=== PATIENT | male | born 1945 | race African-American/Black ===

== ENCOUNTER 2020-04-18 00:51 | Inpatient (IN) ==
--- NOTE | 2020-04-18 01:06 | Emergency Department Note ---
History of Present Illness General Chief complaint: Stroke/CVA Symptoms Stated complaint: STROKE SX Time Seen by Provider: 04/18/20 00:53 Source: patient and EMS Mode of arrival: EMS Limitations: no limitations History of Present Illness Provider complaint: Weakness Onset (ago): unknown Current Pain Intensity: 0 Associated symptoms: + malaise This is a 75-year-old male presents via EMS from home after an episode of we akness and shakiness per his daughter who called 911. Daughter is the patient's caregiver, and helps to manage his ongoing medical problems. Per EMS on their arrival patient's systolic blood pressure was in the 70s, an IV was started and he was given a 500 mL bolus of fluid which brought him up to the 90s. Patient's initial oxygen saturations in room air were in the 80s, however with 6 L via na héctor cannula he came up into the 90s also. 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 Daughter relayed to EMS that patient had blood with a bowel movement earlier today although on my interview of the patient he denies this. Patient does have a feeding tube which she states is working well. Patient denies any other medication changes, sick contact or exposure to coronavirus. Patient denies any pain. Patient states he did use his breathing treatments today as scheduled. Medications that EMS brought with for the patient show that he does take aspirin 81 mg daily, no other anticoagulation. Patient also takes medication for blood pressure, diabetes, and BPH. Pt seen during a time of high acuity and national emergency pandemic while wearing PPE. Home Medications Medication Instructions Recorded Confirmed Type amlodipine 10 mg PO QAM 05/18/18 04/18/20 History aspirin 81 mg PO QAM 05/18/18 04/18/20 History cholecalciferol (vitamin D3) 2,000 unit PO QAM 05/18/18 04/18/20 History [Vitamin D3] enalapril maleate 10 mg PO BID 05/18/18 04/18/20 History glipizide 5 mg PO DAILY 05/18/18 04/18/20 History metoprolol tartrate 50 mg PO BID 05/18/18 04/18/20 History tamsulosin 0.4 mg PO HS 05/18/18 04/18/20 History albuterol sulfate 2 puff INHALATION QID PRN 05/27/19 04/18/20 History albuterol sulfate 2.5 mg INH Q6H PRN #180 ml 05/27/19 04/18/20 Rx finasteride 5 mg PO DAILY 04/18/20 04/18/20 History Allergies Allergy/AdvReac Type Severity Reaction Status Date / Time No Known Allergies Allergy Verified 04/18/20 01:52 Past Med/Surg History Medical History (Updated 04/19/20 @ 22:05 by Chhaya Spencer DO) Acute respiratory failure with hypoxia COPD (chronic obstructive pulmonary disease) Diabetes Family history non-contributory History of head and neck cancer History of tobacco abuse Hypertension Lung nodules Tongue cancer Surgical History No pertinent past surgical history Family History Other Family history non-contributory Social History Smoking Status: Never smoker Tobacco Type: Cigarettes Hx Alcohol Use: No Hx Substance Use: No Preferred Language: [place]an Communication Ability: Effective [employer] Required: No Beliefs That Will Affect Care: None Current Living Situation: Family Feels Safe at Home: Yes Safety Concerns: Feels Safe At This Time Assistive Devices: Glasses and Walker Review of Systems See HPI for pertinent positives & negatives. and A total of 10 systems reviewed and were otherwise negative Physical Exam Vital Signs Vital Signs - 24 hr 04/18/20 00:58 04/18/20 01:20 04/18/20 01:30 Temperature 36.6 C Temperature Source Oral Pulse Rate 110 H 101 H 98 H Respiratory Rate 18 20 13 Respiratory Effort / Characteristics Non-Labored Spontaneous Respiratory Depth Normal Respiratory Pattern Regular Blood Pressure 91/60 L 99/54 L 94/53 L Blood Pressure Mean 70 69 66 Blood Pressure Position Lying Pulse Oximetry 92 94 92 Oxygen Delivery Method Room Air Room Air Room Air Sepsis Recent Fever Within 48 Hours No Sepsis New/Unexplained Change in Mental Status No Sepsis Action Taken by Nursing Physician Notified 04/18/20 02:00 04/18/20 02:46 04/18/20 03:00 Temperature Temperature Source Pulse Rate 97 H 96 H 94 H Respiratory Rate 22 20 24 Respiratory Effort / Characteristics Respiratory Depth Respiratory Pattern Blood Pressure 102/53 L 113/58 L 104/54 L Blood Pressure Mean 69 76 70 Blood Pressure Position Pulse Oximetry 93 92 93 Oxygen Delivery Method Room Air Room Air Sepsis Recent Fever Within 48 Hours Sepsis New/Unexplained Change in Mental Status Sepsis Action Taken by Nursing 04/18/20 03:30 04/18/20 04:00 Temperature Temperature Source Pulse Rate 96 H 90 Respiratory Rate 22 21 Respiratory Effort / Characteristics Respiratory Depth Respiratory Pattern Blood Pressure 103/58 L 106/56 L Blood Pressure Mean 73 72 Blood Pressure Position Pulse Oximetry 91 93 Oxygen Delivery Method Room Air Room Air Sepsis Recent Fever Within 48 Hours Sepsis New/Unexplained Change in Mental Status Sepsis Action Taken by Nursing GENERAL: alert, well appearing, well nourished, no distress, non-toxic EYE EXAM: normal conjunctiva, PERRL and EOM's grossly intact OROPHARYNX: no exudate, no erythema, lips, buccal mucosa, and mucous membranes are moist NECK: supple, no nuchal rigidity, no adenopathy, non-tender LUNGS: Clear to auscultation. Normal chest wall mechanics, no w/r/r HEART: no murmurs, S1 normal and S2 normal ABDOMEN: abdomen soft, non-tender, normo-active bowel sounds, no masses, no rebound or guarding. PEG tube noted in usual position, no surrounding erythema or drainage. BACK: Back is symmetrical on inspection and there is no deformity, no midline tenderness, no CVA tenderness. SKIN: no rashes and no bruising UPPER EXTREMITIES: upper extremities are grossly normal. FROM, nml pulses b/l. LOWER EXTREMITIES: No pitting edema. FROM, nml pulses b/l. NEURO EXAM: Normal sensorium, cranial nerves II-XII grossly intact, normal speech, no gross weakness of arms, no gross weakness of legs. Gross sensation intact. Course Course 0120: With assistance of case management we did try to review prior [facility] records. There is minimal information available. 0200: I attempted to contact the daughter. The number listed in system was called and went to voicemail which then hangs up on you because it states the mailbox is full. 0335: DIscussed CT's with STAT Rad. 0345: Updated patient on results. Patient now off oxygen at 90% which I suspect is likely his normal. Blood pressure markedly improved. We did again discuss patient's bowel movement and concern for daughter noting blood. Patient states he does struggle with constipation and has had harder stools recently. Patient states he has previously had colonoscopy that were reported to him as normal. 0435: Discussed with Dr. Brock. Patient did result Covid positive which may also be contributing to his underlying symptoms. Patient's UA also just returne d and appears positive for urinary tract infection. Administered Medications Aspirin (Aspirin 81 Mg Chew) 81 mg PEG QAM [facility] Stop: 05/18/20 09:59 Last Admin: 04/19/20 08:13 Dose: 81 mg Documented by: [id number] Admin: 04/18/20 10:24 Dose: 81 mg Documented by: [id number] Enoxaparin Sodium (Enoxaparin Inj 40 Mg/0.4 Ml Syr) 40 mg SQ DAILY [facility] Stop: 05/18/20 08:59 Last Admin: 04/19/20 08:14 Dose: 40 mg Documented by: [id number] Admin: 04/18/20 10:24 Dose: 40 mg Documented by: [id number] Enteral Nutritional Formula (Fibersource Hn 1.2 Fredo 1000 Ml Bag) 1,000 ml GT TODAY@1300 [facility]; Protocol Stop: 05/18/20 12:59 Last Admin: 04/19/20 12:24 Dose: 1,000 ml Documented by: [id number] Admin: 04/18/20 15:08 Dose: 1,000 ml Documented by: [id number] Finasteride (Finasteride 5 Mg Tab) 5 mg PO DAILY [facility] Stop: 05/18/20 08:59 Last Admin: 04/18/20 10:02 Dose: Not Given Documented by: [id number] Piperacillin Sod/Tazobactam (Sod 3.375 gm/ Dextrose) 115 mls @ 28.75 mls/hr IV Q8H [facility]; Protocol Stop: 04/25/20 13:59 Last Infusion: 04/19/20 18:00 Dose: 0 mls/hr Documented by: [id number] Admin: 04/19/20 13:59 Dose: 28.8 mls/hr Documented by: [id number] Infusion: 04/19/20 11:10 Dose: 0 mls/hr Documented by: [id number] Admin: 04/19/20 06:18 Dose: 28.8 mls/hr Documented by: [id number] Infusion: 04/19/20 00:53 Dose: 0 mls/hr Documented by: [id number] Admin: 04/18/20 20:36 Dose: 28.8 mls/hr Documented by: [id number] Infusion: 04/18/20 19:15 Dose: 0 mls/hr Documented by: [id number] Admin: 04/18/20 15:08 Dose: 28.8 mls/hr Documented by: [id number] Dexamethasone Sodium Phosphate (6 mg/ Syringe) 1.5 mls @ 1 mls/min IV DAILY [facility] Stop: 05/18/20 08:59 Last Admin: 04/19/20 08:19 Dose: 1 mls/min Documented by: [id number] Admin: 04/18/20 10:24 Dose: 1 mls/min Documented by: [id number] Insulin Aspart (Insulin Aspart 100 Units/Ml 3 Ml Pen) 0 units SC Q6 [facility] Stop: 05/19/20 11:59 Last Admin: 04/19/20 18:19 Dose: 9 units Documented by: [id number] Cosigned by: [id number] Admin: 04/19/20 12:46 Dose: 8 units Documented by: [id number] Cosigned by: [id number] Insulin Glargine (Insulin Glargine Solostar 100 Units/Ml 3 Ml Pen) 7 units SC DAILY [facility] Stop: 05/19/20 06:19 Last Admin: 04/19/20 10:59 Dose: Not Given Documented by: [id number] Admin: 04/19/20 09:00 Dose: 7 units Documented by: [id number] Cosigned by: [id number] Sterile Water (Tube Feeding Water Flush) 200 ml GT Q6H [facility] Stop: 05/19/20 14:59 Last Admin: 04/19/20 14:06 Dose: 200 ml Documented by: [id number] Umeclidinium/Vilanterol (Umeclidinium/Vilanterol 62.5/25mcg 7 Puffs/Inhaler) 1 puffs INH DAILY [facility] Stop: 05/19/20 08:59 Last Admin: 04/19/20 08:11 Dose: 1 puffs Documented by: [id number] Vitamin D (Cholecalciferol 1,000 Units 25 Mcg Tab) 2,000 units PEG QAM [facility] Stop: 05/18/20 09:59 Last Admin: 04/19/20 08:13 Dose: 2,000 units Documented by: [id number] Admin: 04/18/20 10:25 Dose: 2,000 units Documented by: [id number] Discontinued Medications Aspirin (Aspirin 81 Mg Ectab) 81 mg PO QAM [facility] Stop: 05/18/20 08:59 Last Admin: 04/18/20 10:56 Dose: Not Given Documented by: [id number] Lactated Ringer's (Lr) 1,000 mls @ 250 mls/hr IV .Q4H [facility] Stop: 05/18/20 00:59 Last Admin: 04/18/20 06:13 Dose: Not Given Documented by: [id number] Infusion: 04/18/20 05:27 Dose: 0 mls/hr Documented by: [id number] Admin: 04/18/20 01:21 Dose: 250 mls/hr Documented by: [id number] Ceftriaxone Sodium (Rocephin) 2,000 mg in 70 mls @ 140 mls/hr IV NOW STA Stop: 04/18/20 05:07 Last Infusion: 04/18/20 05:58 Dose: 0 mls/hr Documented by: [id number] Admin: 04/18/20 05:28 Dose: 140 mls/hr Documented by: [id number] Sodium Chloride (Nss 1000ml) 1,000 mls @ 999 mls/hr IV .Q1H1M ONE Stop: 04/18/20 05:49 Last Infusion: 04/18/20 06:29 Dose: 0 mls/hr Documented by: [id number] Admin: 04/18/20 05:28 Dose: 999 mls/hr Documented by: [id number] Sodium Chloride (Nss 1000ml) 1,000 mls @ 100 mls/hr IV .Q10H [facility] Stop: 05/18/20 07:59 Last Infusion: 04/19/20 19:03 Dose: 0 mls/hr Documented by: [id number] Infusion: 04/19/20 11:12 Dose: 0 mls/hr Documented by: [id number] Admin: 04/19/20 08:20 Dose: 100 mls/hr Documented by: [id number] Infusion: 04/19/20 08:19 Dose: 0 mls/hr Documented by: [id number] Admin: 04/18/20 20:37 Dose: 100 mls/hr Documented by: [id number] Infusion: 04/18/20 20:37 Dose: 100 mls/hr Documented by: [id number] Admin: 04/18/20 15:08 Dose: 100 mls/hr Documented by: [id number] Infusion: 04/18/20 15:08 Dose: 200 mls/hr Documented by: [id number] Admin: 04/18/20 10:19 Dose: 200 mls/hr Documented by: [id number] Piperacillin Sod/Tazobactam (Sod 3.375 gm/ Dextrose) 115 mls @ 230 mls/hr IV NOW STA; Protocol Stop: 04/18/20 09:01 Last Infusion: 04/18/20 10:57 Dose: 0 mls/hr Documented by: [id number] Admin: 04/18/20 10:19 Dose: 230 mls/hr Documented by: [id number] Insulin Aspart (Insulin Aspart 100 Units/Ml 3 Ml Pen) 0 units SC ACHS [facility] Stop: 05/18/20 07:31 Last Admin: 04/18/20 18:45 Dose: Not Given Documented by: [id number] Admin: 04/18/20 12:22 Dose: Not Given Documented by: [id number] Cosigned by: [id number] Admin: 04/18/20 09:45 Dose: 1 units Documented by: [id number] Cosigned by: [id number] Insulin Aspart (Insulin Aspart 100 Units/Ml 3 Ml Pen) 5 units SC NOW STA Stop: 04/19/20 06:20 Last Admin: 04/19/20 06:39 Dose: 5 units Documented by: [id number] Cosigned by: [id number] Ioversol (Optiray 320 125ml) 119 ml IV ONCE ONE Stop: 04/18/20 02:52 Last Admin: 04/18/20 02:51 Dose: 119 ml Documented by: [id number] Sterile Water (Tube Feeding Water Flush) 150 ml GT Q6H [facility] Stop: 05/18/20 14:59 Last Admin: 04/19/20 08:14 Dose: 150 ml Documented by: [id number] Admin: 04/19/20 04:26 Dose: 150 ml Documented by: [id number] Admin: 04/18/20 20:38 Dose: 150 ml Documented by: [id number] Admin: 04/18/20 15:07 Dose: 150 ml Documented by: [id number] Vitamin D (Cholecalciferol 1,000 Units 25 Mcg Tab) 2,000 units PO QAM [facility] Stop: 05/18/20 08:59 Last Admin: 04/18/20 10:56 Dose: Not Given Documented by: [id number] Medical Decision Making Differential Diagnosis Differential Diagnosis includes but is not limited to dehydration, stroke, anemia, hypoglycemia, hyponatremia, hypernatremia, urinary tract infection, pneumonia, bronchitis, sepsis, gastroenteritis, additional abdominal pathology, metabolic abnormalities and infections. Medical Records Attestation: I reviewed the patient's medical records. Home Medications Current Medication List: was personally reviewed by me Laboratory Data Attestation: I reviewed the patient's lab results. Result diagrams: 04/19/20 05:30 04/19/20 05:30 Lab Results 04/18/20 04/18/20 04/18/20 Range/Units 01:11 01:11 01:11 WBC 8.61 (4.8-10.8) K/uL RBC 4.54 L (4.7-6.1) M/uL Hgb 14.1 (14.0-18.0) g/dL Hct 41.9 L (42-52) % MCV 92.3 (80-100) fL MCH 31.1 (25-34) pg MCHC 33.7 (32-36) g/dL RDW Std Deviation 51.0 H (36.4-46.3) fL RDW Coeff of Jose R 15.0 H (11.5-14.5) % Plt Count 93 L (130-400) K/uL MPV 11.9 H (7.4-10.4) fL Neutrophils % (Manual) 74.0 % Lymphocytes % (Manual) 5.4 % Monocytes % (Manual) 3.6 % Neutrophils # (Manual) 6.37 (1.4-6.5) K/uL Total Absolute Neuts 6.37 (1.4-6.5) K/uL Lymphocytes # (Manual) 0.46 L (1.2-3.4) K/uL Total Abs Lymphocytes 1.93 (1.2-3.4) K/uL Monocytes # (Manual) 0.31 (0.11-0.59) K/uL Large Granular Lymphs 17.0 % # Lrg Granular Lymphs 1.46 K/uL RBC Morphology Unremarkable PT (9.0-12.0) Seconds INR (0.9-1.1) Sodium (136-145) mmol/L Potassium (3.5-5.1) mmol/L Chloride (98-107) mmol/L Carbon Dioxide (21-32) mmol/L Anion Gap (3-11) BUN (7-18) mg/dl Creatinine (0.6-1.4) mg/dl Est Cr Clr Drug Dosing ml/min Est GFR ( Amer) Est GFR (Non-Af Amer) BUN/Creatinine Ratio (10-20) Glucose (70-99) mg/dl Lactate 2.3 H* (0.4-2.0) mmol/L Calcium (8.5-10.1) mg/dl Magnesium (1.8-2.4) mg/dl Total Bilirubin (0.2-1) mg/dl AST (15-37) U/L ALT (12-78) U/L Alkaline Phosphatase (45-117) U/L Troponin I (0-0.045) ng/ml NT-Pro-B Natriuret Pep (0-1800) pg/ml Total Protein (6.4-8.2) gm/dl Albumin (3.4-5.0) gm/dl Globulin (2.5-4.0) gm/dl Albumin/Globulin Ratio (0.9-2) Lipase (73-393) U/L Procalcitonin (0-0.5) ng/ml TSH (0.300-4.500) uIu/ml Urine Color Urine Appearance (Clear) Urine pH (4.5-7.5) Ur Specific [place] (1.000-1.030) Urine Protein (Negative) Urine Glucose (UA) (Negative) Urine Ketones (Negative) Urine Blood (Negative) Urine Nitrite (Negative) Urine Bilirubin (Negative) Urine Urobilinogen (Negative) Ur Leukocyte Esterase (Negative) Urine WBC (Auto) (0-5) /hpf Urine RBC (Auto) (0-4) /hpf U Hyaline Cast (Auto) (0-5) /lpf U Epithel Cells (Auto) (0-5) /lpf Urine Bacteria (Auto) (Negative) COVID-19 Eval Order SARS-CoV-2, RNA, NAAT (NEGATIVE) Blood Type A Positive Antibody Screen NEGATIVE 04/18/20 04/18/20 04/18/20 Range/Units 01:11 01:11 01:12 WBC (4.8-10.8) K/uL RBC (4.7-6.1) M/uL Hgb (14.0-18.0) g/dL Hct (42-52) % MCV (80-100) fL MCH (25-34) pg MCHC (32-36) g/dL RDW Std Deviation (36.4-46.3) fL RDW Coeff of Jose R (11.5-14.5) % Plt Count (130-400) K/uL MPV (7.4-10.4) fL Neutrophils % (Manual) % Lymphocytes % (Manual) % Monocytes % (Manual) % Neutrophils # (Manual) (1.4-6.5) K/uL Total Absolute Neuts (1.4-6.5) K/uL Lymphocytes # (Manual) (1.2-3.4) K/uL Total Abs Lymphocytes (1.2-3.4) K/uL Monocytes # (Manual) (0.11-0.59) K/uL Large Granular Lymphs % # Lrg Granular Lymphs K/uL RBC Morphology PT 10.7 (9.0-12.0) Seconds INR 1.1 (0.9-1.1) Sodium 145 (136-145) mmol/L Potassium 3.5 (3.5-5.1) mmol/L Chloride 111 H (98-107) mmol/L Carbon Dioxide 27 (21-32) mmol/L Anion Gap 7.0 (3-11) BUN 47 H (7-18) mg/dl Creatinine 1.62 H (0.6-1.4) mg/dl Est Cr Clr Drug Dosing 34.7 ml/min Est GFR ( Amer) 47.1 Est GFR (Non-Af Amer) 40.6 BUN/Creatinine Ratio 29.1 H (10-20) Glucose 264 H (70-99) mg/dl Lactate (0.4-2.0) mmol/L Calcium 8.0 L (8.5-10.1) mg/dl Magnesium 2.2 (1.8-2.4) mg/dl Total Bilirubin 0.7 (0.2-1) mg/dl AST 41 H (15-37) U/L ALT 29 (12-78) U/L Alkaline Phosphatase 86 (45-117) U/L Troponin I 0.067 H* (0-0.045) ng/ml NT-Pro-B Natriuret Pep 631 (0-1800) pg/ml Total Protein 6.7 (6.4-8.2) gm/dl Albumin 2.4 L (3.4-5.0) gm/dl Globulin 4.3 H (2.5-4.0) gm/dl Albumin/Globulin Ratio 0.6 L (0.9-2) Lipase 448 H (73-393) U/L Procalcitonin 1.39 H (0-0.5) ng/ml TSH 0.692 (0.300-4.500) uIu/ml Urine Color Urine Appearance (Clear) Urine pH (4.5-7.5) Ur Specific [place] (1.000-1.030) Urine Protein (Negative) Urine Glucose (UA) (Negative) Urine Ketones (Negative) Urine Blood (Negative) Urine Nitrite (Negative) Urine Bilirubin (Negative) Urine Urobilinogen (Negative) Ur Leukocyte Esterase (Negative) Urine WBC (Auto) (0-5) /hpf Urine RBC (Auto) (0-4) /hpf U Hyaline Cast (Auto) (0-5) /lpf U Epithel Cells (Auto) (0-5) /lpf Urine Bacteria (Auto) (Negative) COVID-19 Eval Order SARS-CoV-2, RNA, NAAT (NEGATIVE) Blood Type Antibody Screen 04/18/20 04/18/20 04/18/20 Range/Units 03:30 04:10 04:12 WBC (4.8-10.8) K/uL RBC (4.7-6.1) M/uL Hgb (14.0-18.0) g/dL Hct (42-52) % MCV (80-100) fL MCH (25-34) pg MCHC (32-36) g/dL RDW Std Deviation (36.4-46.3) fL RDW Coeff of Jose R (11.5-14.5) % Plt Count (130-400) K/uL MPV (7.4-10.4) fL Neutrophils % (Manual) % Lymphocytes % (Manual) % Monocytes % (Manual) % Neutrophils # (Manual) (1.4-6.5) K/uL Total Absolute Neuts (1.4-6.5) K/uL Lymphocytes # (Manual) (1.2-3.4) K/uL Total Abs Lymphocytes (1.2-3.4) K/uL Monocytes # (Manual) (0.11-0.59) K/uL Large Granular Lymphs % # Lrg Granular Lymphs K/uL RBC Morphology PT (9.0-12.0) Seconds INR (0.9-1.1) Sodium (136-145) mmol/L Potassium (3.5-5.1) mmol/L Chloride (98-107) mmol/L Carbon Dioxide (21-32) mmol/L Anion Gap (3-11) BUN (7-18) mg/dl Creatinine (0.6-1.4) mg/dl Est Cr Clr Drug Dosing ml/min Est GFR ( Amer) Est GFR (Non-Af Amer) BUN/Creatinine Ratio (10-20) Glucose (70-99) mg/dl Lactate 1.4 (0.4-2.0) mmol/L Calcium (8.5-10.1) mg/dl Magnesium (1.8-2.4) mg/dl Total Bilirubin (0.2-1) mg/dl AST (15-37) U/L ALT (12-78) U/L Alkaline Phosphatase (45-117) U/L Troponin I (0-0.045) ng/ml NT-Pro-B Natriuret Pep (0-1800) pg/ml Total Protein (6.4-8.2) gm/dl Albumin (3.4-5.0) gm/dl Globulin (2.5-4.0) gm/dl Albumin/Globulin Ratio (0.9-2) Lipase (73-393) U/L Procalcitonin (0-0.5) ng/ml TSH (0.300-4.500) uIu/ml Urine Color Yellow Urine Appearance Clear (Clear) Urine pH 5.0 (4.5-7.5) Ur Specific [place] > 1.045 H (1.000-1.030) Urine Protein 1+ H (Negative) Urine Glucose (UA) Negative (Negative) Urine Ketones Negative (Negative) Urine Blood 2+ H (Negative) Urine Nitrite Positive A (Negative) Urine Bilirubin Negative (Negative) Urine Urobilinogen Negative (Negative) Ur Leukocyte Esterase 1+ H (Negative) Urine WBC (Auto) >30 H (0-5) /hpf Urine RBC (Auto) 0-4 (0-4) /hpf U Hyaline Cast (Auto) 5-10 H (0-5) /lpf U Epithel Cells (Auto) 0-5 (0-5) /lpf Urine Bacteria (Auto) 4+ H (Negative) COVID-19 Eval Order Covid19 IDNow atMWIC SARS-CoV-2, RNA, NAAT (NEGATIVE) Blood Type Antibody Screen 04/18/20 Range/Units 04:12 WBC (4.8-10.8) K/uL RBC (4.7-6.1) M/uL Hgb (14.0-18.0) g/dL Hct (42-52) % MCV (80-100) fL MCH (25-34) pg MCHC (32-36) g/dL RDW Std Deviation (36.4-46.3) fL RDW Coeff of Jose R (11.5-14.5) % Plt Count (130-400) K/uL MPV (7.4-10.4) fL Neutrophils % (Manual) % Lymphocytes % (Manual) % Monocytes % (Manual) % Neutrophils # (Manual) (1.4-6.5) K/uL Total Absolute Neuts (1.4-6.5) K/uL Lymphocytes # (Manual) (1.2-3.4) K/uL Total Abs Lymphocytes (1.2-3.4) K/uL Monocytes # (Manual) (0.11-0.59) K/uL Large Granular Lymphs % # Lrg Granular Lymphs K/uL RBC Morphology PT (9.0-12.0) Seconds INR (0.9-1.1) Sodium (136-145) mmol/L Potassium (3.5-5.1) mmol/L Chloride (98-107) mmol/L Carbon Dioxide (21-32) mmol/L Anion Gap (3-11) BUN (7-18) mg/dl Creatinine (0.6-1.4) mg/dl Est Cr Clr Drug Dosing ml/min Est GFR ( Amer) Est GFR (Non-Af Amer) BUN/Creatinine Ratio (10-20) Glucose (70-99) mg/dl Lactate (0.4-2.0) mmol/L Calcium (8.5-10.1) mg/dl Magnesium (1.8-2.4) mg/dl Total Bilirubin (0.2-1) mg/dl AST (15-37) U/L ALT (12-78) U/L Alkaline Phosphatase (45-117) U/L Troponin I (0-0.045) ng/ml NT-Pro-B Natriuret Pep (0-1800) pg/ml Total Protein (6.4-8.2) gm/dl Albumin (3.4-5.0) gm/dl Globulin (2.5-4.0) gm/dl Albumin/Globulin Ratio (0.9-2) Lipase (73-393) U/L Procalcitonin (0-0.5) ng/ml TSH (0.300-4.500) uIu/ml Urine Color Urine Appearance (Clear) Urine pH (4.5-7.5) Ur Specific [place] (1.000-1.030) Urine Protein (Negative) Urine Glucose (UA) (Negative) Urine Ketones (Negative) Urine Blood (Negative) Urine Nitrite (Negative) Urine Bilirubin (Negative) Urine Urobilinogen (Negative) Ur Leukocyte Esterase (Negative) Urine WBC (Auto) (0-5) /hpf Urine RBC (Auto) (0-4) /hpf U Hyaline Cast (Auto) (0-5) /lpf U Epithel Cells (Auto) (0-5) /lpf Urine Bacteria (Auto) (Negative) COVID-19 Eval Order SARS-CoV-2, RNA, NAAT POSITIVE A* (NEGATIVE) Blood Type Antibody Screen Imaging Data My Impression: X-ray: I interpreted the following studies. Chest: A single view study of the chest was reviewed and was negative for cardiomegaly, focal infiltrate, effusion, pulmonary edema, or wide mediastinum. Patient hyperinflated consistent with history of COPD. Radiologist's Impression: CT abdomen and pelvis with contrast: Thoracic findings as on CTA chest also today. 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 Large amount of mural thrombus. 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 The left common iliac, external and internal iliac arteries as well as the left internal iliac arteries are thrombosed. Focal thrombosis or stenosis of the right distal external iliac artery. Reconstitution opacification of the common femoral arteries. The right superficial artery is partially visualized and appears thrombosed. Limited evaluation. Percutaneous gastrostomy tube. Small hiatal hernia. No free air, free fluid. No bowel obstruction. No CT findings of acute pancreatitis. Gallstones or gallbladder wall calcification. Left renal cyst. Colonic diverticulosis of the ascending colon. Radiologist: Chandan Solorzano MD CTA chest: Breathing motion artifact limits evaluation of peripheral arteries. No central PE. No aortic dissection or aneurysm. Mediastinal and right hilar adenopathy. Precarinal node 2.6 cm. Query right infrahilar 2.7 cm mass versus part of adenopathy. Right upper lobe 11 mm nodule. Overall findings worrisome for malignancy. Recommend further work-up. Emphysema. Small focus of airspace disease or small nodularity also in the right upper lobe. Left lower lobe atelectasis or consolidation. Mild right lower lobe atelectasis. Radiologist: Chandan Solorzano MD ECG Data Attestation: I personally reviewed and interpreted this ECG as follows: Indication: + weakness Rate (beats per minute): 101 Rhythm: + sinus tachycardia ECG Intervals/blocks: + Normal QRS and + Normal QT ECG [place]: + Normal ECG ST segments: + Normal ST segments Additional Comments: Low voltage MDM Narrative This is an elderly male who presents via EMS after an episode of weakness at home. On initial evaluation from EMS patient found to be hypotensive and hypoxic. Patient's blood pressure was improved although still slightly low here on arrival after 500 mL bolus by EMS in route. Patient's oxygen saturations were in the mid 90s on 6 L via nasal cannula. Due to concern for condition as well as complicated past medical history, labs drawn and sent, patient started on additional IV fluids, and placed on a bus assistant. No ectopy or dysrhythmia noted. Patient's initial blood pressures in the 90s systolic. Ash cisneros denied any sense of weakness or shortness of breath during my initial evaluation. Patient cannot give medical history, does not always recall exact details. Patient able to be weaned off oxygen here and was holding oxygen saturations around 90 which I suspect is normal for him given his history of tobacco abuse and underlying COPD. Patient found to have a mildly elevated troponin, although EKG did not reveal any acutely concerning changes, patient denied any chest pain or trouble breathing while in the emergency room. Due to concern for unclear etiology as well as initial abnormal vitals but noticed by EMS, patient sent for additional CT imaging. Patient also found to have an elev ated lipase, and in light of questionable blood with a bowel movement, CT of the abdomen and pelvis was also added. I did discuss all results with the reading nighttime radiologist. The vascular findings noted appear to be chronic, and I do not feel the contribute to the findings this evening. Upon performing Covid testing for admission, patient was found to be Covid positive despite denying an y recent sick contacts or exposures. All this likely could explain his weakness, hypoxia, and even elevated troponin, patient still at risk for poor outcome. No evidence of colitis, bowel obstruction, mesenteric ischemia, or acute GI bleeding noted. Patient does admit to constipation and recent harder bowel movements with the need to push or strain. Patient wished to avoid a rectal exam, I feel it is reasonable at this time given stable H&H and unremarkable CT. Patient stools could be tested while he is an inpatient. Patient does use an aspirin daily no other anticoagulation. During my discussion with the hospitalist, patient's UA finally resulted also and did appear to reveal urinary tract infection. In light of this as well as patient's risk for sepsis, a procalcitonin and blood cultures were added. Patient's initial lactic acid was mildly elevated however the repeat was improved. Additional IV fluids were added as a precaution as well as IV antibiotics. An order was placed for continuous cardiac monitoring. The monitor shows a rate of _86_ with _normal sinus_ rhythm. Impression & Plan Hypoxia, Uses feeding tube, COPD (chronic obstructive pulmonary disease), Weakness, Hypotension, Acute UTI (urinary tract infection), Elevated troponin, COVID-19, Thrombocytopenia, Hyperglycemia due to diabetes mellitus Discharge Plan Visit Data Chief Complaint: Stroke/CVA Symptoms Stated Complaint: STROKE SX ED Provider: Chhaya Spencer Discharge Problem: Hypoxia, Uses feeding tube, COPD (chronic obstructive pulmonary disease), Weakn ess, Hypotension, Acute UTI (urinary tract infection), Elevated troponin, COVID- 19, Thrombocytopenia, Hyperglycemia due to diabetes mellitus Patient Disposition: Admitted As Inpatient Discharge Instructions Interventions: ED Discharge Assessment Last Done: 04/18/20 06:27 Discharge Problem: COPD (chronic obstructive pulmonary disease) Qualifiers: COPD type: unspecified COPD Qualified Code(s): J44.9 - Chronic obstructive pulmonary disease, unspecified Hypotension Qualifiers: Hypotension type: unspecified hypotension type Qualified Code(s): I95.9 - Hypotension, unspecified
[2020-04-18] MEDS: LACTATED RINGER'S 1,000 ML IV SCH ×2 (01:21→06:13)
[2020-04-18 01:34] LABS: INR 1.1 (0.9-1.1); Prothrombin Time 10.7 Seconds (9.0-12.0)
[2020-04-18 01:42] LABS: Hematocrit (blood only) 41.9 % (42-52); Hemoglobin 14.1 g/dL (14.0-18.0); Mean Corpuscular Hemoglobin 31.1 pg (25-34); Mean Corpuscular Hgb Conc 33.7 g/dL (32-36); Mean Corpuscular Volume 92.3 fL (80-100); Mean Platelet Volume 11.9 fL (7.4-10.4); Platelet Count 93 K/uL (130-400); Red Blood Count 4.54 M/uL (4.7-6.1); White Blood Count 8.61 K/uL (4.8-10.8)
[2020-04-18 01:56] LABS: Albumin Level 2.4 gm/dl (3.4-5.0); BUN Creatinine Ratio 29.1 (10-20); Creatinine Clr Calc Pharmacy 34.7 ml/min; Est GFR (African American) 47.1; Est GFR (Non-African American) 40.6; Magnesium 2.2 mg/dl (1.8-2.4); Potassium 3.5 mmol/L (3.5-5.1)
[2020-04-18 02:06] LABS: ALC (manual) 1.93 K/uL (1.2-3.4); ANC (manual) 6.37 K/uL (1.4-6.5); Large Granular Lymph # (manua 1.46 K/uL; Lymphocytes # (manual) 0.46 K/uL (1.2-3.4); Lymphocytes % (manual) 5.4 %; Monocytes # (manual) 0.31 K/uL (0.11-0.59); Monocytes % (manual) 3.6 %; Neutrophils # (manual) 6.37 K/uL (1.4-6.5); RBC Morphology Unremarkable
[2020-04-18 02:12] LABS: Albumin Globulin Ratio 0.6 (0.9-2); Bilirubin,Total 0.7 mg/dl (0.2-1); Globulin 4.3 gm/dl (2.5-4.0); Thyroid Stimulating Hormone 0.692 uIu/ml (0.300-4.500); Total Protein 6.7 gm/dl (6.4-8.2); Troponin I 0.067 ng/ml (0-0.045)
[2020-04-18] MEDS ORDERED: OPTIRAY 320 125ml IV ONE (02:51)
[2020-04-18 04:24] LABS: Appearance Urine Clear (Clear); Bacteria Urine Automated 4+ (Negative); Bilirubin Urine Negative (Negative); Blood Urine 2+ (Negative); Color Urine Yellow; Epithelial Cell Urine Auto 0-5 /lpf (0-5); Glucose Urine UA Negative (Negative); Ketones Urine Negative (Negative); Leukocyte Esterase Urine 1+ (Negative); Nitrite Urine Positive (Negative); Protein Urine 1+ (Negative); RBC Urine Automated 0-4 /hpf (0-4); Specific Gravity Urine > 1.045 (1.000-1.030); Urobilinogen Urine Negative (Negative); WBC Urine Automated >30 /hpf (0-5)
[2020-04-18] MEDS ORDERED: cefTRIAXone SODIUM 2,000 MG/70 ML BAG IV STA (04:38)
[2020-04-18] MEDS ORDERED: SODIUM CHLORIDE 0.9% 1000ML 1,000 ML IV ONE (04:49)
--- NOTE | 2020-04-18 07:18 | CT Scan Report ---
CT abd pelvis IV con only CLINICAL HISTORY: GI bleed. Elevated lipase. COMPARISON STUDY: None. TECHNIQUE: Patient was scanned in a dynamic helical fashion during intravenous administration of 119 cc Optiray 320 A dose lowering technique was utilized adhering to the principles of ALARA. CT DOSE: 603.39 mGy.cm FINDINGS: Lower chest: There is bibasilar atelectasis/consolidation. There is lower lobe bronchial wall thicken ing. Liver: The contrast-enhanced liver is normal in size, contour, and attenuation. There is no intrahepa tic biliary ductal dilatation. The hepatic veins and portal veins are patent. Gallbladder: Cholelithiasis Spleen: Normal in size and attenuation. Pancreas: Masses are visualized. There is no ductal dilatation. There is a pancreatic head calcification Adrenal glands: Unremarkable. Kidneys: There is a 5.5 cm left renal cyst. There is no hydronephrosis. Bowel: There is an indwelling gastrostomy tube. There are no transition zones to indicate bowel obstr uction. There is no evidence of acute diverticulitis. There are no findings to indicate acute appendi citis. Peritoneum: There is no intraperitoneal free air or abdominal ascites. Vasculature: There are diffuse atheromatous changes. There is a 32 mm infrarenal abdominal aortic ane urysm. There is a 29 mm left common iliac artery aneurysm. There is a 24 mm left common iliac artery aneurysm. The left common iliac artery appears occluded. There is reconstitution at the level the lef t common femoral artery. Both internal iliac arteries appear occluded. There is a high-grade stenosis of the distal right external iliac artery. Adenopathy: None. Pelvic viscera: There is mild prostatomegaly Skeletal structures: There is a nonspecific 8 mm sclerotic lesion within the right iliac bone IMPRESSION: 1. Bilateral lower lobe atelectasis/consolidation 2. Cholelithiasis 3. No evidence of bowel obstruction. No evidence of free air 4. 32 mm infrarenal abdominal aortic aneurysm 5. 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 Occlusion of b oth internal iliac arteries. ACT 112: Negative or not required by law. Electronically signed by: Danny Reddy M.D. 04/18/2020 7:17 AM
[2020-04-18] MEDS ORDERED: ALBUTEROL HFA 8 GM INHALER INH PRN (07:32)
[2020-04-18] MEDS ORDERED: ONDANSETRON INJ 2 MG/ML 2 ML VIAL IV PRN (07:32)
[2020-04-18] MEDS ORDERED: ALBUTEROL 0.083% NEBU SOLN 3 ML VIAL INH PRN (07:32)
[2020-04-18] MEDS ORDERED: NITROGLYCERIN SL 0.4 MG/TAB TAB SL PRN (07:32)
[2020-04-18] MEDS ORDERED: METOPROLOL TARTRATE 1 MG/ML VIAL IV PRN (07:32)
[2020-04-18] MEDS ORDERED: ACETAMINOPHEN 325 MG TAB PO PRN (07:32)
--- NOTE | 2020-04-18 07:44 | XRay Report ---
XR chest 1V portable HISTORY: Shortness of breath. COMPARISON: None. FINDINGS: No pneumothorax. No pleural effusions. The heart is normal in size. Linear density at the l eft lung base. Right hilar prominence. A 12 mm right upper lobe nodule. The lungs are hyperexpanded w ith apical predominant emphysematous changes. The heart is normal in size. No evidence for pulmonary edema. IMPRESSION: 1. Emphysema. 2. 12 mm right upper lobe nodule. 3. Right hilar prominence. This could be due to lymphadenopathy or a normal pulmonary vessels. 4. Left basilar patchy densities. This may represent atelectasis or pneumonia. ACT 112: Negative or not required by law. Electronically signed by: Paul Lim M.D. 04/18/2020 7:42 AM
--- NOTE | 2020-04-18 07:56 | CT Scan Report ---
CHEST CTA for PULMONARY ARTERIES CT DOSE: HISTORY: Shortness of breath. TECHNIQUE: Multiaxial CT images of the chest were performed following the intravenous administration of contrast to evaluate the pulmonary arteries. Maximal intensity projection images were also obtaine d. A dose lowering technique was utilized adhering to the principles of ALARA. COMPARISON STUDY: None. FINDINGS: Normal caliber thoracic aorta with no evidence for dissection. The proximal right vertebral artery appears occluded. The heart is top normal in size. Suboptimal evaluation the right lower lobe and left lower lobe segmental/subsegmental pulmonary arteries due to the motion artifact. Otherwise, no definite filling defects within the remaining pulmonary arteries to suggest pulmonary embolus. No suspicious lytic or blastic osseous lesions. Biapical linear consolidation favors fibrotic change an d could be due to prior radiation therapy. There is moderate emphysema. Patchy bibasilar densities wi thin the lower lobes, left greater than right. This is concerning for an aspiration pneumonia. Small amount of mucoid material within the trachea and mainstem bronchi. There is a 2 cm left apical bleb. There is a 12 mm lobulated nodule within the right upper lobe on image 186. Small patchy density with in the right upper lobe also on image 186. There is an irregular central right middle lobe mass/lymph adenopathy is best seen on image 120. This measures 2.9 cm. There is also right hilar and right parat rayna lymphadenopathy. No left hilar lymphadenopathy. Dominant right paratracheal lymph node measur es 3.1 cm. IMPRESSION: 1. No evidence for pulmonary embolus with limitations as described above. 2. There is right paratracheal and right hilar lymphadenopathy. There is also a 2.9 cm irregular cent ral right middle lobe mass/lymphadenopathy. Bronchoscopy recommended for further evaluation and to ex clude a primary bronchogenic malignancy. 3. There is a 12 mm lobulated nodule within the right upper lobe which may represent a metastatic foc us. 4. Small amount of mucoid material within the bilateral mainstem bronchi and small patchy bilateral l ower lobe densities, left greater than right. This could represent an aspiration pneumonia. 5. 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 6. Emphysema. ACT 112: Negative or not required by law. Electronically signed by: Paul Lim M.D. 04/18/2020 7:55 AM
[2020-04-18] MEDS ORDERED: PIPERACILL/TAZOBAC CONSULT ACTIVE PRN (08:11)
--- NOTE | 2020-04-18 08:14 | Gastrointestinal Consultation ---
Date of Consultation April 18, 2020 Assessment & Plan (1) Elevated lipase: Likely secondary to COVID. No abd pain (according to the ED and H&P notes as well as the nurse providing care). LFTs are normal so do not suspect gallstone pancreatitis. No CT suggestion of pancreatitis. GI will sign off. Please let us know if any new/worsening GI issues. Recommend OP EUS in approx 6-8. Present on Admission?: Yes Supervising Physician Co-Signing Physician Notes Patient was recently diagnosed with Covid, we were consulted with regard to an elevated lipase. The patient's chart and imaging studies were reviewed. It is not clear that the patient actually has pancreatitis and I would suggest outpatient endoscopic ultrasound in 6 to 8 weeks. Perhaps the patient's sympt oms are related to his Covid infection. Please call with any questions or concerns. History of Present Illness Reason for Consultation: pancreatitis? Requesting Physician: Dr. Brock Attending Physician: Lorin Estevez MD History of Present Illness Mr. Mickey Davenport is a 75 yr old male with a hx of COPD, Emphysema, HTN, DM who was brought to the ED very early this morning for weakness, shaking. On arrival, he is COVID (+), w/o fever or leukocytosis. Lipase is elevated at 448. LFTs are normal. CT w/o evidence of pancreatitis or masses. Records reviewed, spoke with the nurse caring for him. Diagnostic imaging and labs reviewed. PE of the pt deferred due to COVID + and elevated lipase likely not clinically significant. Allergies Allergy/AdvReac Type Severity Reaction Status Date / Time No Known Allergies Allergy Verified 04/18/20 01:52 Home Medications Medication Instructions Recorded Confirmed Type amlodipine 10 mg PO QAM 05/18/18 04/18/20 History aspirin 81 mg PO QAM 05/18/18 04/18/20 History cholecalciferol (vitamin D3) 2,000 unit PO QAM 05/18/18 04/18/20 History [Vitamin D3] enalapril maleate 10 mg PO BID 05/18/18 04/18/20 History glipizide 5 mg PO DAILY 05/18/18 04/18/20 History metoprolol tartrate 50 mg PO BID 05/18/18 04/18/20 History tamsulosin 0.4 mg PO HS 05/18/18 04/18/20 History albuterol sulfate 2 puff INHALATION QID PRN 05/27/19 04/18/20 History albuterol sulfate 2.5 mg INH Q6H PRN #180 ml 05/27/19 04/18/20 Rx finasteride 5 mg PO DAILY 04/18/20 04/18/20 History Patient History Medical History (Updated 04/18/20 @ 15:13 by Lorin Estevez MD) Acute respiratory failure with hypoxia COPD (chronic obstructive pulmonary disease) Diabetes Family history non-contributory History of head and neck cancer History of tobacco abuse Hypertension Lung nodules Tongue cancer Surgical History No pertinent past surgical history Family History Other Family history non-contributory Social History Smoking Status: Never smoker Tobacco Type: Cigarettes Hx Alcohol Use: No Hx Substance Use: No Preferred Language: Wolof Communication Ability: Effective Ethnographer Required: No Beliefs That Will Affect Care: None Current Living Situation: Family Feels Safe at Home: Yes Safety Concerns: Feels Safe At This Time Assistive Devices: Glasses Review of Systems Review of Systems: ROS not obtained. Physical Exam Physical Exam: Deferred Results & Data ([facility]) Vital Signs (Past 12 Hours) Vital Signs Temp Pulse Resp BP BP Pulse Ox 04/18/20 07:18 36.4 C L 20 109/65 91 04/18/20 06:00 88 19 113/52 L 93 04/18/20 05:30 88 21 97/55 L 92 04/18/20 05:00 87 22 86/54 L 100 04/18/20 04:30 89 18 95/54 L 100 04/18/20 04:00 90 21 106/56 L 93 04/18/20 03:30 96 H 22 103/58 L 91 04/18/20 03:00 94 H 24 104/54 L 93 04/18/20 02:46 96 H 20 113/58 L 92 04/18/20 02:00 97 H 22 102/53 L 93 04/18/20 01:30 98 H 13 94/53 L 92 04/18/20 01:20 101 H 20 99/54 L 94 04/18/20 00:58 36.6 C 110 H 18 91/60 L 92 Laboratory Results WBC 8, Hb 14, Hct 41, glucose 93, Na 145, K 3.5, Cl 111, CO2 27 BUN 47, Cr 1.62. Lipase 488, T bili 0.7, Alk Ph 41, ALT 29, Alk Phos 86. Diagnostic Findings CT abd/pelvis IV contrast 04/18/20: 1. Bilateral lower lobe atelectasis/consolidation 2. Cholelithiasis 3. No evidence of bowel obstruction. No evidence of free air 4. 32 mm infrarenal abdominal aortic aneurysm 5. 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 Occlusion of both internal iliac arteries. CXR 04/18: 1. Emphysema. 2. 12 mm right upper lobe nodule. 3. Right hilar prominence. This could be due to lymphadenopathy or a normal pulmonary vessels. 4. Left basilar patchy densities. This may represent atelectasis or pneumonia. CT chest 04/18/20: 1. No evidence for pulmonary embolus with limitations as described above. 2. There is right paratracheal and right hilar lymphadenopathy. There is also a 2.9 cm irregular central right middle lobe mass/lymphadenopathy. Bronchoscopy recommended for further evaluation and to exclude a primary bronchogenic malignancy. 3. There is a 12 mm lobulated nodule within the right upper lobe which may represent a metastatic focus. 4. Small amount of mucoid material within the bilateral mainstem bronchi and small patchy bilateral lower lobe densities, left greater than right. This could represent an aspiration pneumonia. 5. 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 6. Emphysema
[2020-04-18] MEDS ORDERED: PIPERACILLIN/TAZOBACTAM 3.375 GM in DEXTROSE 5% 100 ML IV STA (08:32)
[2020-04-18] MEDS ORDERED: CHOLECALCIFEROL 1,000 UNITS 25 MCG TAB PO SCH (09:00)
[2020-04-18] MEDS ORDERED: DEXAMETHASONE SOD INJ 10 MG/ML VIAL IV SCH (09:00)
[2020-04-18] MEDS ORDERED: ASPIRIN 81 MG ECTAB PO SCH (09:00)
--- NOTE | 2020-04-18 09:00 | History and Physical Report ---
DATE OF ADMISSION: 04/18/2020 CHIEF COMPLAINT: Chills, hypotension, COVID. HISTORY OF PRESENT ILLNESS: This is a 75-year-old male with past medical history significant for type 2 diabetes, asthma, hypertension, history of tongue cancer, status post surgery and radiation, status post gastrostomy, mild depression, who lives with his daughter, ambulates with a walker. EMS was called because the patient had chills and shakiness and when the EMS arrived, he was hypotensive. With the fluid bolus, blood pressure improved and he was saturating 82% and with oxygen saturation improved. In the ER when he came in, blood pressure was in the 90s. With the fluids, blood pressure improved. Currently, he was tapered off of oxygen and saturating 93% on room air. He has chronic cough with phlegm, which is nothing new. Denies any fevers. Just is feeling cold. Denies any shortness of breath, no chest pain. No headache, no blurred vision, no runny nose, no sore throat. He takes all his pills from the gastrostomy tube and also is on tube feedings. He says he is somewhat constipated. No abdominal pain, no nausea. Normal bladder movements. No rash. Currently resting comfortably and hemodynamically stable. Denies any COVID exposure. No one is sick in the family.Because of surgery for his mouth cancer difficult to understand him. ALLERGIES: No known drug allergies. PAST MEDICAL HISTORY: As mentioned above. PAST SURGICAL HISTORY: Feeding tube. Surgery for mouth cancer. MEDICATIONS: Currently, the patient is on amlodipine 10 mg p.o. daily, Vasotec 10 mg p.o. b.i.d., glipizide 10 mg p.o. daily, Toprol-XL 50 mg p.o. daily, aspirin 81 mg p.o. daily, Flomax 0.4 mg p.o. daily, Proscar 5 mg p.o. daily, vitamin D 1 mL p.o. daily, albuterol 2 puffs every 4 hours p.r.n. FAMILY HISTORY: Significant for brother had cancer. Mother had cancer. SOCIAL HISTORY: Currently living with his daughter. Former smoker, quit in 1999. No alcohol, no drug use. REVIEW OF SYMPTOMS: As per HPI. Rest of review of systems negative. PHYSICAL EXAMINATION: GENERAL: The patient is of moderate build, not in acute distress. VITAL SIGNS: Temperature 36.4, pulse when he came was in the 90s, currently 88, blood pressure when he came in was 95/54 currently 113/52, oxygen 93% on room air. 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 Right eye pupil is reactive to light. Oral mucosa somewhat dry. NECK: No JVD, no neck masses. CARDIOVASCULAR: S1, S2 heard, regular rate and rhythm, no murmur, no gallop. RESPIRATORY SYSTEM: Normal AP diameter. No accessory muscle use. No wheezing, no crackles. ABDOMEN: Soft, bowel sounds present. Gastrostomy tube seen. Gastrostomy tube site slightly excoriation of the skin, but no drainage seen. EXTREMITIES: No edema, no erythema. CENTRAL NERVOUS SYSTEM: Nonfocal. LABORATORY DATA: WBC is 8.6, hemoglobin 14.1, hematocrit 41.9, platelets 93. PT 10.7, INR 1.1. Sodium 145, potassium 3.5, chloride 111, bicarbonate 27, BUN 47, creatinine 1.6, serum glucose 264. Lactate 1.4, calcium 8, magnesium 2.2, total bilirubin 0.7, AST 41, ALT 20, alkaline phosphatase 86, troponin I 0.06, lipase 448. Procalcitonin 1.39. TSH 0.69. Urinalysis positive for nitrite and leukocyte esterase and +4 bacteria. SARS-CoV-2 RNA NAAT positive. IMAGING: Chest x-ray, no acute findings. CT of the abdomen and pelvis preliminary report infrarenal abdominal aorta aneurysm 3.2cm, bilateral common iliac arteries aneurysm occlusion of left common iliac artery. Occlusion of both internal iliac artery CTA of the chest, no central PE, no aortic dissection or aneurysm, questionable right infrahilar 2.7 cm mass versus adenopathy. Right upper lobe 11 mm nodule. EKG: Sinus tachycardia rate of 10 with PAC. ASSESSMENT AND PLAN: This 75-year-old male with history of tobacco abuse, smoking, asthma, chronic obstructive pulmonary disease, mouth cancer status post surgery, radiation and G-tube presents with urinary tract infection and COVID. 1. COVID-19 positive patient. Daughter called because patient was having chills and shakiness and he was hypotensive, hypoxic in the house. Currently, blood pressure improved with the fluid bolus and is currently saturating fine on room air at 93%. CTA of the chest, no obvious infiltrates or ground-glass opacities and currently does not meet criteria for remdesivir. We will continue with IV Decadron and closely monitor in tele floor. 2. Questionable lung mass. We will follow the final report of the CAT scan and if this shows a mass we will consult pulmonary. History of smoking. 3. Urinary tract infection, could be cause of his hypotension and chills starting on Rocephin. We will follow the cultures. 4. Acute kidney injury. Baseline creatinine around 1.1 in 11/2018, currently creatinine of 1.6. Getting fluids. We will follow the labs. 5. Possible acute pancreatitis. Lipase is elevated at 448. Per the patient, he does not have any abdominal pain, nausea, vomiting. CAT scan preliminary report showing possible pancreatitis, getting aggressive fluids and we will consult GI and follow the final report of the CAT scan. 6. Peripheral vascular disease, as above possibly chronic.. We will consult vascular surgery while patient in the hospital for further recommendations. 7. History of asthma, chronic obstructive pulmonary disease. Continue his home medication. 8. History of hypertension. We will hold his enalapril and Lopressor as blood pressure is on lower side and was placed on IV Lopressor p.r.n. for now and restart when blood pressure comes up. 9. History of diabetes. We will hold his glipizide. Placed on insulin sliding scale. 10. History of mouth cancer status post radiation, currently on G-tube. We will consult nutrition for his tube feedings. 11. Benign prostatic hypertrophy: Continue his home medications. 12. Thrombocytopenia, platelets 93, were normal at 142 on 11/2018 could be from sickness. We will follow the repeat labs. 13. Mild elevation of troponin. We will follow serial enzymes. 14. Deep venous thrombosis prophylaxis, placed on Lovenox. If the platelets further drop, we will stop Lovenox. Level 1 full code. PT and OT prior to discharge. Social service to help with discharge planning. Addendum CTA chest showed lung mass, possible aspiration. Abx changed to Zosyn. Pulmonary consulted. BRANDIE
[2020-04-18] MEDS: INSULIN ASPART 100 UNITS/ML 3 ML PEN SC SCH ×3 (09:45→18:45)
[2020-04-18] MEDS ORDERED: ACETAMINOPHEN SUSP 160 MG/5 ML BTL PO PRN (09:52)
[2020-04-18] MEDS ORDERED: ACETAMINOPHEN SUSP 325 MG/10.15 ML UDC PEG PRN (09:54)
[2020-04-18] MEDS: FINASTERIDE 5 MG TAB PO SCH (10:02)
[2020-04-18] MEDS: SODIUM CHLORIDE 0.9% 1000ML 1,000 ML IV SCH ×3 (10:19→20:37)
[2020-04-18] MEDS: ASPIRIN 81 MG CHEW PEG SCH (10:24)
[2020-04-18] MEDS: dexAMETHasone 6 MG in SYRINGE 0 ML IV SCH (10:24)
[2020-04-18] MEDS: ENOXAPARIN INJ 40 MG/0.4 ML SYR SQ SCH (10:24)
[2020-04-18] MEDS: CHOLECALCIFEROL 1,000 UNITS 25 MCG TAB PEG SCH (10:25)
--- NOTE | 2020-04-18 12:12 | Hospitalist Progress Note ---
Date of Service April 18, 2020 Assessment & Plan (1) COVID-19: (2) COPD (chronic obstructive pulmonary disease): (3) History of tobacco abuse: (4) History of head and neck cancer: (5) Acute respiratory failure with hypoxia: Sepsis Patient did meet sepsis criteria on admission with tachycardia and respiratory rate above 20 Lactate was 2.3 now resolved to 1.4 Procalcitonin was 1.9 Possible sources include respiratory [COVID 19 infection] and urinary tract Continue oxygen supplementation. Continue incentive spirometry Continue Zosyn empirically for now Continue dexamethasone 6 mg daily Reservations And Ticketing Agent recommendations appreciated Continue nebs We will wean oxygen as tolerated and assess requirement when ready for discharge CT of the lung showed right middle lobe lung mass and right upper lobe lung nodules with paratracheal and hilar lymphadenopathy which is suspicious for meta static disease considering history versus primary pulmonary malignancy. This can be worked up outpatient after recovery of acute illness. We will need outpatient PET/CT with MRI of the brain as well as PFTs. (6) INNA (acute kidney injury): Cr 1.62 (was 1.1 in 2019) Likely INNA, prerenal Will reduce IVF from 200cc/h to 100cc/h Continue tube flushes + tube feeding Will monitor Cr Avoid nephrotoxins (7) Hypotension: Hypotension resolved. Monitor Hold all antihypertensive for now (8) Uses feeding tube: Resume tube feeding Patient does look cachectic with bony prominence and muscle wasting with features of moderate to severe malnutrition. He does denies any weight loss Nutrition consult Attempts to reach children to determine patient's home tube feeding regimen were unanswered (9) Diabetes: Monitor blood glucose Manage with insulin regimen per protocol (10) Acute UTI (urinary tract infection): Urinalysis showing positive nitrite/esterase/pyuria Continue antibiotics (11) Elevated troponin: Troponin is elevated but flat Patient denies chest pain Continue aspirin Continue telemetry monitoring DVT prophylaxis-Lovenox Admission and Anticipated Discharge Date Admission Date: April 18, 2020 Subjective Patient seen and examined. Reported that he has worsening cough in the past 2 weeks. Denied any chest pain, nausea, vomiting Denies any abdominal pain, nausea, diarrhea Physical Exam Constitutional: + cachectic Eyes: Opacification of left cornea/sclera [chronic] ENMT: external ear and nose normal, oropharynx normal Respiratory: normal respiratory effort; no respiratory distress Diminished breath sounds globally Cardiovascular: Rate/Rhythm: regular rate and regular rhythm S1-S2 no pedal edema Gastrointestinal (Abdomen): normal bowel sounds, soft, nontender, no hepatosplenomegaly PEG tube in situ Musculoskeletal: No pedal edema Neurologic: PERRL, EOMI, accommodation nl, no face palsy, no dysarthria Psychiatric: A+Ox3, euthymic affect Results & Data Results & Data ([facility]) Vital Signs (Past 12 Hours) Vital Signs Temp Pulse Resp BP BP Pulse Ox 04/18/20 07:18 36.4 C L 20 109/65 91 04/18/20 06:00 88 19 113/52 L 93 04/18/20 05:30 88 21 97/55 L 92 04/18/20 05:00 87 22 86/54 L 100 04/18/20 04:30 89 18 95/54 L 100 04/18/20 04:00 90 21 106/56 L 93 04/18/20 03:30 96 H 22 103/58 L 91 04/18/20 03:00 94 H 24 104/54 L 93 04/18/20 02:46 96 H 20 113/58 L 92 04/18/20 02:00 97 H 22 102/53 L 93 04/18/20 01:30 98 H 13 94/53 L 92 04/18/20 01:20 101 H 20 99/54 L 94 04/18/20 00:58 36.6 C 110 H 18 91/60 L 92 Laboratory Results Laboratory Results - last 24 hr 04/18/20 04/18/20 04/18/20 01:11 01:11 01:11 WBC 8.61 RBC 4.54 L Hgb 14.1 Hct 41.9 L MCV 92.3 MCH 31.1 MCHC 33.7 RDW Std Deviation 51.0 H RDW Coeff of Jose R 15.0 H Plt Count 93 L MPV 11.9 H Neutrophils % (Manual) 74.0 Lymphocytes % (Manual) 5.4 Monocytes % (Manual) 3.6 Neutrophils # (Manual) 6.37 Total Absolute Neuts 6.37 Lymphocytes # (Manual) 0.46 L Total Abs Lymphocytes 1.93 Monocytes # (Manual) 0.31 Large Granular Lymphs 17.0 # Lrg Granular Lymphs 1.46 RBC Morphology Unremarkable PT INR Sodium Potassium Chloride Carbon Dioxide Anion Gap BUN Creatinine Est Cr Clr Drug Dosing Est GFR ( Amer) Est GFR (Non-Af Amer) BUN/Creatinine Ratio Glucose POC Glucose Lactate 2.3 H* Calcium Magnesium Total Bilirubin AST ALT Alkaline Phosphatase Troponin I NT-Pro-B Natriuret Pep Total Protein Albumin Globulin Albumin/Globulin Ratio Lipase Procalcitonin TSH Urine Color Urine Appearance Urine pH Ur Specific [place] Urine Protein Urine Glucose (UA) Urine Ketones Urine Blood Urine Nitrite Urine Bilirubin Urine Urobilinogen Ur Leukocyte Esterase Urine WBC (Auto) Urine RBC (Auto) U Hyaline Cast (Auto) U Epithel Cells (Auto) Urine Bacteria (Auto) COVID-19 Eval Order SARS-CoV-2, RNA, NAAT Blood Type A Positive Antibody Screen NEGATIVE 04/18/20 04/18/20 04/18/20 01:11 01:11 01:12 WBC RBC Hgb Hct MCV MCH MCHC RDW Std Deviation RDW Coeff of Jose R Plt Count MPV Neutrophils % (Manual) Lymphocytes % (Manual) Monocytes % (Manual) Neutrophils # (Manual) Total Absolute Neuts Lymphocytes # (Manual) Total Abs Lymphocytes Monocytes # (Manual) Large Granular Lymphs # Lrg Granular Lymphs RBC Morphology PT 10.7 INR 1.1 Sodium 145 Potassium 3.5 Chloride 111 H Carbon Dioxide 27 Anion Gap 7.0 BUN 47 H Creatinine 1.62 H Est Cr Clr Drug Dosing 34.7 Est GFR ( Amer) 47.1 Est GFR (Non-Af Amer) 40.6 BUN/Creatinine Ratio 29.1 H Glucose 264 H POC Glucose Lactate Calcium 8.0 L Magnesium 2.2 Total Bilirubin 0.7 AST 41 H ALT 29 Alkaline Phosphatase 86 Troponin I 0.067 H* NT-Pro-B Natriuret Pep 631 Total Protein 6.7 Albumin 2.4 L Globulin 4.3 H Albumin/Globulin Ratio 0.6 L Lipase 448 H Procalcitonin 1.39 H TSH 0.692 Urine Color Urine Appearance Urine pH Ur Specific [place] Urine Protein Urine Glucose (UA) Urine Ketones Urine Blood Urine Nitrite Urine Bilirubin Urine Urobilinogen Ur Leukocyte Esterase Urine WBC (Auto) Urine RBC (Auto) U Hyaline Cast (Auto) U Epithel Cells (Auto) Urine Bacteria (Auto) COVID-19 Eval Order SARS-CoV-2, RNA, NAAT Blood Type Antibody Screen 04/18/20 04/18/20 04/18/20 03:30 04:10 04:12 WBC RBC Hgb Hct MCV MCH MCHC RDW Std Deviation RDW Coeff of Jose R Plt Count MPV Neutrophils % (Manual) Lymphocytes % (Manual) Monocytes % (Manual) Neutrophils # (Manual) Total Absolute Neuts Lymphocytes # (Manual) Total Abs Lymphocytes Monocytes # (Manual) Large Granular Lymphs # Lrg Granular Lymphs RBC Morphology PT INR Sodium Potassium Chloride Carbon Dioxide Anion Gap BUN Creatinine Est Cr Clr Drug Dosing Est GFR ( Amer) Est GFR (Non-Af Amer) BUN/Creatinine Ratio Glucose POC Glucose Lactate 1.4 Calcium Magnesium Total Bilirubin AST ALT Alkaline Phosphatase Troponin I NT-Pro-B Natriuret Pep Total Protein Albumin Globulin Albumin/Globulin Ratio Lipase Procalcitonin TSH Urine Color Yellow Urine Appearance Clear Urine pH 5.0 Ur Specific [place] > 1.045 H Urine Protein 1+ H Urine Glucose (UA) Negative Urine Ketones Negative Urine Blood 2+ H Urine Nitrite Positive A Urine Bilirubin Negative Urine Urobilinogen Negative Ur Leukocyte Esterase 1+ H Urine WBC (Auto) >30 H Urine RBC (Auto) 0-4 U Hyaline Cast (Auto) 5-10 H U Epithel Cells (Auto) 0-5 Urine Bacteria (Auto) 4+ H COVID-19 Eval [facility] SARS-CoV-2, RNA, NAAT Blood Type Antibody Screen 04/18/20 04/18/20 04/18/20 04:12 08:05 08:25 WBC RBC Hgb Hct MCV MCH MCHC RDW Std Deviation RDW Coeff of Jose R Plt Count MPV Neutrophils % (Manual) Lymphocytes % (Manual) Monocytes % (Manual) Neutrophils # (Manual) Total Absolute Neuts Lymphocytes # (Manual) Total Abs Lymphocytes Monocytes # (Manual) Large Granular Lymphs # Lrg Granular Lymphs RBC Morphology PT INR Sodium Potassium Chloride Carbon Dioxide Anion Gap BUN Creatinine Est Cr Clr Drug Dosing Est GFR ( Amer) Est GFR (Non-Af Amer) BUN/Creatinine Ratio Glucose POC Glucose 165 H Lactate Calcium Magnesium Total Bilirubin AST ALT Alkaline Phosphatase Troponin I 0.069 H* NT-Pro-B Natriuret Pep Total Protein Albumin Globulin Albumin/Globulin Ratio Lipase Procalcitonin TSH Urine Color Urine Appearance Urine pH Ur Specific [place] Urine Protein Urine Glucose (UA) Urine Ketones Urine Blood Urine Nitrite Urine Bilirubin Urine Urobilinogen Ur Leukocyte Esterase Urine WBC (Auto) Urine RBC (Auto) U Hyaline Cast (Auto) U Epithel Cells (Auto) Urine Bacteria (Auto) COVID-19 Eval Order SARS-CoV-2, RNA, NAAT POSITIVE A* Blood Type Antibody Screen 04/18/20 04/18/20 12:07 13:56 WBC RBC Hgb Hct MCV MCH MCHC RDW Std Deviation RDW Coeff of Jose R Plt Count MPV Neutrophils % (Manual) Lymphocytes % (Manual) Monocytes % (Manual) Neutrophils # (Manual) Total Absolute Neuts Lymphocytes # (Manual) Total Abs Lymphocytes Monocytes # (Manual) Large Granular Lymphs # Lrg Granular Lymphs RBC Morphology PT INR Sodium Potassium Chloride Carbon Dioxide Anion Gap BUN Creatinine Est Cr Clr Drug Dosing Est GFR ( Amer) Est GFR (Non-Af Amer) BUN/Creatinine Ratio Glucose POC Glucose 119 H Lactate Calcium Magnesium Total Bilirubin AST ALT Alkaline Phosphatase Troponin I 0.071 H* NT-Pro-B Natriuret Pep Total Protein Albumin Globulin Albumin/Globulin Ratio Lipase Procalcitonin TSH Urine Color Urine Appearance Urine pH Ur Specific [place] Urine Protein Urine Glucose (UA) Urine Ketones Urine Blood Urine Nitrite Urine Bilirubin Urine Urobilinogen Ur Leukocyte Esterase Urine WBC (Auto) Urine RBC (Auto) U Hyaline Cast (Auto) U Epithel Cells (Auto) Urine Bacteria (Auto) COVID-19 Eval Order SARS-CoV-2, RNA, NAAT Blood Type Antibody Screen (1) COPD (chronic obstructive pulmonary disease) COPD type: unspecified COPD Qualified Code(s): J44.9 - Chronic obstructive pulmonary disease, unspecified (2) Hypotension Hypotension type: unspecified hypotension type Qualified Code(s): I95.9 - Hypotension, unspecified
--- NOTE | 2020-04-18 13:53 | Pulmonary Consultation ---
Date of Consultation April 18, 2020 Assessment & Plan (1) Lung nodules: 75-year-old -[place] male with a past medical history of head and neck cancer status post chemoradiation in 2003, tobacco abuse and likely COPD presenting to the hospital due to confusion, hypotension, COVID-19 infection and the complicated urinary tract infection. The right middle lobe lung mass, right upper lobe lung nodule and paratracheal/right hilar lymphadenopathy are concerning for malignancy and it is unclear whether this represents metastatic disease versus primary pulmonary malignancy. Given his COVID-19 infection and acutely septic presentation, I would recommend bronchoscopy with sampling of the mediastinal lymphadenopathy as an outpatient rather than in the hospital. I recommend allowing him time to recover from his acute illness. He would benefit from an outpatient PET/CT along with an MRI of his brain to evaluate for further metastatic disease. PFTs as an outpatient would be beneficial as well. Would recommend evaluating him for home oxygen prior to discharge. I have placed an order for Anoro Ellipta which is an inhaler that he can be discharged on when he goes home. Recommend treating for 10 days with Decadron as you are doing for his COPD exacerbation/COVID-19 infection. Thank you for allowing us to participate in the care of this patient. Please call us with questions. (2) History of head and neck cancer: (3) History of tobacco abuse: (4) COPD (chronic obstructive pulmonary disease): COPD type: unspecified COPD Qualified Code(s): J44.9 - Chronic obstructive pulmonary disease, unspecified (5) Acute respiratory failure with hypoxia: (6) Acute UTI (urinary tract infection): History of Present Illness Reason for Consultation: Lung mass Requesting Physician: Dr. Brock Attending Physician: Lorin Estevez MD History of Present Illness 75-year-old -[place] male who lives with his daughter and has a history of COPD, tobacco abuse, head and neck cancer, G-tube placement and diabetes presenting to the hospital due to lethargy and shaking. Patient notes that he is not certain why he was in the hospital, but says that his daughter wanted him to come to the emergency department. He was found to be hypotensive on arrival with systolic blood pressures in the 70s. He received 500 mL fluid bolus. He was also found to have a urinary tract infection and COVID-19 on presentation. Lipase was elevated on presentation and a GI consultation was placed. GI felt the elevated lipase was secondary to Covid. Patient describes that he has had a cough for the last 2 weeks that has been worsening. He denies any hemoptysis. He says that his appetite has been the same as usual. He denies any loss of weight. No fevers or chills. He does note increasing shortness of breath. He walks at home with the aid of a walker. He quit smoking roughly 20 years ago. He smoked 1 pack/day for 30 to 40 years. He says that he worked for [employer] previously. He describes that he underwent chemo and radiation along with mouth surgery for head and neck cancer. He notes that he was diagnosed with this in 2003. A CTA of his chest was completed this morning which demonstrated right paratracheal and right hilar adenopathy. And 2.9 cm irregularly central right middle lobe nodule and 1.2 cm lobulated nodule was noted in the right upper lobe concerning for metastatic focus. Allergies Allergy/AdvReac Type Severity Reaction Status Date / Time No Known Allergies Allergy Verified 04/18/20 01:52 Home Medications Medication Instructions Recorded Confirmed Type amlodipine 10 mg PO QAM 05/18/18 04/18/20 History aspirin 81 mg PO QAM 05/18/18 04/18/20 History cholecalciferol (vitamin D3) 2,000 unit PO QAM 05/18/18 04/18/20 History [Vitamin D3] enalapril maleate 10 mg PO BID 05/18/18 04/18/20 History glipizide 5 mg PO DAILY 05/18/18 04/18/20 History metoprolol tartrate 50 mg PO BID 05/18/18 04/18/20 History tamsulosin 0.4 mg PO HS 05/18/18 04/18/20 History albuterol sulfate 2 puff INHALATION QID PRN 05/27/19 04/18/20 History albuterol sulfate 2.5 mg INH Q6H PRN #180 ml 05/27/19 04/18/20 Rx finasteride 5 mg PO DAILY 04/18/20 04/18/20 History Patient History Medical History COPD (chronic obstructive pulmonary disease) Diabetes Family history non-contributory Hypertension Tongue cancer Surgical History No pertinent past surgical history Family History Other Family history non-contributory Social History Smoking Status: Never smoker Tobacco Type: Cigarettes Hx Alcohol Use: No Hx Substance Use: No Preferred Language: Chinese Communication Ability: Effective Propulsion Engineer Required: No Beliefs That Will Affect Care: None Current Living Situation: Family Feels Safe at Home: Yes Safety Concerns: Feels Safe At This Time Assistive Devices: Cane, Glasses and Walker Review of Systems Review of Systems: All systems reviewed & are unremarkable except as noted in HPI & below Physical Exam Constitutional: + cachectic, + physical limitations and + frail appearing Eyes: Left eye blindness. ENMT: Ears: + hearing impairment Mallampati Class: II Neck: trachea midline, no thyromegaly Respiratory: + tachypneic Prolonged phase of exhalation bilaterally. Diminished lung sounds bilaterally. Cardiovascular: RRR, no murmur, no edema Gastrointestinal (Abdomen): normal bowel sounds, soft, nontender, no hepatosplenomegaly Musculoskeletal: no cyanosis or clubbing, extremities motor strength 5/5 Skin: no rashes, warm and dry Neurologic: No obvious focal deficits. Psychiatric: A+Ox3, euthymic affect Results & Data Results & Data ([facility]) Vital Signs (Past 12 Hours) Vital Signs Temp Pulse Pulse Resp BP BP Pulse Ox 04/18/20 12:39 98.1 F 91 H 18 107/61 92 04/18/20 07:18 97.5 F L 20 109/65 91 04/18/20 06:00 88 19 113/52 L 93 04/18/20 05:30 88 21 97/55 L 92 04/18/20 05:00 87 22 86/54 L 100 04/18/20 04:30 89 18 95/54 L 100 04/18/20 04:00 90 21 106/56 L 93 04/18/20 03:30 96 H 22 103/58 L 91 04/18/20 03:00 94 H 24 104/54 L 93 04/18/20 02:46 96 H 20 113/58 L 92 04/18/20 02:00 97 H 22 102/53 L 93 I reviewed his laboratory data, vital signs and imaging PG Care Time/CCT Total # of Minutes Spent Total Time Spent with Patient: Total time spent is greater than 50% in coordination of care (as documented) at patient's floor/unit and/or counseling patient: Coding Level of Care Code 09806 Inpt Consult Level 5 Diagnoses Lung nodules R91.8 History of head and neck cancer Z85.89 History of tobacco abuse Z87.891 COPD (chronic obstructive pulmonary disease) J44.9 COPD type: unspecified COPD Acute respiratory failure with hypoxia J96.01 Acute UTI (urinary tract infection) N39.0
[2020-04-18] MEDS ORDERED: TUBE FEEDING WATER FLUSH GT SCH (14:45)
[2020-04-18] MEDS: TUBE FEEDING WATER FLUSH GT SCH ×2 (15:07→20:38)
[2020-04-18] MEDS: FIBERSOURCE HN 1.2 CAL 1000 ML BAG GT SCH (15:08)
[2020-04-18] MEDS: PIPERACILLIN/TAZOBACTAM 3.375 GM in DEXTROSE 5% 100 ML IV SCH ×2 (15:08→20:36)
[2020-04-19] MEDS: TUBE FEEDING WATER FLUSH GT SCH ×3 (04:26→14:06)
--- NOTE | 2020-04-19 05:08 | Electrocardiogram Report ---
Test Reason : Blood Pressure : / mmHG Vent. Rate : 101 BPM Atrial Rate : 101 BPM P-R Int : 118 ms QRS Dur : 078 ms QT Int : 324 ms P-R-T Axes : 053 057 079 degrees QTc Int : 420 ms Sinus tachycardia with Premature atrial complexes Low voltage QRS Cannot rule out Anterior infarct , age undetermined Abnormal ECG No previous ECGs available Confirmed by Germán Echeverria ([id number]) on 04/19/2020 5:08:35 AM Referred By: REFERRED SELF Confirmed By:Germán Echeverria
[2020-04-19] MEDS ORDERED: cefTRIAXone SODIUM 1,000 MG in DEXTROSE 5% 50 ML IV SCH (06:00)
[2020-04-19 06:06] LABS: Estimated Average Glucose 148 mg/dl; Hemoglobin A1C 6.8 % (4.5-5.6)
[2020-04-19 06:10] LABS: Hematocrit (blood only) 41.8 % (42-52); Hemoglobin 14.1 g/dL (14.0-18.0); Immature Granulocytes # (auto) 0.02 K/uL (0.00-0.02); Immature Granulocytes % (auto) 0.3 %; Lymphocytes # (auto) 1.02 K/uL (1.2-3.4); Lymphocytes % (auto) 14.8 %; Mean Corpuscular Hemoglobin 31.3 pg (25-34); Mean Corpuscular Hgb Conc 33.7 g/dL (32-36); Mean Corpuscular Volume 92.9 fL (80-100); Monocytes # (auto) 0.32 K/uL (0.11-0.59); Monocytes % (auto) 4.7 %; Neutrophils # (auto) 5.52 K/uL (1.4-6.5); Neutrophils % (auto) 80.2 %; Platelet Count 90 K/uL (130-400); Platelet Estimate Decreased (Normal); RDW Coefficient of Variation 14.8 % (11.5-14.5); RDW Standard Deviation 50.5 fL (36.4-46.3); White Blood Count 6.88 K/uL (4.8-10.8)
[2020-04-19 06:12] LABS: BUN Creatinine Ratio 24.5 (10-20); Calcium 7.9 mg/dl (8.5-10.1); Creatinine Clr Calc Pharmacy 53.7 ml/min; Est GFR (African American) 88.6; Est GFR (Non-African American) 76.5; Magnesium 1.9 mg/dl (1.8-2.4); Potassium 3.6 mmol/L (3.5-5.1)
[2020-04-19] MEDS: PIPERACILLIN/TAZOBACTAM 3.375 GM in DEXTROSE 5% 100 ML IV SCH ×2 (06:18→13:59)
[2020-04-19] MEDS ORDERED: INSULIN ASPART 100 UNITS/ML 3 ML PEN SC STA (06:19)
[2020-04-19 07:07] LABS: Beta-Hydroxybutyrate 1.26 mg/dl (0.2-2.81)
[2020-04-19] MEDS: UMECLIDINIUM/VILANTEROL 62.5/25MCG 7 PUFFS/INHALER INH SCH (08:11)
[2020-04-19] MEDS: ASPIRIN 81 MG CHEW PEG SCH (08:13)
[2020-04-19] MEDS: CHOLECALCIFEROL 1,000 UNITS 25 MCG TAB PEG SCH (08:13)
[2020-04-19] MEDS: ENOXAPARIN INJ 40 MG/0.4 ML SYR SQ SCH (08:14)
[2020-04-19] MEDS: dexAMETHasone 6 MG in SYRINGE 0 ML IV SCH (08:19)
[2020-04-19] MEDS: SODIUM CHLORIDE 0.9% 1000ML 1,000 ML IV SCH (08:20)
[2020-04-19] MEDS: INSULIN GLARGINE SOLOSTAR 100 UNITS/ML 3 ML PEN SC SCH ×2 (09:00→10:59)
--- NOTE | 2020-04-19 10:02 | Hospitalist Progress Note ---
Date of Service April 19, 2020 Assessment & Plan (1) COVID-19: (2) COPD (chronic obstructive pulmonary disease): (3) History of tobacco abuse: (4) History of head and neck cancer: (5) Acute respiratory failure with hypoxia: Sepsis Patient did meet sepsis criteria on admission with tachycardia and respiratory rate above 20 Lactate was 2.3 now resolved to 1.4 Procalcitonin was 1.9 Possible sources include respiratory [COVID 19 infection] and urinary tract Continue oxygen supplementation. Wean as tolerated Continue incentive spirometry Continue Zosyn empirically for now. Blood cultures negative. Urine culture growing GNR. Will de-escalate appropriately Continue dexamethasone 6 mg daily Energy Engineer recommendations appreciated Continue nebs CT of the lung showed right middle lobe lung mass and right upper lobe lung nodules with paratracheal and hilar lymphadenopathy which is suspicious for metastatic disease considering history versus primary pulmonary malignancy. This can be worked up outpatient after recovery of acute illness. We will need outpatient PET/CT with MRI of the brain as well as PFTs. (6) INNA (acute kidney injury): Cr 1.62 (was 1.1 in 2019) Likely INNA, prerenal INNA resolved. Creatinine 0.96 today Discontinue IV fluids Continue tube flushes + tube feeding Avoid nephrotoxins (7) Hypotension: Hypotension resolved. Blood pressure still running low normal Hold all antihypertensive for now (8) Uses feeding tube: Continue tube feeding Patient does look cachectic with bony prominence and muscle wasting with features of moderate to severe malnutrition. 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 Patient will need follow-up with vascular surgery outpatient after recovery of acute illness further evaluation and management of vasculopathies DVT prophylaxis-Lovenox Admission and Anticipated Discharge Date Admission Date: April 18, 2020 Subjective Patient seen and examined. Reports feeling better Complains only of cough productive of occasional sputum No fevers, chills, nausea vomiting Still requiring oxygen via nasal cannula. Denies chest pain Denies abdominal pain, diarrhea or constipation Physical Exam Constitutional: + cachectic ENMT: external ear and nose normal, oropharynx normal Respiratory: normal respiratory effort; no respiratory distress Diminished breath sounds bilaterally Cardiovascular: Rate/Rhythm: regular rate and regular rhythm S1-S2 Gastrointestinal (Abdomen): normal bowel sounds, soft, nontender, no hepatosplenomegaly Musculoskeletal: No pedal edema Neurologic: PERRL, EOMI, accommodation nl, no face palsy, no dysarthria Psychiatric: A+Ox3, euthymic affect Results & Data Results & Data ([facility]) Vital Signs (Past 12 Hours) Vital Signs Temp Pulse Pulse Resp BP Pulse Ox 04/19/20 07:56 36.5 C 89 18 106/62 93 04/19/20 03:57 36.6 C 83 16 96/66 L 96 04/19/20 00:30 78 04/18/20 23:20 36.8 C 81 18 98/60 L 91 Laboratory Results Laboratory Results - last 24 hr 04/18/20 04/18/20 04/18/20 08:25 12:07 13:56 WBC RBC Hgb Hct MCV MCH MCHC RDW Std Deviation RDW Coeff of Jose R Plt Count MPV Immature Gran % (Auto) Neut % (Auto) Lymph % (Auto) Saunders % (Auto) Eos % (Auto) Baso % (Auto) Neut # (Auto) Lymph # (Auto) Saunders # (Auto) Eos # (Auto) Baso # (Auto) Immature Gran # (Auto) Platelet Estimate Sodium Potassium Chloride Carbon Dioxide Anion Gap BUN Creatinine Est Cr Clr Drug Dosing Est GFR ( Amer) Est GFR (Non-Af Amer) BUN/Creatinine Ratio Glucose POC Glucose 119 H Estimat Average Glucose Hemoglobin A1c Calcium Magnesium Troponin I 0.069 H* 0.071 H* Lipase 25-OH Vitamin D Total Beta-Hydroxybutyric Acd 04/18/20 04/18/20 04/18/20 18:05 19:16 23:53 WBC RBC Hgb Hct MCV MCH MCHC RDW Std Deviation RDW Coeff of Jose R Plt Count MPV Immature Gran % (Auto) Neut % (Auto) Lymph % (Auto) Saunders % (Auto) Eos % (Auto) Baso % (Auto) Neut # (Auto) Lymph # (Auto) Saunders # (Auto) Eos # (Auto) Baso # (Auto) Immature Gran # (Auto) Platelet Estimate Sodium Potassium Chloride Carbon Dioxide Anion Gap BUN Creatinine Est Cr Clr Drug Dosing Est GFR ( Amer) Est GFR (Non-Af Amer) BUN/Creatinine Ratio Glucose POC Glucose 222 H 280 H Estimat Average Glucose Hemoglobin A1c Calcium Magnesium Troponin I 0.053 H* Lipase 25-OH Vitamin D Total Beta-Hydroxybutyric Acd 04/19/20 04/19/20 04/19/20 05:30 05:30 05:30 WBC 6.88 RBC 4.50 L Hgb 14.1 Hct 41.8 L MCV 92.9 MCH 31.3 MCHC 33.7 RDW Std Deviation 50.5 H RDW Coeff of Jose R 14.8 H Plt Count 90 L MPV 12.0 H Immature Gran % (Auto) 0.3 Neut % (Auto) 80.2 Lymph % (Auto) 14.8 Saunders % (Auto) 4.7 Eos % (Auto) 0.0 Baso % (Auto) 0.0 Neut # (Auto) 5.52 Lymph # (Auto) 1.02 L Saunders # (Auto) 0.32 Eos # (Auto) 0.00 Baso # (Auto) 0.00 Immature Gran # (Auto) 0.02 Platelet Estimate Decreased L Sodium 142 Potassium 3.6 Chloride 109 H Carbon Dioxide 28 Anion Gap 5.0 BUN 24 H Creatinine 0.96 D Est Cr Clr Drug Dosing 53.7 Est GFR ( Amer) 88.6 Est GFR (Non-Af Amer) 76.5 BUN/Creatinine Ratio 24.5 H Glucose 319 H* POC Glucose Estimat Average Glucose 148 Hemoglobin A1c 6.8 H Calcium 7.9 L Magnesium 1.9 Troponin I Lipase 111 25-OH Vitamin D Total Beta-Hydroxybutyric Acd 1.26 04/19/20 05:30 WBC RBC Hgb Hct MCV MCH MCHC RDW Std Deviation RDW Coeff of Jose R Plt Count MPV Immature Gran % (Auto) Neut % (Auto) Lymph % (Auto) Saunders % (Auto) Eos % (Auto) Baso % (Auto) Neut # (Auto) Lymph # (Auto) Saunders # (Auto) Eos # (Auto) Baso # (Auto) Immature Gran # (Auto) Platelet Estimate Sodium Potassium Chloride Carbon Dioxide Anion Gap BUN Creatinine Est Cr Clr Drug Dosing Est GFR ( Amer) Est GFR (Non-Af Amer) BUN/Creatinine Ratio Glucose POC Glucose Estimat Average Glucose Hemoglobin A1c Calcium Magnesium Troponin I Lipase 25-OH Vitamin D Total 40.3 Beta-Hydroxybutyric Acd (1) COPD (chronic obstructive pulmonary disease) COPD type: unspecified COPD Qualified Code(s): J44.9 - Chronic obstructive pulmonary disease, unspecified (2) Hypotension Hypotension type: unspecified hypotension type Qualified Code(s): I95.9 - Hypotension, unspecified
[2020-04-19] MEDS: FIBERSOURCE HN 1.2 CAL 1000 ML BAG GT SCH (12:24)
[2020-04-19] MEDS: INSULIN ASPART 100 UNITS/ML 3 ML PEN SC SCH ×2 (12:46→18:19)
[2020-04-19] MEDS ORDERED: INSULIN ASPART 100 UNITS/ML 3 ML PEN SC SCH (18:30)
[2020-04-20] MEDS: PIPERACILLIN/TAZOBACTAM 3.375 GM in DEXTROSE 5% 100 ML IV SCH ×2 (00:08→06:02)
[2020-04-20] MEDS: TUBE FEEDING WATER FLUSH GT SCH ×5 (00:08→20:05)
[2020-04-20] MEDS: INSULIN ASPART 100 UNITS/ML 3 ML PEN SC SCH ×4 (00:09→18:25)
[2020-04-20 06:55] LABS: Hemoglobin 15.3 g/dL (14.0-18.0); Mean Corpuscular Hemoglobin 30.7 pg (25-34); Mean Corpuscular Hgb Conc 33.3 g/dL (32-36); Mean Corpuscular Volume 92.4 fL (80-100); Mean Platelet Volume 12.7 fL (7.4-10.4); Platelet Count 115 K/uL (130-400); Platelet Estimate Decreased (Normal); RDW Coefficient of Variation 14.5 % (11.5-14.5); RDW Standard Deviation 48.7 fL (36.4-46.3); Red Blood Count 4.98 M/uL (4.7-6.1); White Blood Count 13.49 K/uL (4.8-10.8)
[2020-04-20 07:09] LABS: BUN Creatinine Ratio 27.1 (10-20); Calcium 8.6 mg/dl (8.5-10.1); Creatinine Clr Calc Pharmacy 51.4 ml/min; Est GFR (African American) 86.5; Est GFR (Non-African American) 74.6; Phosphorus 2.9 mg/dl (2.5-4.9); Potassium 3.2 mmol/L (3.5-5.1)
[2020-04-20] MEDS: ASPIRIN 81 MG CHEW PEG SCH (08:45)
[2020-04-20] MEDS: CHOLECALCIFEROL 1,000 UNITS 25 MCG TAB PEG SCH (08:45)
[2020-04-20] MEDS: ENOXAPARIN INJ 40 MG/0.4 ML SYR SQ SCH (08:47)
[2020-04-20] MEDS: UMECLIDINIUM/VILANTEROL 62.5/25MCG 7 PUFFS/INHALER INH SCH (08:48)
[2020-04-20] MEDS: dexAMETHasone 6 MG in SYRINGE 0 ML IV SCH (08:48)
[2020-04-20] MEDS: POTASSIUM CHLORIDE / WTR 10 MEQ/100 ML PLCT IV SCH ×2 (08:54→10:14)
--- NOTE | 2020-04-20 08:55 | Hospitalist Progress Note ---
Date of Service April 20, 2020 Assessment & Plan (1) COVID-19: (2) COPD (chronic obstructive pulmonary disease): (3) History of tobacco abuse: (4) History of head and neck cancer: (5) Acute respiratory failure with hypoxia: Sepsis Patient did meet sepsis criteria on admission with tachycardia and respiratory rate above 20 Lactate was 2.3 now resolved to 1.4 Procalcitonin was 1.9 Possible sources include respiratory [COVID 19 infection] and urinary tract Taken off oxygen this morning Monitor Will need ambulatory pulse ox prior to discharge Blood cultures negative. Urine culture growing Klebsiella. Antibiotic deescalated to IV ceftriaxone Continue dexamethasone 6 mg daily Pricing Supervisor recommendations appreciated Continue nebs CT of the lung showed right middle lobe lung mass and right upper lobe lung nodules with paratracheal and hilar lymphadenopathy which is suspicious for metastatic disease considering history versus primary pulmonary malignancy. This can be worked up outpatient after recovery of acute illness. We will need outpatient PET/CT with MRI of the brain as well as PFTs. Discussed findings of CT lung, abdominal/Pelvis with patient's daughter yesterday about the need for outpatient follow-up with pulmonology and vascular (6) INNA (acute kidney injury): Cr 1.62 (was 1.1 in 2019) Likely INNA, prerenal INNA resolved. Creatinine 0.98 today IV fluids had been discontinued Continue tube flushes + tube feeding Avoid nephrotoxins Hypokalemic today with potassium of 3.2. Replete and monitor (7) Hypotension: Hypotension resolved. Metoprolol resumed at lower dose of 25mg bid Continue to hold amlodipine (8) Uses feeding tube: Continue tube feeding Patient does look cachectic with bony prominence and muscle wasting with fe atures of moderate to severe malnutrition. He does deny any recent weight loss Nutrition consult appreciated (9) Diabetes: Monitor blood glucose Lantus increased to 15U daily for better control since patient is on dexamethasone Manage with insulin regimen per protocol (10) Acute UTI (urinary tract infection): Urinalysis showing positive nitrite/esterase/pyuria Urine culture growing Klebsiella Antibiotics deescalated to ceftriaxone (11) Elevated troponin: Troponin is elevated but flat Patient denies chest pain Continue aspirin Continue telemetry monitoring Thrombocytopenia Plt stable in [address] abdomen and pelvis on admission showed 32 mm infrarenal abdominal aortic aneurysm, 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 Patient will need follow-up with vascular surgery outpatient after recovery of acute illness further evaluation and management of vasculopathies DVT prophylaxis-Lovenox Get PT/OT eval Admission and Anticipated Discharge Date Admission Date: April 18, 2020 Subjective Patient seen and examined. Still reports cough but states he is feeling better. Denies any chest pain, shortness of breath Denies any nausea, vomiting or diarrhea Physical Exam Constitutional: + well hydrated and + cachectic; no acute distress Eyes: Opacification of left cornea/sclera [chronic] ENMT: external ear and nose normal, oropharynx normal Respiratory: normal respiratory effort; no respiratory distress Diminished breath sounds Cardiovascular: Rate/Rhythm: regular rate and regular rhythm S1-S2 no pedal edema Gastrointestinal (Abdomen): normal bowel sounds, soft, nontender, no hepatosplenomegaly Neurologic: PERRL, EOMI, accommodation nl, no face palsy, no dysarthria Psychiatric: A+Ox3, euthymic affect Genitourinary: no CVA tenderness Results & Data Results & Data ([facility]) Vital Signs (Past 12 Hours) Vital Signs Temp Pulse Pulse Resp BP Pulse Ox 04/20/20 08:16 36.5 C 88 19 92/57 L 91 04/20/20 03:57 36.4 C L 85 20 105/61 92 04/19/20 23:00 36.4 C L 76 20 117/66 92 04/19/20 21:45 82 Laboratory Results Laboratory Results - last 24 hr 04/19/20 04/19/20 04/19/20 11:55 18:09 23:25 WBC RBC Hgb Hct MCV MCH MCHC RDW Std Deviation RDW Coeff of Jose R Plt Count MPV Platelet Estimate Sodium Potassium Chloride Carbon Dioxide Anion Gap BUN Creatinine Est Cr Clr Drug Dosing Est GFR ( Amer) Est GFR (Non-Af Amer) BUN/Creatinine Ratio Glucose POC Glucose 217 H 267 H 215 H Calcium Phosphorus Magnesium 04/20/20 04/20/20 04/20/20 05:33 06:19 06:19 WBC 13.49 H RBC 4.98 Hgb 15.3 Hct 46.0 MCV 92.4 MCH 30.7 MCHC 33.3 RDW Std Deviation 48.7 H RDW Coeff of Jose R 14.5 Plt Count 115 L MPV 12.7 H Platelet Estimate Decreased L Sodium 143 Potassium 3.2 L Chloride 105 Carbon Dioxide 30 Anion Gap 8.0 BUN 27 H Creatinine 0.98 Est Cr Clr Drug Dosing 51.4 Est GFR ( Amer) 86.5 Est GFR (Non-Af Amer) 74.6 BUN/Creatinine Ratio 27.1 H Glucose 253 H POC Glucose 254 H Calcium 8.6 Phosphorus 2.9 Magnesium 2.0 (1) COPD (chronic obstructive pulmonary disease) COPD type: unspecified COPD Qualified Code(s): J44.9 - Chronic obstructive pulmonary disease, unspecified (2) Hypotension Hypotension type: unspecified hypotension type Qualified Code(s): I95.9 - Hypotension, unspecified
[2020-04-20] MEDS: INSULIN GLARGINE SOLOSTAR 100 UNITS/ML 3 ML PEN SC SCH (08:59)
[2020-04-20] MEDS ORDERED: Nursing to Pharmacy Communication SCH (10:45)
[2020-04-20] MEDS: cefTRIAXone SODIUM 1,000 MG in DEXTROSE 5% 50 ML IV SCH (11:56)
[2020-04-20] MEDS: FIBERSOURCE HN 1.2 CAL 1000 ML BAG GT SCH ×2 (12:24→23:41)
[2020-04-20] MEDS: METOPROLOL TARTRATE 25 MG TAB PO SCH (21:21)
[2020-04-21] MEDS: INSULIN ASPART 100 UNITS/ML 3 ML PEN SC SCH ×5 (00:09→23:51)
[2020-04-21] MEDS: TUBE FEEDING WATER FLUSH GT SCH ×4 (05:35→20:26)
[2020-04-21 07:05] LABS: Mean Corpuscular Hgb Conc 34.1 g/dL (32-36)
[2020-04-21 07:21] LABS: BUN Creatinine Ratio 27.5 (10-20); Calcium 8.7 mg/dl (8.5-10.1); Creatinine Clr Calc Pharmacy 61.1 ml/min; Est GFR (African American) 99.6; Est GFR (Non-African American) 85.9; Magnesium 2.1 mg/dl (1.8-2.4); Phosphorus 3.4 mg/dl (2.5-4.9); Potassium 3.5 mmol/L (3.5-5.1)
[2020-04-21 07:30] LABS: Hematocrit (blood only) 46.3 % (42-52); Hemoglobin 15.8 g/dL (14.0-18.0); Mean Corpuscular Hemoglobin 31.4 pg (25-34); Mean Platelet Volume 12.8 fL (7.4-10.4); Platelet Count 122 K/uL (130-400); Platelet Estimate Decreased (Normal); RDW Coefficient of Variation 14.5 % (11.5-14.5); RDW Standard Deviation 49.3 fL (36.4-46.3); Red Blood Count 5.03 M/uL (4.7-6.1)
[2020-04-21] MEDS: dexAMETHasone 6 MG in SYRINGE 0 ML IV SCH (08:12)
[2020-04-21] MEDS: ASPIRIN 81 MG CHEW PEG SCH (08:12)
[2020-04-21] MEDS: METOPROLOL TARTRATE 25 MG TAB PO SCH ×2 (08:13→20:25)
[2020-04-21] MEDS: UMECLIDINIUM/VILANTEROL 62.5/25MCG 7 PUFFS/INHALER INH SCH (08:17)
[2020-04-21] MEDS: INSULIN GLARGINE SOLOSTAR 100 UNITS/ML 3 ML PEN SC SCH (08:18)
[2020-04-21] MEDS: ENOXAPARIN INJ 40 MG/0.4 ML SYR SQ SCH (08:18)
[2020-04-21] MEDS: CHOLECALCIFEROL 1,000 UNITS 25 MCG TAB PEG SCH (08:18)
[2020-04-21] MEDS: cefTRIAXone SODIUM 1,000 MG in DEXTROSE 5% 50 ML IV SCH (12:16)
--- NOTE | 2020-04-21 12:37 | Hospitalist Progress Note ---
Date of Service April 21, 2020 Assessment & Plan (1) COVID-19: (2) COPD (chronic obstructive pulmonary disease): (3) History of tobacco abuse: (4) History of head and neck cancer: (5) Acute respiratory failure with hypoxia: Sepsis Patient did meet sepsis criteria on admission with tachycardia and respiratory rate above 20 Lactate was 2.3 resolved to 1.4 Procalcitonin was 1.9 Possible sources include respiratory [COVID 19 infection] and urinary tract Continue to wean oxygen Will need ambulatory pulse ox prior to discharge Blood cultures negative. Urine culture growing Klebsiella. Was initially on Zosyn until culture results, no change to ceftriaxone. We will continue IV antibiotic for now while inpatient as patient is completely n.p.o. and being fed via PEG. Currently day 4 of antibiotics Continue dexamethasone 6 mg daily Day 4 Vice President Business & Corporate Development recommendations appreciated Continue nebs prn CT of the lung showed right middle lobe lung mass and right upper lobe lung nodules with paratracheal and hilar lymphadenopathy which is suspicious for metastatic disease considering history versus primary pulmonary malignancy. This can be worked up outpatient after recovery of acute illness. Will need outpatient PET/CT with MRI of the brain as well as PFTs. Discussed findings of CT lung, abdominal/Pelvis with patient's daughter yesterday about the need for outpatient follow-up with pulmonology and vascular (6) INNA (acute kidney injury): Cr 1.62 (was 1.1 in 2019) Likely INNA, prerenal INNA resolved. Creatinine 0.82 today IV fluids had been discontinued Continue tube flushes + tube feeding Avoid nephrotoxins (7) Hypotension: Hypotension resolved. Continue Metoprolol at lower dose of 25mg bid Continue to hold amlodipine (8) Uses feeding tube: Continue tube feeding Patient does look cachectic with bony prominence and muscle wasting with features of moderate to severe malnutrition. He does deny any recent weight loss Nutrition consult appreciated (9) Diabetes: Monitor blood glucose Lantus was increased to 15U daily for better control since patient is on dexamethasone FBG today is better at 139 Manage with insulin regimen per protocol (10) Acute UTI (urinary tract infection): Urinalysis showing positive nitrite/esterase/pyuria Urine culture growing Klebsiella Antibiotics deescalated to ceftriaxone (11) Elevated troponin: Troponin is elevated but flat Patient denies chest pain Continue aspirin Continue telemetry monitoring Thrombocytopenia Plt improving to [address] abdomen and pelvis on admission showed 32 mm infrarenal abdominal aortic aneurysm, 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 Patient will need follow-up with vascular surgery outpatient after recovery of acute illness further evaluation and management of vasculopathies DVT prophylaxis-Lovenox PT/OT evaluation noted. Inpatient rehab recommended but patient declined CM working with daughter on home health arrangements as patient recently moved here to the daughter's Admission and Anticipated Discharge Date Admission Date: April 18, 2020 Subjective Patient seen and examined. Reports feeling better Still has cough Still requiring oxygen via nasal cannula Per RN, ox sat was reported to have dropped to 87 when taken off oxygen overnight Physical Exam Constitutional: + well hydrated and + cachectic; no acute distress Eyes: Opacification of left cornea/sclera [chronic] ENMT: external ear and nose normal, oropharynx normal Respiratory: normal respiratory effort; no respiratory distress Diminished breath sounds Cardiovascular: Rate/Rhythm: regular rate and regular rhythm S1-S2 Gastrointestinal (Abdomen): normal bowel sounds, soft, nontender, no hepatosplenomegaly Musculoskeletal: No pedal edema Neurologic: PERRL, EOMI, accommodation nl, no face palsy, no dysarthria Psychiatric: A+Ox3, euthymic affect Genitourinary: no CVA tenderness Results & Data Results & Data ([facility]) Vital Signs (Past 12 Hours) Vital Signs Temp Pulse Pulse Resp BP Pulse Ox 04/21/20 08:00 36.9 C 85 16 110/66 92 04/21/20 03:00 36.4 C L 82 20 111/76 96 04/21/20 00:43 79 Laboratory Results Laboratory Results - last 24 hr 04/20/20 04/20/20 04/21/20 18:12 23:48 05:07 WBC RBC Hgb Hct MCV MCH MCHC RDW Std Deviation RDW Coeff of Jose R Plt Count MPV Platelet Estimate Sodium Potassium Chloride Carbon Dioxide Anion Gap BUN Creatinine Est Cr Clr Drug Dosing Est GFR ( Amer) Est GFR (Non-Af Amer) BUN/Creatinine Ratio Glucose POC Glucose 266 H 250 H 204 H Calcium Phosphorus Magnesium 04/21/20 04/21/20 04/21/20 05:54 05:54 12:08 WBC 11.10 H RBC 5.03 Hgb 15.8 Hct 46.3 MCV 92.0 MCH 31.4 MCHC 34.1 RDW Std Deviation 49.3 H RDW Coeff of Jose R 14.5 Plt Count 122 L MPV 12.8 H Platelet Estimate Decreased L Sodium 143 Potassium 3.5 Chloride 104 Carbon Dioxide 32 Anion Gap 7.0 BUN 23 H Creatinine 0.82 Est Cr Clr Drug Dosing 61.1 Est GFR ( Amer) 99.6 Est GFR (Non-Af Amer) 85.9 BUN/Creatinine Ratio 27.5 H Glucose 139 H POC Glucose 259 H Calcium 8.7 Phosphorus 3.4 Magnesium 2.1 (1) COPD (chronic obstructive pulmonary disease) COPD type: unspecified COPD Qualified Code(s): J44.9 - Chronic obstructive pulmonary disease, unspecified (2) Hypotension Hypotension type: unspecified hypotension type Qualified Code(s): I95.9 - Hypotension, unspecified
[2020-04-21] MEDS: FIBERSOURCE HN 1.2 CAL 1000 ML BAG GT SCH (20:26)
[2020-04-22] MEDS: TUBE FEEDING WATER FLUSH GT SCH ×4 (02:41→20:50)
[2020-04-22] MEDS: INSULIN ASPART 100 UNITS/ML 3 ML PEN SC SCH ×3 (05:46→18:09)
[2020-04-22 07:09] LABS: Hemoglobin 15.6 g/dL (14.0-18.0); Mean Corpuscular Hemoglobin 31.3 pg (25-34); Mean Corpuscular Hgb Conc 34.7 g/dL (32-36); Mean Corpuscular Volume 90.4 fL (80-100); Mean Platelet Volume 12.9 fL (7.4-10.4); Platelet Count 136 K/uL (130-400); RDW Coefficient of Variation 14.2 % (11.5-14.5); RDW Standard Deviation 47.1 fL (36.4-46.3); Red Blood Count 4.98 M/uL (4.7-6.1); White Blood Count 11.15 K/uL (4.8-10.8)
[2020-04-22 07:44] LABS: BUN Creatinine Ratio 31.4 (10-20); Creatinine Clr Calc Pharmacy 69.4 ml/min; Est GFR (Non-African American) 90.6; Potassium 3.3 mmol/L (3.5-5.1)
[2020-04-22] MEDS: dexAMETHasone 6 MG in SYRINGE 0 ML IV SCH (09:05)
[2020-04-22] MEDS: ASPIRIN 81 MG CHEW PEG SCH (09:05)
[2020-04-22] MEDS: UMECLIDINIUM/VILANTEROL 62.5/25MCG 7 PUFFS/INHALER INH SCH (09:05)
[2020-04-22] MEDS: CHOLECALCIFEROL 1,000 UNITS 25 MCG TAB PEG SCH (09:06)
[2020-04-22] MEDS: METOPROLOL TARTRATE 25 MG TAB PO SCH ×2 (09:06→20:50)
[2020-04-22] MEDS: ENOXAPARIN INJ 40 MG/0.4 ML SYR SQ SCH (09:06)
[2020-04-22] MEDS: INSULIN GLARGINE SOLOSTAR 100 UNITS/ML 3 ML PEN SC SCH (09:15)
--- NOTE | 2020-04-22 11:45 | Hospitalist Progress Note ---
Date of Service April 22, 2020 Assessment & Plan (1) COVID-19: (2) COPD (chronic obstructive pulmonary disease): (3) History of tobacco abuse: (4) History of head and neck cancer: (5) Acute respiratory failure with hypoxia: Sepsis Patient did meet sepsis criteria on admission with tachycardia and respiratory rate above 20 Lactate was 2.3 resolved to 1.4 Procalcitonin was 1.9 Sources include respiratory [COVID 19 infection] and urinary tract Continue to wean oxygen Will need ambulatory pulse ox/2 step prior to discharge to assess oxygen requirement Blood cultures negative. Urine culture growing Klebsiella. Was initially on Zosyn until culture results, now changed to ceftriaxone. We will continue IV antibiotic for now while inpatient as patient is completely n.p.o. and being fed via PEG. Currently day 5 of antibiotics Continue dexamethasone 6 mg daily Day 5 Service Car Operator recommendations appreciated Continue nebs prn CT of the lung showed right middle lobe lung mass and right upper lobe lung nodules with paratracheal and hilar lymphadenopathy which is suspicious for m etastatic disease considering history versus primary pulmonary malignancy. This can be worked up outpatient after recovery of acute illness. Will need outpatient PET/CT with MRI of the brain as well as PFTs. Discussed findings of CT lung, abdominal/Pelvis with patient's daughter yesterday about the need for outpatient follow-up with pulmonology and vascular (6) INNA (acute kidney injury): Cr 1.62 (was 1.1 in 2019) Likely INNA, prerenal INNA resolved. Creatinine 0.72 today IV fluids had been discontinued Continue tube flushes + tube feeding Avoid nephrotoxins Hypokalemic today. Replete (7) Hypotension: Hypotension resolved. BP improving Continue Metoprolol at lower dose of 25mg bid Continue to hold amlodipine and enalapril and monitor May resume as BP improves (8) Uses feeding tube: Continue tube feeding Patient does look cachectic with bony prominence and muscle wasting with features of moderate to severe malnutrition. Visual Communications Instructor on board Discussed with Dietitian today. Will provide recommendations for tubefeeding supplies when patient is ready for discharge Reported diarrhea likely related to tubefeeding. Will monitor Probiotics ordered (9) Diabetes: Monitor blood glucose Lantus was increased to 15U daily for better control since patient is on dexamethasone Monitor and adjust as needed Manage with insulin regimen per protocol (10) Acute UTI (urinary tract infection): Urinalysis showing positive nitrite/esterase/pyuria Urine culture growing Klebsiella Antibiotics deescalated to ceftriaxone as above (11) Elevated troponin: Troponin is elevated but flat Patient denies chest pain Continue aspirin Continue telemetry monitoring Thrombocytopenia Plt improving to [address] abdomen and pelvis on admission showed 32 mm infrarenal abdominal aortic aneurysm, 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 Patient will need follow-up with vascular surgery outpatient after recovery of acute illness further evaluation and management of vasculopathies DVT prophylaxis-Lovenox PT/OT evaluation noted. Inpatient rehab recommended but patient declined CM working with daughter on home health arrangements as patient recently moved here to the daughter's Admission and Anticipated Discharge Date Admission Date: April 18, 2020 Subjective Patient seen and examined. Reports diarrhea which he attributed to the tube feeding. Still requiring oxygen intermittently. Denies chest pain, shortness of breath No fevers or chills Physical Exam Constitutional: + well hydrated and + cachectic; no acute distress ENMT: external ear and nose normal, oropharynx normal Respiratory: normal respiratory effort; no respiratory distress Diminished breath sounds, no crackles Cardiovascular: Rate/Rhythm: regular rate and regular rhythm S1-S2 No pedal edema Gastrointestinal (Abdomen): normal bowel sounds, soft, nontender, no hepatosplenomegaly PEG tube in situ Neurologic: PERRL, EOMI, accommodation nl, no face palsy, no dysarthria Psychiatric: A+Ox3, euthymic affect Genitourinary: no CVA tenderness Results & Data Results & Data ([facility]) Vital Signs (Past 12 Hours) Vital Signs Temp Pulse Pulse Resp BP Pulse Ox 04/22/20 09:00 75 04/22/20 07:50 36.8 C 90 20 157/75 H 92 04/22/20 03:45 36.6 C 74 19 109/75 91 04/21/20 23:51 36.7 C 82 20 115/68 90 Laboratory Results Laboratory Results - last 24 hr 04/21/20 04/21/20 04/21/20 12:08 18:00 23:48 WBC RBC Hgb Hct MCV MCH MCHC RDW Std Deviation RDW Coeff of Jose R Plt Count MPV Sodium Potassium Chloride Carbon Dioxide Anion Gap BUN Creatinine Est Cr Clr Drug Dosing Est GFR ( Amer) Est GFR (Non-Af Amer) BUN/Creatinine Ratio Glucose POC Glucose 259 H 244 H 225 H Calcium 04/22/20 04/22/20 04/22/20 05:38 06:43 06:43 WBC 11.15 H RBC 4.98 Hgb 15.6 Hct 45.0 MCV 90.4 MCH 31.3 MCHC 34.7 RDW Std Deviation 47.1 H RDW Coeff of Jose R 14.2 Plt Count 136 MPV 12.9 H Sodium 138 Potassium 3.3 L Chloride 101 Carbon Dioxide 30 Anion Gap 7.0 BUN 23 H Creatinine 0.72 Est Cr Clr Drug Dosing 69.4 Est GFR ( Amer) 105.0 Est GFR (Non-Af Amer) 90.6 BUN/Creatinine Ratio 31.4 H Glucose 186 H POC Glucose 224 H Calcium 9.0 (1) COPD (chronic obstructive pulmonary disease) COPD type: unspecified COPD Qualified Code(s): J44.9 - Chronic obstructive pulmonary disease, unspecified (2) Hypotension Hypotension type: unspecified hypotension type Qualified Code(s): I95.9 - Hyp otension, unspecified
[2020-04-22] MEDS ORDERED: POTASSIUM CHLORIDE PWD 20 MEQ PACK GT ONE (11:53)
[2020-04-22] MEDS: cefTRIAXone SODIUM 1,000 MG in DEXTROSE 5% 50 ML IV SCH (12:45)
[2020-04-22] MEDS: LACTOBACILLUS ACIDOPHILUS 1 GM PACK PO SCH (17:51)
[2020-04-23] MEDS: INSULIN ASPART 100 UNITS/ML 3 ML PEN SC SCH ×4 (00:01→18:07)
[2020-04-23] MEDS: TUBE FEEDING WATER FLUSH GT SCH ×4 (02:09→20:31)
[2020-04-23 06:35] LABS: Hematocrit (blood only) 46.1 % (42-52); Hemoglobin 15.8 g/dL (14.0-18.0); Mean Corpuscular Hemoglobin 30.8 pg (25-34); Mean Corpuscular Hgb Conc 34.3 g/dL (32-36); Mean Corpuscular Volume 89.9 fL (80-100); Mean Platelet Volume 12.6 fL (7.4-10.4); Platelet Count 160 K/uL (130-400); RDW Coefficient of Variation 14.1 % (11.5-14.5); RDW Standard Deviation 46.6 fL (36.4-46.3); Red Blood Count 5.13 M/uL (4.7-6.1); White Blood Count 8.31 K/uL (4.8-10.8)
[2020-04-23 06:44] LABS: BUN Creatinine Ratio 31.8 (10-20); Calcium 8.6 mg/dl (8.5-10.1); Creatinine Clr Calc Pharmacy 70.1 ml/min; Est GFR (Non-African American) 90.6; Potassium 3.7 mmol/L (3.5-5.1)
[2020-04-23] MEDS: UMECLIDINIUM/VILANTEROL 62.5/25MCG 7 PUFFS/INHALER INH SCH (08:32)
[2020-04-23] MEDS: METOPROLOL TARTRATE 25 MG TAB PO SCH ×2 (08:33→20:31)
[2020-04-23] MEDS: ENOXAPARIN INJ 40 MG/0.4 ML SYR SQ SCH (08:33)
[2020-04-23] MEDS: CHOLECALCIFEROL 1,000 UNITS 25 MCG TAB PEG SCH (08:33)
[2020-04-23] MEDS: dexAMETHasone 6 MG in SYRINGE 0 ML IV SCH (08:34)
[2020-04-23] MEDS: LACTOBACILLUS ACIDOPHILUS 1 GM PACK PO SCH ×2 (08:34→17:29)
[2020-04-23] MEDS: ASPIRIN 81 MG CHEW PEG SCH (08:34)
[2020-04-23] MEDS: INSULIN GLARGINE SOLOSTAR 100 UNITS/ML 3 ML PEN SC SCH (09:33)
[2020-04-23] MEDS: cefTRIAXone SODIUM 1,000 MG in DEXTROSE 5% 50 ML IV SCH (11:30)
--- NOTE | 2020-04-23 11:35 | Hospitalist Progress Note ---
Date of Service April 23, 2020 Assessment & Plan (1) COVID-19: (2) COPD (chronic obstructive pulmonary disease): (3) History of tobacco abuse: (4) History of head and neck cancer: (5) Acute respiratory failure with hypoxia: Sepsis onadmission Currently patient is on 2 L of nasal cannula. This is a new oxygen requirement for the patient during this hospitalization. We will do NOC ox study tonight. Blood cultures have been negative urine cultures growing Klebsiella initially patient was on Zosyn, currently on ceftriaxone day 6. Will complete total of 7 days of therapy, last day tomorrow. Continue with the Decadron 6 mg daily. Appreciate pulmonary medicine input. CT of the lung showed right middle lobe lung mass and right upper lobe lung nodules with paratracheal and hilar lymphadenopathy which is suspicious for metastatic disease considering history versus primary pulmonary malignancy. Patient will need to follow-up as an outpatient with pulmonary medicine and oncology. Bilateral common iliac artery aneurysms. Will need outpatient vascular follow- up. Previous physician to discuss the CT findings with the daughter. (6) INNA (acute kidney injury): Resolved Continue with water flushes/tube feeding. Monitor ins and outs. Avoid any nephrotoxic agents. (7) Hypotension: Resolved now. Pressures in the 100s. Continue with Lopressor 25 mg twice daily. Continue holding amlodipine and enalapril. (8) Uses feeding tube: Continue with tube feeds. Patient is moderate to severely malnourished. Patient is on board. Patient needs to feed supplies at discharge. (9) Diabetes: Lantus was increased to 15U daily for better control since patient is on dexamethasone Glycemic management as per pharmacy. (10) Acute UTI (urinary tract infection): Urinalysis showing positive nitrite/esterase/pyuria Cultures are growing Klebsiella. Continue ceftriaxone for 1 more day. (11) Elevated troponin: Patient denies any chest pain. Continue with aspirin. 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 Patient will need follow-up with vascular surgery outpatient after recovery of acute illness further evaluation and management of vasculopathies DVT prophylaxis-Lovenox PT/OT evaluation noted. Patient was recommended inpatient rehab but he wants to go home. CM working with daughter on home health arrangements as patient recently moved here to the daughter's. Admission and Anticipated Discharge Date Admission Date: April 18, 2020 Subjective Patient is awake, alert and oriented x3. Not have any major complaints at the moment. Currently on 2 L of nasal cannula. Denies any nausea or vomiting. He denies any chest pain, shortness of breath, cough or any palpitations. He denies any abdominal pain, diarrhea or dysuria. Review of Systems Review of Systems: All systems reviewed & are unremarkable except as noted in HPI & below Physical Exam Physical Exam: General: A&Ox3. Chronically ill-appearing cachectic gentleman HENT: NCAT, MMM, EOMI Eyes: PERRLA Neck: Supple, normal range of motion CVS: normal rate and rhythm Resp: b/l good breath sounds Abdomen: Soft, distended nontender, PEG tube in place without any active discharge Extremities: No c/c/e Neuro: No gross focal deficits appreciated Skin: warm and dry, no rashes/lesions/errythema MSK: normal ROM, no joint swelling/erythema Results & Data Results & Data ([facility]) Vital Signs (Past 12 Hours) Vital Signs Temp Pulse Pulse Resp BP Pulse Ox 04/23/20 08:18 36.9 C 998 H 20 103/71 92 04/23/20 07:00 96 H 04/23/20 03:39 36.9 C 89 18 108/65 92 04/22/20 23:41 77 (1) COPD (chronic obstructive pulmonary disease) COPD type: unspecified COPD Qualified Code(s): J44.9 - Chronic obstructive pulmonary disease, unspecified (2) Hypotension Hypotension type: unspecified hypotension type Qualified Code(s): I95.9 - Hypotension, unspecified
[2020-04-23] MEDS: FIBERSOURCE HN 1.2 CAL 1000 ML BAG GT SCH (12:23)
[2020-04-24] MEDS: INSULIN ASPART 100 UNITS/ML 3 ML PEN SC SCH ×5 (00:30→20:22)
[2020-04-24] MEDS: TUBE FEEDING WATER FLUSH GT SCH ×4 (03:23→20:49)
[2020-04-24] MEDS: FIBERSOURCE HN 1.2 CAL 1000 ML BAG GT SCH (06:13)
[2020-04-24 06:56] LABS: Creatinine Clr Calc Pharmacy 63.3 ml/min; Est GFR (African American) 100.6; Est GFR (Non-African American) 86.8
[2020-04-24] MEDS: ASPIRIN 81 MG CHEW PEG SCH (08:38)
[2020-04-24] MEDS: dexAMETHasone 6 MG in SYRINGE 0 ML IV SCH (08:38)
[2020-04-24] MEDS: ENOXAPARIN INJ 40 MG/0.4 ML SYR SQ SCH (08:39)
[2020-04-24] MEDS: CHOLECALCIFEROL 1,000 UNITS 25 MCG TAB PEG SCH (08:39)
[2020-04-24] MEDS: METOPROLOL TARTRATE 25 MG TAB PO SCH ×2 (08:39→20:49)
[2020-04-24] MEDS: LACTOBACILLUS ACIDOPHILUS 1 GM PACK PO SCH ×2 (08:46→16:16)
[2020-04-24] MEDS: UMECLIDINIUM/VILANTEROL 62.5/25MCG 7 PUFFS/INHALER INH SCH (08:46)
[2020-04-24] MEDS: INSULIN GLARGINE SOLOSTAR 100 UNITS/ML 3 ML PEN SC SCH (09:07)
--- NOTE | 2020-04-24 11:24 | XRay Report ---
XR chest 1V portable HISTORY: hypoxia COMPARISON: Chest 04/18/2020. FINDINGS: Emphysema. The heart is normal in size. No pneumothorax. No pleural effusions. Interval dev elopment of a right midlung zone airspace opacity. This favors a pneumonia. This obscures the 12 mm r ight upper lobe nodule. Right hilar prominence which could be due to lymphadenopathy persists. Small patchy densities within the left lung base remain unchanged. Small patchy densities within the left m idlung zone are also new from the prior study. IMPRESSION: 1. Bilateral mid lung zone airspace opacities, right greater than left. This is new from the prior st udy and is concerning for a pneumonia. 2. Emphysema. 3. Persistent right hilar lymphadenopathy. 4. The 12 mm right upper lobe nodule is obscured by the suspected pneumonia. ACT 112: Negative or not required by law. Electronically signed by: Paul Lim M.D. 04/24/2020 11:23 AM
[2020-04-24] MEDS: cefTRIAXone SODIUM 1,000 MG in DEXTROSE 5% 50 ML IV SCH (11:47)
[2020-04-24] MEDS ORDERED: PHARMACY GLYCEMIC MGMT CONSULT PRN (11:55)
[2020-04-24] MEDS ORDERED: INSULIN GLARGINE SOLOSTAR 100 UNITS/ML 3 ML PEN SC ONE (12:00)
--- NOTE | 2020-04-24 12:57 | Hospitalist Progress Note ---
Date of Service April 24, 2020 Assessment & Plan (1) COVID-19: (2) COPD (chronic obstructive pulmonary disease): (3) History of tobacco abuse: (4) History of head and neck cancer: (5) Acute respiratory failure with hypoxia: Sepsis onadmission Currently patient remains on 2 L of nasal cannula. Given worsening hypoxia, obtain chest x-ray and procalcitonin. Patient remains afebrile. White count is within normal limit. Blood cultures have been negative urine cultures growing Klebsiella initially patient was on Zosyn, currently on ceftriaxone day 7. Even concern for possible aspiration component as well, will add IV Flagyl. Continue with the Decadron 6 mg daily. Appreciate pulmonary medicine input. CT of the lung showed right middle lobe lung mass and right upper lobe lung nodules with paratracheal and hilar lymphadenopathy which is suspicious for metastatic disease considering history versus primary pulmonary malignancy. Patient will need to follow-up as an outpatient with pulmonary medicine and oncology. Bilateral common iliac artery aneurysms. Will need outpatient vascular follow- up. Previous physician to discuss the CT findings with the daughter. (6) INNA (acute kidney injury): Resolved Continue with water flushes/tube feeding. Monitor ins and outs. Avoid any nephrotoxic agents. (7) Hypotension: Resolved now. Pressures in the 100s. Continue with Lopressor 25 mg twice daily. Continue holding amlodipine and enalapril. (8) Uses feeding tube: Continue with tube feeds. Patient is moderate to severely malnourished. Patient is on board. Patient needs feeding supplies at discharge. Discharge recommedations: "I have recommendations for TF for Mickey Davenport ([id number]). Upon D/C, consider resuming a bolus TF regimen for QoL & D/C Boost [facility] at home. Provide 1 carton (250 ml) of Fibersource HN 6x/day (sample schedule: 0700, 1000, 1300, 1600, 1900, 2200). Adjust schedule per pt./dtr preferences. TF would provide 1500 ml TV, 1800 kcal (32 kcal/kg), 81 g protein (1.4 g/kg) & 1212 ml free H2O. Provide 60 ml H2O flushes before & after each TF bolus (720 ml total H2O flushes & 1932 ml total free H2O/day (34 ml/kg). Pt's dtr. should check his wt once weekly via standing scale at home. If wt trends down, she can increase his bolus to 275 ml, 6x/day. Pt's dtr should also monitor for s/s of DHN & increase his free H2O flushes PRN (RD discussed this w/dtr Tamia" (9) Diabetes: Remains hyperglycemic. Lantus was increased to 20U daily for better control since patient is on dexamethasone Glycemic management as per pharmacy. (10) Acute UTI (urinary tract infection): Urinalysis showing positive nitrite/esterase/pyuria Cultures are growing Klebsiella. Continue ceftriaxone. (11) Elevated troponin: Patient denies any chest pain. Continue with aspirin. 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 Patient will need follow-up with vascular surgery outpatient after recovery of acute illness further evaluation and management of vasculopathies DVT prophylaxis-Lovenox PT/OT evaluation noted. Patient was recommended inpatient rehab but he wants to go home. CM working with daughter on home health arrangements as patient recently moved here to the daughter's. Admission and Anticipated Discharge Date Admission Date: April 18, 2020 Subjective Overnight no Coxon was attempted. As per vitals, initially patient was on 6 L 80 transitioned to room air. Lowest saturation was 84% overnight this morning patient was on room air but desaturated to 82% and was placed on 2 L of nasal cannula. Patient reports he is having significant productive cough, also endorses some shortness of breath. Denies any chest pain or abdominal pain. D enies any diarrhea or dysuria. Review of Systems Review of Systems: All systems reviewed & are unremarkable except as noted in HPI & below Physical Exam Physical Exam: General: A&Ox3. Chronically ill-appearing cachectic gentleman HENT: NCAT, MMM, EOMI Eyes: PERRLA Neck: Supple, normal range of motion CVS: normal rate and rhythm Resp: b/l coarse breath sounds Abdomen: Soft, distended nontender, PEG tube in place without any active discharge Extremities: No c/c/e Neuro: No gross focal deficits appreciated Skin: warm and dry, no rashes/lesions/errythema MSK: normal ROM, no joint swelling/erythema Results & Data Results & Data ([facility]) Vital Signs (Past 12 Hours) Vital Signs Temp Pulse Pulse Resp BP Pulse Ox 04/24/20 11:49 36.9 C 101 H 18 108/69 95 04/24/20 08:05 84 L 04/24/20 07:45 36.8 C 100 H 22 104/60 84 L 04/24/20 07:00 109 H 04/24/20 04:41 37.2 C 107 H 18 119/66 88 L (1) COPD (chronic obstructive pulmonary disease) COPD type: unspecified COPD Qualified Code(s): J44.9 - Chronic obstructive pulmonary disease, unspecified (2) Hypotension Hypotension type: unspecified hypotension type Qualified Code(s): I95.9 - Hypotension, unspecified
--- NOTE | 2020-04-24 13:17 | Pharmacy Report ---
Pharmacy Glycemic Short Note 2 - Date of Service April 24, 2020 - Glycemic Short BSG Results (Last 24 hours): 04/23/20 04/24/20 04/24/20 17:59 00:06 06:05 POC Glucose 250 H 217 H 314 H* 04/24/20 11:46 POC Glucose 242 H OUTPATIENT ANTIDIABETIC REGIMEN: * Glipizide 5mg PO daily * A1c = 6.8% on 04/19/20 ASSESSMENT: * 75yo T2DM male with excellent outpatient control per recent A1c. Pt is maintai josh on low dose glipizide as an outpatient. * Oral agents are not recommended for inpatient use d/t drug interactions, changing PO intake, and difficulty titrating for acute hyper/hypoglycemia. ADA recommends re-initiating outpatient oral agents 1-2 days prior to discharge if/when appropriate if they were held on admission. * Glipizide held on admission and pt initiated on SQ basal bolus insulin regimen. * Pt remains hyperglycemic secondary to Dexamethasone 6mg IV daily + continuous CHO via continuous tube feedings with fibersource at 60ml/hr * Pt has received 55 units of insulin over the past 24hrs * 20 units of basal with Lantus * 33 units of bolus with NovoLog * BSGs [phone] mg/dl * All BSGs are above goal range. Pt needs more basal and more prandial insulin. * Since steroids have their most profound effect on post-prandial hyperglycemia and likely the main cause of hyperglycemia is the tube feedings will only conservatively increase Lantus and aggressively increase NovoLog parameters. Will also change NovoLog from Q6hrs to Q4hrs for better RTC coverage. PLAN FOR INPATIENT GLYCEMIC CONTROL: * Hold outpatient oral diabetes medications * Basal insulin * Increase Lantus from 20 to 30 units SQ daily * Bolus insulin * NovoLog per scale Q4hrs * Goal Range: Low 120 mg/dL - High 150 mg/dL * Correction Factor: 30 mg/dL/unit * Nutritional / Prandial insulin per carb ratio of 1 unit per 9 grams CHO consumed * This CHO ratio will cover the amount of CHO delivered by tube feeds over 4 hours. See MAR for details. PLAN FOR DISCHARGE: * TBD. A1c is in goal range with glipizide. Likely ok to continue unless steroids or tube feeds are continued at ma and then dose adjustment +/- insulin may be needed.
[2020-04-24] MEDS: metroNIDAZOLE 500 MG/100 ML BAG IV SCH ×2 (14:00→20:49)
[2020-04-25] MEDS: INSULIN ASPART 100 UNITS/ML 3 ML PEN SC SCH ×7 (00:05→23:51)
[2020-04-25] MEDS: TUBE FEEDING WATER FLUSH GT SCH ×4 (03:00→19:54)
[2020-04-25] MEDS: FIBERSOURCE HN 1.2 CAL 1000 ML BAG GT SCH ×2 (03:53→23:40)
[2020-04-25] MEDS: metroNIDAZOLE 500 MG/100 ML BAG IV SCH ×2 (05:55→13:22)
[2020-04-25 06:30] LABS: Nucleated RBC # (auto) 0.08 K/uL (0-0); Nucleated RBC % (auto) 0.7 %
[2020-04-25 06:43] LABS: Basophils # (auto) 0.02 K/uL (0-0.2); Basophils % (auto) 0.2 %; Eosinophils # (auto) 0.01 K/uL (0-0.5); Eosinophils % (auto) 0.1 %; Hemoglobin 15.2 g/dL (14.0-18.0); Immature Granulocytes # (auto) 0.27 K/uL (0.00-0.02); Immature Granulocytes % (auto) 2.4 %; Lymphocytes # (auto) 0.82 K/uL (1.2-3.4); Lymphocytes % (auto) 7.3 %; Mean Corpuscular Hemoglobin 30.8 pg (25-34); Mean Corpuscular Hgb Conc 34.5 g/dL (32-36); Mean Corpuscular Volume 89.1 fL (80-100); Mean Platelet Volume 11.9 fL (7.4-10.4); Monocytes # (auto) 0.65 K/uL (0.11-0.59); Monocytes % (auto) 5.8 %; Neutrophils # (auto) 9.51 K/uL (1.4-6.5); Neutrophils % (auto) 84.2 %; Platelet Count 260 K/uL (130-400); RDW Coefficient of Variation 14.4 % (11.5-14.5); RDW Standard Deviation 46.9 fL (36.4-46.3); Red Blood Count 4.94 M/uL (4.7-6.1); White Blood Count 11.28 K/uL (4.8-10.8)
[2020-04-25 06:52] LABS: BUN Creatinine Ratio 28.2 (10-20); Calcium 8.4 mg/dl (8.5-10.1); Est GFR (African American) 102.2; Est GFR (Non-African American) 88.1; Magnesium 2.1 mg/dl (1.8-2.4); Phosphorus 3.2 mg/dl (2.5-4.9); Potassium 3.8 mmol/L (3.5-5.1)
[2020-04-25] MEDS: LACTOBACILLUS ACIDOPHILUS 1 GM PACK PO SCH ×2 (08:47→15:21)
[2020-04-25] MEDS: ASPIRIN 81 MG CHEW PEG SCH (08:47)
[2020-04-25] MEDS: CHOLECALCIFEROL 1,000 UNITS 25 MCG TAB PEG SCH (08:47)
[2020-04-25] MEDS: METOPROLOL TARTRATE 25 MG TAB PO SCH ×2 (08:48→19:52)
[2020-04-25] MEDS: dexAMETHasone 6 MG in SYRINGE 0 ML IV SCH (08:48)
[2020-04-25] MEDS: ENOXAPARIN INJ 40 MG/0.4 ML SYR SQ SCH (08:49)
[2020-04-25] MEDS ORDERED: INSULIN GLARGINE SOLOSTAR 100 UNITS/ML 3 ML PEN SC SCH (09:00)
[2020-04-25] MEDS: UMECLIDINIUM/VILANTEROL 62.5/25MCG 7 PUFFS/INHALER INH SCH (09:13)
--- NOTE | 2020-04-25 10:22 | Hospitalist Progress Note ---
Date of Service April 25, 2020 Assessment & Plan (1) Pneumonia due to COVID-19 virus: covid pneumonia present. Remdesivir not offered, and currently too late in course (initial INNA). Continues on Decadron Day 8, appropriate with continued hypoxia. Patient had sepsis on admission with UTI present and completed a course of 8 days ceftriaxone. Flagyl was added yesterday out of concern for possible aspiration, however, patient is afebrile and feels better. Has productive mucous. Procalcitonin is negative yesterday. Ceftriaxone and flagyl stopped. Cont probiotics and monitor closely. Crackles at bases bilaterally, otherwise good airflow throughout. (2) Sepsis: sepsis on admission-resuscitated. (3) Acute respiratory failure with hypoxia: Presented with sepsis 2/2 UTI and covid pneumonia-resuscitated. Currently on minimal supplemental oxygen. Cont plan below. (4) INNA (acute kidney injury): Resolved Continue with water flushes/tube feeding. Monitor ins and outs. Avoid any nephrotoxic agents. (5) COPD (chronic obstructive pulmonary disease): No active wheezing. Continue hypoxia and mucous production as above. Cont supportive care. Bronchodilators as needed. (6) History of head and neck cancer: PEG tube placed 4 years ago. (7) Diabetes: Pharmacy consulted for inpatient glycemic management. Currently around glycemic goal using basal bolus insulin. Sources of hyperglycemia include continued steroids and tube feeds. (8) Acute UTI (urinary tract infection): Klebseilla UTI treated with course of ceftriaxone. (9) Elevated troponin: severe peripheral vascular disease in setting of sepsis on admission, likely related to demand ischemia. (10) Malnutrition: Cont tube feeds. Transitioning care from [place] area to here. Nutrition recommendations include bolus tube feeds. Prescription for new tube feeds to be provided on discharge. (11) DVT prophylaxis: Lovenox Full Code Dispo-unclear at this time. Patient refusing recommended inpatient rehab as a transition to home. Current plans would be to send home when medically stable with home health for continued PT/OT. Charity Phipps DO [facility]ist Admission and Anticipated Discharge Date Admission Date: April 18, 2020 Subjective Feels that he is improved Still reports coughing up mucous Denies chest pain or SOB Reports walking with therapy Oral mucous membranes are dry and he is using self-swab at bedside He reports not being sure about his nutrition but is currently getting tube feeds through a PEG PEG placed 4 years ago Patient reports ambulating with therapy Symptom onset was roughly 3 dayas HOOKER OFF Can't sleep Review of Systems Review of Systems: All systems reviewed & are unremarkable except as noted in Subjective Physical Exam Physical Exam: CONSTITUTIONAL: thin, vitals as above, generally ill- appearing, NAD EYES: +opacification in right eye, o/w normal conjunctivae, no scleral icterus ENT: external ear and nose normal, OP reveals very dry mucous membranes RESPIRATORY: crackles at bases bilaterally, normal respiratory effort CARDIOVASCULAR: regular rate and rhythm, S1 and 2 heard without murmurs, gallops or rubs, no JVD, no peripheral edema GASTROINTESTINAL: soft, nontender, ND, no guarding, +PEG in place MUSCULOSKELETAL: strength 5/5 throughout, head is normocephalic and atraumatic, SKIN: warm and dry NEUROLOGIC: CN 2-12 grossly intact, normal cognition, no gross focal deficits. PSYCHIATRIC: alert cooperative and oriented Results & Data Results & Data ([facility]) Vital Signs (Past 12 Hours) Vital Signs Temp Pulse Pulse Resp BP Pulse Ox 04/25/20 08:05 37.0 C 72 18 122/65 95 04/25/20 04:00 36.7 C 108 H 20 136/71 93 04/25/20 00:59 91 H 04/24/20 23:00 36.5 C 99 H 20 118/65 91 Laboratory Results Short CBC 04/25/20 Range/Units 06:02 WBC 11.28 H (4.8-10.8) K/uL Hgb 15.2 (14.0-18.0) g/dL Hct 44.0 (42-52) % Plt Count 260 (130-400) K/uL BMP 04/25/20 06:02 Sodium 138 Potassium 3.8 Chloride 100 Carbon Dioxide 33 H BUN 22 H Creatinine 0.77 Glucose 137 H Calcium 8.4 L Medications Administered Current Inpatient Medications Acetaminophen (Acetaminophen Susp 325 Mg/10.15 Ml Udc) 650 mg PEG Q4H PRN PRN Reason: PAIN OR FEVER Stop: 05/18/20 09:53 Albuterol (Albuterol Hfa 8 Gm Inhaler) 2 puffs INH QID PRN PRN Reason: Shortness Of Breath Or Wheezing Stop: 05/18/20 07:31 Albuterol (Albuterol 0.083% Nebu Soln 3 Ml Vial) 2.5 mg INH Q6H PRN PRN Reason: shortness of breath or wheezing Stop: 05/18/20 07:31 Aspirin (Aspirin 81 Mg Chew) 81 mg PEG QAM [facility] Stop: 05/18/20 09:59 Last Admin: 04/25/20 08:47 Dose: 81 mg Documented by: Enoxaparin Sodium (Enoxaparin Inj 40 Mg/0.4 Ml Syr) 40 mg SQ DAILY [facility] Stop: 05/18/20 08:59 Last Admin: 04/25/20 08:49 Dose: 40 mg Documented by: Enteral Nutritional Formula (Fibersource Hn 1.2 Fredo 1000 Ml Bag) 1,000 ml GT TODAY@1300 [facility]; Protocol Stop: 05/18/20 12:59 Last Admin: 04/25/20 03:53 Dose: 1,000 ml Documented by: Finasteride (Finasteride 5 Mg Tab) 5 mg PO DAILY [facility] Stop: 05/18/20 08:59 Last Admin: 04/18/20 10:02 Dose: Not Given Documented by: Dexamethasone Sodium Phosphate (6 mg/ Syringe) 1.5 mls @ 1 mls/min IV DAILY [facility] Stop: 05/18/20 08:59 Last Admin: 04/25/20 08:48 Dose: 1 mls/min Documented by: Ceftriaxone Sodium 1,000 mg/ (Dextrose) 50 mls @ 100 mls/hr IV Q24H [facility]; Protocol Stop: 04/30/20 07:59 Last Infusion: 04/24/20 12:20 Dose: Infused Documented by: Metronidazole (Flagyl) 500 mg in 100 mls @ 100 mls/hr IV Q8H [facility] Stop: 04/26/20 13:59 Last Infusion: 04/25/20 09:12 Dose: Infused Documented by: Insulin Aspart (Insulin Aspart 100 Units/Ml 3 Ml Pen) 0 units SC Q4 [facility] Stop: 05/24/20 15:59 Last Admin: 04/25/20 09:04 Dose: 7 units Documented by: Insulin Glargine (Insulin Glargine Solostar 100 Units/Ml 3 Ml Pen) 30 units SC DAILY [facility] Stop: 05/25/20 08:59 Last Admin: 04/25/20 09:07 Dose: 30 units Documented by: Lactobacillus Acidophilus (Lactobacillus Acidophilus 1 Gm Pack) 1 gm PO BIDM [facility] Stop: 05/22/20 16:59 Last Admin: 04/25/20 08:47 Dose: 1 gm Documented by: Metoprolol Tartrate (Metoprolol Tartrate 1 Mg/Ml Vial) 5 mg IV Q6 PRN PRN Reason: Hypertension Stop: 05/18/20 07:31 Metoprolol Tartrate (Metoprolol Tartrate 25 Mg Tab) 25 mg PO BID [facility] Stop: 05/20/20 20:59 Last Admin: 04/25/20 08:48 Dose: 25 mg Documented by: Miscellaneous Information (Pharmacy Glycemic Mgmt Consult) 1 ea N/A UD PRN PRN Reason: Consult Stop: 05/24/20 11:54 Nitroglycerin (Nitroglycerin Sl 0.4 Mg/Tab Tab) 0.4 mg SL UD PRN PRN Reason: Chest Pain Stop: 05/18/20 07:31 Ondansetron HCl (Ondansetron Inj 2 Mg/Ml 2 Ml Vial) 4 mg IV Q6H PRN PRN Reason: Nausea Stop: 05/18/20 07:31 Sterile Water (Tube Feeding Water Flush) 200 ml GT Q6H [facility] Stop: 05/19/20 14:59 Last Admin: 04/25/20 09:12 Dose: 200 ml Documented by: Tamsulosin HCl (Tamsulosin Hcl 0.4 Mg Cap) 0.4 mg PO HS [facility] Stop: 05/18/20 20:59 Umeclidinium/Vilanterol (Umeclidinium/Vilanterol 62.5/25mcg 7 Puffs/Inhaler) 1 puffs INH DAILY [facility] Stop: 05/19/20 08:59 Last Admin: 04/25/20 09:13 Dose: 1 puffs Documented by: Vitamin D (Cholecalciferol 1,000 Units 25 Mcg Tab) 2,000 units PEG QAM [facility] Stop: 05/18/20 09:59 Last Admin: 04/25/20 08:47 Dose: 2,000 units Documented by: (1) COPD (chronic obstructive pulmonary disease) COPD type: unspecified COPD Qualified Code(s): J44.9 - Chronic obstructive pulmonary disease, unspecified
[2020-04-25] MEDS: cefTRIAXone SODIUM 1,000 MG in DEXTROSE 5% 50 ML IV SCH (11:29)
--- NOTE | 2020-04-25 11:29 | Pharmacy Report ---
Pharmacy Glycemic Short Note 2 - Date of Service April 25, 2020 - Glycemic Short BSG Results (Last 24 hours): 04/24/20 04/24/20 04/24/20 11:46 15:47 20:17 Glucose POC Glucose 242 H 191 H 128 H 04/24/20 04/25/20 04/25/20 23:53 03:29 06:02 Glucose 137 H POC Glucose 179 H 119 H 04/25/20 08:45 Glucose POC Glucose 217 H OUTPATIENT ANTIDIABETIC REGIMEN: * Glipizide 5mg PO daily * A1c = 6.8% on 04/19/20 ASSESSMENT: 04/25/20: * BSGs yesterday much better controlled throughout the day, 314, 242, 191, 128, and 179 mg/dL * Patient received 64 units of insulin (30 units of basal, 34 units of prandial/correctional) * Continuous tube feeds continue (Fibersource) @60 mL/hr, which provides ~38 g of dextrose over 4 hours * Continues on dexamethasone 6 mg IV daily - giving ~full weight-based stress of 3 Lantus with steroid 04/24/20: * 75yo T2DM male with excellent outpatient control per recent A1c. Pt is maintained on low dose glipizide as an outpatient. * Oral agents are not recommended for inpatient use d/t drug interactions, changing PO intake, and difficulty titrating for acute hyper/hypoglycemia. ADA recommends re-initiating outpatient oral agents 1-2 days prior to discharge if/when appropriate if they were held on admission. * Glipizide held on admission and pt initiated on SQ basal bolus insulin regimen. * Pt remains hyperglycemic secondary to Dexamethasone 6mg IV daily + continuous CHO via continuous tube feedings with fibersource at 60ml/hr * Pt has received 55 units of insulin over the past 24hrs * 20 units of basal with Lantus * 33 units of bolus with NovoLog * BSGs [phone] mg/dl * All BSGs are above goal range. Pt needs more basal and more prandial insulin. * Since steroids have their most profound effect on post-prandial hyperglycemia and likely the main cause of hyperglycemia is the tube feedings will only conservatively increase Lantus and aggressively increase NovoLog parameters. Will also change NovoLog from Q6hrs to Q4hrs for better RTC coverage. PLAN FOR INPATIENT GLYCEMIC CONTROL: * Hold outpatient oral diabetes medications * Basal insulin - continue * Continue Lantus 30 units SC daily (give with dexamethasone) * Bolus insulin - continue * NovoLog per scale Q4hrs * Goal Range: Low 120 mg/dL - High 150 mg/dL * Correction Factor: 30 mg/dL/unit * Nutritional / Prandial insulin per carb ratio of 1 unit per 9 grams CHO consumed * This CHO ratio will cover the amount of CHO delivered by tube feeds over 4 hours. See MAR for details. PLAN FOR DISCHARGE: * TBD. A1c is in goal range with glipizide. Likely ok to continue unless steroids or tube feeds are continued at dc and then dose adjustment +/- insulin may be needed.
[2020-04-26] MEDS: TUBE FEEDING WATER FLUSH GT SCH ×4 (03:31→20:03)
[2020-04-26] MEDS: INSULIN ASPART 100 UNITS/ML 3 ML PEN SC SCH ×5 (04:51→21:51)
[2020-04-26] MEDS: ASPIRIN 81 MG CHEW PEG SCH (07:58)
[2020-04-26] MEDS: METOPROLOL TARTRATE 25 MG TAB PO SCH (07:58)
[2020-04-26] MEDS: CHOLECALCIFEROL 1,000 UNITS 25 MCG TAB PEG SCH (07:58)
[2020-04-26] MEDS: UMECLIDINIUM/VILANTEROL 62.5/25MCG 7 PUFFS/INHALER INH SCH (07:59)
[2020-04-26] MEDS: LACTOBACILLUS ACIDOPHILUS 1 GM PACK PO SCH ×2 (07:59→17:36)
[2020-04-26] MEDS: ENOXAPARIN INJ 40 MG/0.4 ML SYR SQ SCH (07:59)
[2020-04-26] MEDS: dexAMETHasone 6 MG in SYRINGE 0 ML IV SCH (08:02)
[2020-04-26] MEDS: INSULIN GLARGINE SOLOSTAR 100 UNITS/ML 3 ML PEN SC SCH (08:51)
--- NOTE | 2020-04-26 09:06 | Hospitalist Progress Note ---
Date of Service April 26, 2020 Assessment & Plan (1) Pneumonia due to COVID-19 virus: covid pneumonia present. Remdesivir not offered, and currently too late in course (initial INNA). Continues on Decadron Day 9, appropriate with continued hypoxia which has improved. Patient had sepsis on admission with UTI present and completed a course of 8 days ceftriaxone. Flagyl also added out of concern for possible aspiration. Abx stopped yesterday and he is doing very well today. Chronically has productive cough, but this is improved. Cont probiotics and monitor closely. (2) Sepsis: sepsis on admission-resuscitated. (3) Acute respiratory failure with hypoxia: Presented with sepsis 2/2 UTI and covid pneumonia-resuscitated. Currently on minimal supplemental oxygen. Cont plan below. (4) INNA (acute kidney injury): Resolved Continue with water flushes/tube feeding. Monitor ins and outs. Avoid any nephrotoxic agents. (5) Tachycardia: Patient is on metoprolol 50mg PO BID at home, currently off this. HR in the low 100s. Will restart his metoprolol now. (6) COPD (chronic obstructive pulmonary disease): No active wheezing. Continue hypoxia and mucous production as above. Cont supportive care. Bronchodilators as needed. (7) History of head and neck cancer: PEG tube placed 4 years ago. (8) Diabetes: Pharmacy consulted for inpatient glycemic management. Currently around glycemic goal using basal bolus insulin. Sources of hyperglycemia include continued steroids and tube feeds. (9) Acute UTI (urinary tract infection): Kle[place]se[place] UTI treated with course of ceftriaxone. (10) Elevated troponin: severe peripheral vascular disease in setting of sepsis on admission, likely related to demand ischemia. Currently stable and asymptomatic. No further inpatient workup at this time. (11) Malnutrition: Cont tube feeds. Transitioning care from [place] area to here. Nutrition recommendations include bolus tube feeds. Prescription for new tube feeds to be provided on discharge. (12) DVT prophylaxis: Lovenox Full Code Dispo-transition off PCU. Patient refusing recommended inpatient rehab as a transition to home. Current plans would be to send home when medically stable with home health for continued PT/OT. Charity Phipps [facility] and [facility]ticipated Discharge Date Admission Date: April 18, 2020 Subjective 75 yo M with COPD presented with sepsis 2/2 COVID pneumonia and UTI, now resuscitated and completed antibiotic course, still with residual hypoxia Review of Systems Review of Systems: All systems reviewed & are unremarkable except as noted in Subjective Physical Exam Physical Exam: CONSTITUTIONAL: thin, vitals as above, generally ill- appearing, NAD EYES: +opacification in right eye, o/w normal conjunctivae, no scleral icterus ENT: external ear and nose normal, OP reveals very dry mucous membranes RESPIRATORY: crackles at bases bilaterally still present, normal respiratory effort. Speaking in full sentences. No conversational dyspnea. CARDIOVASCULAR: regular rate and rhythm, S1 and 2 heard without murmurs, gallops or rubs, no JVD, no peripheral edema GASTROINTESTINAL: soft, nontender, ND, no guarding, +PEG in place MUSCULOSKELETAL: strength 5/5 throughout, head is normocephalic and atraumatic, SKIN: warm and dry NEUROLOGIC: CN 2-12 grossly intact, normal cognition, no gross focal deficits. PSYCHIATRIC: alert cooperative and oriented Results & Data Results & Data ([facility]) Vital Signs (Past 12 Hours) Vital Signs Temp Pulse Pulse Resp BP Pulse Ox 04/26/20 07:46 112 H 20 134/81 99 04/26/20 04:12 36.9 C 98 H 20 112/72 96 04/26/20 00:00 93 H 04/25/20 22:19 37.0 C 93 H 20 127/71 99 Medications Administered Current Inpatient Medications Acetaminophen (Acetaminophen Susp 325 Mg/10.15 Ml Udc) 650 mg PEG Q4H PRN PRN Reason: PAIN OR FEVER Stop: 05/18/20 09:53 Albuterol (Albuterol Hfa 8 Gm Inhaler) 2 puffs INH QID PRN PRN Reason: Shortness Of Breath Or Wheezing Stop: 05/18/20 07:31 Albuterol (Albuterol 0.083% Nebu Soln 3 Ml Vial) 2.5 mg INH Q6H PRN PRN Reason: shortness of breath or wheezing Stop: 05/18/20 07:31 Aspirin (Aspirin 81 Mg Chew) 81 mg PEG QAM [facility] Stop: 05/18/20 09:59 Last Admin: 04/26/20 07:58 Dose: 81 mg Documented by: Enoxaparin Sodium (Enoxaparin Inj 40 Mg/0.4 Ml Syr) 40 mg SQ DAILY [facility] Stop: 05/18/20 08:59 Last Admin: 04/26/20 07:59 Dose: 40 mg Documented by: Enteral Nutritional Formula (Fibersource Hn 1.2 Fredo 1000 Ml Bag) 1,000 ml GT TODAY@1300 [facility]; Protocol Stop: 05/18/20 12:59 Last Admin: 04/25/20 23:40 Dose: 1,000 ml Documented by: Finasteride (Finasteride 5 Mg Tab) 5 mg PO DAILY [facility] Stop: 05/18/20 08:59 Last Admin: 04/18/20 10:02 Dose: Not Given Documented by: Dexamethasone Sodium Phosphate (6 mg/ Syringe) 1.5 mls @ 1 mls/min IV DAILY [facility] Stop: 05/18/20 08:59 Last Admin: 04/26/20 08:02 Dose: 1 mls/min Documented by: Insulin Aspart (Insulin Aspart 100 Units/Ml 3 Ml Pen) 0 units SC Q4 [facility] Stop: 05/24/20 15:59 Last Admin: 04/26/20 08:49 Dose: 7 units Documented by: Insulin Glargine (Insulin Glargine Solostar 100 Units/Ml 3 Ml Pen) 35 units SC DAILY [facility]; Protocol Stop: 05/25/20 08:59 Last Admin: 04/26/20 08:51 Dose: 35 units Documented by: Lactobacillus Acidophilus (Lactobacillus Acidophilus 1 Gm Pack) 1 gm PO BIDM [facility] Stop: 05/22/20 16:59 Last Admin: 04/26/20 07:59 Dose: 1 gm Documented by: Metoprolol Tartrate (Metoprolol Tartrate 1 Mg/Ml Vial) 5 mg IV Q6 PRN PRN Reason: Hypertension Stop: 05/18/20 07:31 Metoprolol Tartrate (Metoprolol Tartrate 25 Mg Tab) 25 mg PO BID [facility] Stop: 05/20/20 20:59 Last Admin: 04/26/20 07:58 Dose: 25 mg Documented by: Miscellaneous Information (Pharmacy Glycemic Mgmt Consult) 1 ea N/A UD PRN PRN Reason: Consult Stop: 05/24/20 11:54 Nitroglycerin (Nitroglycerin Sl 0.4 Mg/Tab Tab) 0.4 mg SL UD PRN PRN Reason: Chest Pain Stop: 05/18/20 07:31 Ondansetron HCl (Ondansetron Inj 2 Mg/Ml 2 Ml Vial) 4 mg IV Q6H PRN PRN Reason: Nausea Stop: 05/18/20 07:31 Sterile Water (Tube Feeding Water Flush) 200 ml GT Q6H [facility] Stop: 05/19/20 14:59 Last Admin: 04/26/20 08:00 Dose: 200 ml Documented by: Tamsulosin HCl (Tamsulosin Hcl 0.4 Mg Cap) 0.4 mg PO HS [facility] Stop: 05/18/20 20:59 Umeclidinium/Vilanterol (Umeclidinium/Vilanterol 62.5/25mcg 7 Puffs/Inhaler) 1 puffs INH DAILY [facility] Stop: 05/19/20 08:59 Last Admin: 04/26/20 07:59 Dose: 1 puffs Documented by: Vitamin D (Cholecalciferol 1,000 Units 25 Mcg Tab) 2,000 units PEG QAM [facility] Stop: 05/18/20 09:59 Last Admin: 04/26/20 07:58 Dose: 2,000 units Documented by: (1) COPD (chronic obstructive pulmonary disease) COPD type: unspecified COPD Qualified Code(s): J44.9 - Chronic obstructive pulmonary disease, unspecified
--- NOTE | 2020-04-26 09:57 | Pharmacy Report ---
Pharmacy Glycemic Short Note 2 - Date of Service April 26, 2020 - Glycemic Short BSG Results (Last 24 hours): OUTPATIENT ANTIDIABETIC REGIMEN: * Glipizide 5mg PO daily * A1c = 6.8% on 04/19/20 ASSESSMENT: 04/26: * Mr. Davenport received a total of 62 units of insulin yesterday * 30 units basal + 32 units bolus * BSGs acceptable yesterday: [phone] mg/dL * Fasting BSG this AM was improved but still above goal at 187 mg/dL * Will increase Lantus by 15% this morning * Patient remains on Dexamethasone 6 mg IV daily and Fibersource at 60 mL/hr which provides 38 grams of dextrose over 4 hours. * Given postprandial elevations in BSGs, will tighten CF and CR today 04/25: * BSGs yesterday much better controlled throughout the day, 314, 242, 191, 128, and 179 mg/dL * Patient received 64 units of insulin (30 units of basal, 34 units of prandial/correctional) * Continuous tube feeds continue (Fibersource) @60 mL/hr, which provides ~38 g of dextrose over 4 hours * Continues on dexamethasone 6 mg IV daily - giving ~full weight-based stress of 3 Lantus with steroid 04/24: * 75yo T2DM male with excellent outpatient control per recent A1c. Pt is maintained on low dose glipizide as an outpatient. * Oral agents are not recommended for inpatient use d/t drug interactions, changing PO intake, and difficulty titrating for acute hyper/hypoglycemia. ADA recommends re-initiating outpatient oral agents 1-2 days prior to discharge if/when appropriate if they were held on admission. * Glipizide held on admission and pt initiated on SQ basal bolus insulin regimen. * Pt remains hyperglycemic secondary to Dexamethasone 6mg IV daily + continuous CHO via continuous tube feedings with fibersource at 60ml/hr * Pt has received 55 units of insulin over the past 24hrs * 20 units of basal with Lantus * 33 units of bolus with NovoLog * BSGs [phone] mg/dl * All BSGs are above goal range. Pt needs more basal and more prandial insulin. * Since steroids have their most profound effect on post-prandial hyperglycemia and likely the main cause of hyperglycemia is the tube feedings will only conservatively increase Lantus and aggressively increase NovoLog parameters. Will also change NovoLog from Q6hrs to Q4hrs for better RTC coverage. PLAN FOR INPATIENT GLYCEMIC CONTROL: * Hold outpatient oral diabetes medications * Basal insulin - increase 15% * Lantus 35 units SC daily (give with dexamethasone) * Bolus insulin - tighten CF/CR * NovoLog per scale Q4hrs * Goal Range: Low 120 mg/dL - High 150 mg/dL * Correction Factor: 25 mg/dL/unit * Nutritional / Prandial insulin per carb ratio of 1 unit per 8 grams CHO consumed * This CHO ratio will cover the amount of CHO delivered by tube feeds over 4 hours. See MAR for details. PLAN FOR DISCHARGE: * TBD. A1c is in goal range with glipizide. Likely ok to continue unless steroids or tube feeds are continued at dc and then dose adjustment +/- insulin may be needed.
[2020-04-26] MEDS ORDERED: FINASTERIDE 5 MG TAB PO ONE (16:45)
[2020-04-26] MEDS ORDERED: TAMSULOSIN HCL 0.4 MG CAP PO ONE (16:45)
[2020-04-26] MEDS ORDERED: METOPROLOL TARTRATE 1 MG/ML VIAL IV STA (16:58)
[2020-04-26] MEDS: FIBERSOURCE HN 1.2 CAL 1000 ML BAG GT SCH (17:28)
[2020-04-26] MEDS: METOPROLOL TARTRATE 50 MG TAB PO SCH (20:03)
[2020-04-27] MEDS ORDERED: DEXTROSE 50% 50 ML SYRINGE IV PRN (00:45)
[2020-04-27] MEDS ORDERED: CARBOHYDRATES FOR HYPOGLYCEMIA PO PRN (00:45)
[2020-04-27] MEDS ORDERED: GLUCOSE 40% GEL 15 GM TUBE PO PRN (00:45)
[2020-04-27] MEDS ORDERED: GLUCOSE 10 TABS/TUBE PO PRN (00:45)
[2020-04-27] MEDS ORDERED: GLUCAGON FOR INJ 1 MG VIAL IM PRN (00:45)
[2020-04-27] MEDS: INSULIN ASPART 100 UNITS/ML 3 ML PEN SC SCH ×6 (01:00→21:01)
[2020-04-27] MEDS: TUBE FEEDING WATER FLUSH GT SCH ×4 (04:28→20:44)
[2020-04-27 06:35] LABS: Hematocrit (blood only) 43.2 % (42-52); Hemoglobin 14.6 g/dL (14.0-18.0); Mean Corpuscular Hemoglobin 30.5 pg (25-34); Mean Corpuscular Hgb Conc 33.8 g/dL (32-36); Mean Corpuscular Volume 90.4 fL (80-100); Mean Platelet Volume 11.3 fL (7.4-10.4); Nucleated RBC # (auto) 0.17 K/uL (0-0); Nucleated RBC % (auto) 1.6 %; Platelet Count 302 K/uL (130-400); RDW Coefficient of Variation 14.7 % (11.5-14.5); RDW Standard Deviation 48.6 fL (36.4-46.3); Red Blood Count 4.78 M/uL (4.7-6.1); White Blood Count 10.73 K/uL (4.8-10.8)
[2020-04-27 07:15] LABS: BUN Creatinine Ratio 30.9 (10-20); C Reactive Protein 3.8 mg/dl (0-0.29); Calcium 8.8 mg/dl (8.5-10.1); Creatinine Clr Calc Pharmacy 66.6 ml/min; Est GFR (African American) 102.2; Est GFR (Non-African American) 88.1; Potassium 3.6 mmol/L (3.5-5.1)
[2020-04-27] MEDS: CHOLECALCIFEROL 1,000 UNITS 25 MCG TAB PEG SCH (08:38)
[2020-04-27] MEDS: UMECLIDINIUM/VILANTEROL 62.5/25MCG 7 PUFFS/INHALER INH SCH (08:39)
[2020-04-27] MEDS: ASPIRIN 81 MG CHEW PEG SCH (08:39)
[2020-04-27] MEDS: ENOXAPARIN INJ 40 MG/0.4 ML SYR SQ SCH (08:39)
[2020-04-27] MEDS: LACTOBACILLUS ACIDOPHILUS 1 GM PACK PO SCH ×2 (08:40→16:25)
[2020-04-27] MEDS: dexAMETHasone 6 MG in SYRINGE 0 ML IV SCH (08:40)
[2020-04-27] MEDS: METOPROLOL TARTRATE 50 MG TAB PO SCH ×2 (08:40→20:47)
[2020-04-27] MEDS: INSULIN GLARGINE SOLOSTAR 100 UNITS/ML 3 ML PEN SC SCH (09:30)
[2020-04-27] MEDS: FINASTERIDE 5 MG TAB PO SCH (09:46)
--- NOTE | 2020-04-27 10:09 | Pharmacy Report ---
Pharmacy Glycemic Short Note 2 - Date of Service April 27, 2020 - Glycemic Short BSG Results (Last 24 hours): 04/26/20 04/26/20 04/26/20 11:41 16:12 16:50 Glucose POC Glucose 228 H 233 H 248 H 04/26/20 04/27/20 04/27/20 19:57 00:34 00:35 Glucose POC Glucose 187 H 62 L* 60 L* 04/27/20 04/27/20 04/27/20 01:16 04:26 05:36 Glucose 206 H POC Glucose 187 H 215 H 04/27/20 08:34 Glucose POC Glucose 173 H OUTPATIENT ANTIDIABETIC REGIMEN: * Glipizide 5mg PO daily * A1c = 6.8% on 04/19/20 ASSESSMENT: 04/27: * Mr. Davenport received a total of 78 units of insulin yesterday * 35 units basal + 43 units bolus * BSGs were uncontrolled: [phone] mg/dL * Second shift pharmacist spoke with provider last evening and plan is leave basal dose unchanged and tighten CF/CR * Patient had an episode of asymptomatic hypoglycemia last evening requiring a full amp of D50% to improve BSG * Tube feeds found to be leaking from site so this likely accounts for reason behind hypoglycemia. Patient was unsure how long tube feeds had been leaking. * Fasting BSG this AM was 173 mg/dL - above goal but improved * No change to Lantus per provider * Today is Day #1010 of IV Dexamethasone. Provider may start patient on steroid taper following this. * Tightened CF/CR last evening. Will tighten goal range to 110-140 mg/dL today to provide more Novolog. * Lunchtime BSG dropped significantly indicating too tight of carb coverage. Will loosen CF/CR very slightly. 04/26: * Mr. Davenport received a total of 62 units of insulin yesterday * 30 units basal + 32 units bolus * BSGs acceptable yesterday: [phone] mg/dL * Fasting BSG this AM was improved but still above goal at 187 mg/dL * Will increase Lantus by 15% this morning * Patient remains on Dexamethasone 6 mg IV daily and Fibersource at 60 mL/hr which provides 38 grams of dextrose over 4 hours. * Given postprandial elevations in BSGs, will tighten CF and CR today PLAN FOR INPATIENT GLYCEMIC CONTROL: * Hold outpatient oral diabetes medications * Basal insulin - no change * Lantus 35 units SC daily (give with dexamethasone) * Bolus insulin - tighten goal range and loosen CF/CR * NovoLog per scale Q4hrs * Goal Range: Low 110 mg/dL - High 140 mg/dL * Correction Factor: 18 mg/dL/unit * Nutritional / Prandial insulin per carb ratio of 1 unit per 6 grams CHO consumed * This CHO ratio will cover the amount of CHO delivered by tube feeds over 4 hours. See MAR for details. PLAN FOR DISCHARGE: * TBD. A1c is in goal range with glipizide. Likely ok to continue unless steroids or tube feeds are continued at dc and then dose adjustment +/- insulin may be needed.
--- NOTE | 2020-04-27 12:13 | Hospitalist Progress Note ---
Date of Service April 27, 2020 Assessment & Plan (1) Pneumonia due to COVID-19 virus: covid pneumonia present. Remdesivir not offered, and currently too late in course (initial INNA). Continues on Decadron Day 10, appropriate with continued hypoxia which has improved. Stop steroids at this time. Patient had sepsis on admission with UTI present and completed a course of 8 days ceftriaxone. Flagyl also added out of concern for possible aspiration. Abx have been stopped and he continues to do very well clinically. Chronically has productive cough, but this is improved and is likely related to his chronic ENT issues post cancer. Cont probiotics and monitor closely. (2) Sepsis: sepsis on admission-resuscitated. (3) Acute respiratory failure with hypoxia: Presented with sepsis 2/2 UTI and covid pneumonia-resuscitated. Currently on minimal supplemental oxygen. Cont plan below. (4) INNA (acute kidney injury): Resolved Continue with water flushes/tube feeding. Monitor ins and outs. Avoid any nephrotoxic agents. (5) Tachycardia: resolved. Patient is on metoprolol 50mg PO BID at home, which was held in setting of critical illness for about one week. Metoprolol restarted again last pm and HR is responding appropriately. (6) COPD (chronic obstructive pulmonary disease): No active wheezing or evidence of acute exacerbation. Continue hypoxia and mucous production as above. Cont supportive care. Bronchodilators as needed. (7) History of head and neck cancer: PEG tube placed 4 years ago. (8) Diabetes: Pharmacy consulted for inpatient glycemic management. Currently around glycemic goal using basal bolus insulin. Sources of hyperglycemia include continued steroids and tube feeds. (9) Acute UTI (urinary tract infection): [place] UTI treated with course of ceftriaxone. (10) Elevated troponin: severe peripheral vascular disease in setting of sepsis on admission, likely related to demand ischemia. Currently stable and asymptomatic. No further inpatient workup at this time. (11) Malnutrition: h/o head and neck cancer. Cont tube feeds. Transitioning care from [place] area to here. Nutrition recommendations include bolus tube feeds. Prescription for new tube feeds to be provided on discharge (placed in hard chart). (12) DVT prophylaxis: Lovenox Full Code Dispo-continue efforts to recondition him physically as he is declining rehab and will be going home to stay with his daughter. She is the mother of several young children and will be having some help from Home Health for PT/OT. Ambulate TID as tolerated. DO [facility] Hospitalist Admission and Anticipated Discharge Date Admission Date: April 18, 2020 Subjective 75 yo M with COPD presented with sepsis 2/2 COVID pneumonia and UTI, now resuscitated and completed antibiotic course, still with residual hypoxia Feeling well today Still requiring small amount of oxygen Discussed with the patient this may need to continue for a few weeks pending his recovery process For now will stop the steroids as we have completed 10 days Patient states that he cannot sleep Stopping steroids should help, and encouraged increased physical activity during the daytime. Tj qHS started. Review of Systems Review of Systems: All systems reviewed & are unremarkable except as noted in Subjective Physical Exam Physical Exam: CONSTITUTIONAL: thin, vitals as above, NAD EYES: +opacification in right eye, o/w normal conjunctivae, no scleral icterus ENT: external ear and nose normal, OP reveals very dry mucous membranes RESPIRATORY: crackles at bases bilaterally still present, diminished airflow throughout today, moreso noted today than yesterday but may have something to do with effort. normal baseline respiratory effort. Speaking in full sentences. No conversational dyspnea. CARDIOVASCULAR: regular rate and rhythm, S1 and 2 heard without murmurs, gallops or rubs, no JVD, no peripheral edema GASTROINTESTINAL: soft, nontender, ND, no guarding, +PEG in place MUSCULOSKELETAL: strength 5/5 throughout, head is normocephalic and atraumatic, SKIN: warm and dry NEUROLOGIC: CN 2-12 grossly intact, normal cognition, no gross focal deficits. PSYCHIATRIC: alert cooperative and oriented Results & Data Results & Data ([facility]) Vital Signs (Past 12 Hours) Vital Signs Temp Pulse Resp BP Pulse Ox 04/27/20 08:51 36.8 C 100 H 22 122/66 90 Laboratory Results Short CBC 04/27/20 Range/Units 05:36 WBC 10.73 (4.8-10.8) K/uL Hgb 14.6 (14.0-18.0) g/dL Hct 43.2 (42-52) % Plt Count 302 (130-400) K/uL BMP 04/27/20 05:36 Sodium 138 Potassium 3.6 Chloride 99 Carbon Dioxide 33 H BUN 24 H Creatinine 0.77 Glucose 206 H Calcium 8.8 Medications Administered Current Inpatient Medications Acetaminophen (Acetaminophen Susp 325 Mg/10.15 Ml Udc) 650 mg PEG Q4H PRN PRN Reason: PAIN OR FEVER Stop: 05/18/20 09:53 Albuterol (Albuterol Hfa 8 Gm Inhaler) 2 puffs INH QID PRN PRN Reason: Shortness Of Breath Or Wheezing Stop: 05/18/20 07:31 Albuterol (Albuterol 0.083% Nebu Soln 3 Ml Vial) 2.5 mg INH Q6H PRN PRN Reason: shortness of breath or wheezing Stop: 05/18/20 07:31 Aspirin (Aspirin 81 Mg Chew) 81 mg PEG QAM [facility] Stop: 05/18/20 09:59 Last Admin: 04/27/20 08:39 Dose: 81 mg Documented by: Dextrose (Dextrose 50% 50 Ml Syringe) 25 - 50 ml IV UD PRN; Protocol PRN Reason: Hypoglycemia Protocol Stop: 05/27/20 00:44 Last Admin: 04/27/20 00:51 Dose: 50 ml Documented by: Enoxaparin Sodium (Enoxaparin Inj 40 Mg/0.4 Ml Syr) 40 mg SQ DAILY [facility] Stop: 05/18/20 08:59 Last Admin: 04/27/20 08:39 Dose: 40 mg Documented by: Enteral Nutritional Formula (Fibersource Hn 1.2 Fredo 1000 Ml Bag) 1,000 ml GT TODAY@1300 [facility]; Protocol Stop: 05/18/20 12:59 Last Admin: 04/26/20 17:28 Dose: 1,000 ml Documented by: Finasteride (Finasteride 5 Mg Tab) 5 mg PO DAILY [facility] Stop: 05/18/20 08:59 Last Admin: 04/27/20 09:46 Dose: 5 mg Documented by: Glucagon (Glucagon For Inj 1 Mg Vial) 1 mg IM UD PRN; Protocol PRN Reason: Hypoglycemia Protocol Stop: 05/27/20 00:44 Glucose (Glucose 40% Gel 15 Gm Tube) 15 - 30 gm PO UD PRN; Protocol PRN Reason: Hypoglycemia Protocol Stop: 05/27/20 00:44 Glucose (Glucose 10 Tabs/Tube) 4 - 8 tabs PO UD PRN; Protocol PRN Reason: Hypoglycemia Protocol Stop: 05/27/20 00:44 Dexamethasone Sodium Phosphate (6 mg/ Syringe) 1.5 mls @ 1 mls/min IV DAILY [facility] Stop: 05/18/20 08:59 Last Admin: 04/27/20 08:40 Dose: 1 mls/min Documented by: Insulin Aspart (Insulin Aspart 100 Units/Ml 3 Ml Pen) 0 units SC Q4 [facility] Stop: 05/24/20 15:59 Last Admin: 04/27/20 09:29 Dose: 11 units Documented by: Insulin Glargine (Insulin Glargine Solostar 100 Units/Ml 3 Ml Pen) 35 units SC DAILY [facility]; Protocol Stop: 05/25/20 08:59 Last Admin: 04/27/20 09:30 Dose: 35 units Documented by: Lactobacillus Acidophilus (Lactobacillus Acidophilus 1 Gm Pack) 1 gm PO BIDM [facility] Stop: 05/22/20 16:59 Last Admin: 04/27/20 08:40 Dose: 1 gm Documented by: Metoprolol Tartrate (Metoprolol Tartrate 50 Mg Tab) 50 mg PO BID [facility] Stop: 05/26/20 20:59 Last Admin: 04/27/20 08:40 Dose: 50 mg Documented by: Miscellaneous (Carbohydrates For Hypoglycemia ) 15 - 30 gm PO UD PRN PRN Reason: Hypoglycemia Treatment Stop: 05/27/20 00:44 Miscellaneous Information (Pharmacy Glycemic Mgmt Consult) 1 ea N/A UD PRN PRN Reason: Consult Stop: 05/24/20 11:54 Nitroglycerin (Nitroglycerin Sl 0.4 Mg/Tab Tab) 0.4 mg SL UD PRN PRN Reason: Chest Pain Stop: 05/18/20 07:31 Ondansetron HCl (Ondansetron Inj 2 Mg/Ml 2 Ml Vial) 4 mg IV Q6H PRN PRN Reason: Nausea Stop: 05/18/20 07:31 Petrolatum (Butt Paste (Zinc Oxide 16%) 171 Appln/57 Gm Jar) 1 appln EXT Q8H PRN PRN Reason: anal irritation Stop: 05/26/20 14:14 Sterile Water (Tube Feeding Water Flush) 200 ml GT Q6H [facility] Stop: 05/19/20 14:59 Last Admin: 04/27/20 08:43 Dose: 200 ml Documented by: Tamsulosin HCl (Tamsulosin Hcl 0.4 Mg Cap) 0.4 mg PO HS [facility] Stop: 05/18/20 20:59 Umeclidinium/Vilanterol (Umeclidinium/Vilanterol 62.5/25mcg 7 Puffs/Inhaler) 1 puffs INH DAILY [facility] Stop: 05/19/20 08:59 Last Admin: 04/27/20 08:39 Dose: 1 puffs Documented by: Vitamin D (Cholecalciferol 1,000 Units 25 Mcg Tab) 2,000 units PEG QAM [facility] Stop: 05/18/20 09:59 Last Admin: 04/27/20 08:38 Dose: 2,000 units Documented by: (1) COPD (chronic obstructive pulmonary disease) COPD type: unspecified COPD Qualified Code(s): J44.9 - Chronic obstructive pulmonary disease, unspecified
[2020-04-27] MEDS: FIBERSOURCE HN 1.2 CAL 1000 ML BAG GT SCH (14:32)
[2020-04-27] MEDS ORDERED: LORazepam 0.5 MG TAB PO PRN (15:39)
[2020-04-27] MEDS: ZOLPIDEM TARTRATE 5 MG TAB PO PRN (20:42)
[2020-04-27] MEDS: TAMSULOSIN HCL 0.4 MG CAP PO SCH (20:48)
[2020-04-28] MEDS: INSULIN ASPART 100 UNITS/ML 3 ML PEN SC SCH ×6 (00:12→21:17)
[2020-04-28] MEDS: TUBE FEEDING WATER FLUSH GT SCH ×4 (03:10→21:02)
[2020-04-28] MEDS: LACTOBACILLUS ACIDOPHILUS 1 GM PACK PO SCH ×2 (08:18→17:00)
[2020-04-28] MEDS: FINASTERIDE 5 MG TAB PO SCH (08:22)
[2020-04-28] MEDS: METOPROLOL TARTRATE 50 MG TAB PO SCH ×2 (08:22→20:59)
[2020-04-28] MEDS: CHOLECALCIFEROL 1,000 UNITS 25 MCG TAB PEG SCH (08:22)
[2020-04-28] MEDS: ENOXAPARIN INJ 40 MG/0.4 ML SYR SQ SCH (08:23)
[2020-04-28] MEDS: INSULIN GLARGINE SOLOSTAR 100 UNITS/ML 3 ML PEN SC SCH (09:35)
[2020-04-28] MEDS: ASPIRIN 81 MG CHEW PEG SCH (09:36)
[2020-04-28] MEDS: UMECLIDINIUM/VILANTEROL 62.5/25MCG 7 PUFFS/INHALER INH SCH (11:11)
--- NOTE | 2020-04-28 11:19 | Pharmacy Report ---
Pharmacy Glycemic Short Note 2 - Date of Service April 28, 2020 - Glycemic Short BSG Results (Last 24 hours): 04/27/20 04/27/20 04/27/20 12:52 16:19 19:22 POC Glucose 103 H 91 149 H 04/27/20 04/28/20 04/28/20 23:58 04:00 07:47 POC Glucose 105 H 113 H 194 H OUTPATIENT ANTIDIABETIC REGIMEN: * Glipizide 5mg PO daily * A1c = 6.8% on 04/19/20 ASSESSMENT: 04/28: * Patient received a total of 82 units of insulin yesterday * 35 units of basal + 47 units of bolus * BSGs improved: [phone] mg/dL * Continues on tube feeds * Lantus and Novolog parameters were empirically reduced this morning as patient will no longer be receiving dexamethasone and is not a steroid taper * Monitor trend throughout day- may tighten/increase as needed 04/27: * Mr. Davenport received a total of 78 units of insulin yesterday * 35 units basal + 43 units bolus * BSGs were uncontrolled: [phone] mg/dL * Second shift pharmacist spoke with provider last evening and plan is leave basal dose unchanged and tighten CF/CR * Patient had an episode of asymptomatic hypoglycemia last evening requiring a full amp of D50% to improve BSG * Tube feeds found to be leaking from site so this likely accounts for reason behind hypoglycemia. Patient was unsure how long tube feeds had been leaking. * Fasting BSG this AM was 173 mg/dL - above goal but improved * No change to Lantus per provider * Today is Day #12/07 of IV Dexamethasone. Provider may start patient on steroid taper following this. * Tightened CF/CR last evening. Will tighten goal range to 110-140 mg/dL today to provide more Novolog. * Lunchtime BSG dropped significantly indicating too tight of carb coverage. Will loosen CF/CR very slightly. 04/26: * Mr. Davenport received a total of 62 units of insulin yesterday * 30 units basal + 32 units bolus * BSGs acceptable yesterday: [phone] mg/dL * Fasting BSG this AM was improved but still above goal at 187 mg/dL * Will increase Lantus by 15% this morning * Patient remains on Dexamethasone 6 mg IV daily and Fibersource at 60 mL/hr which provides 38 grams of dextrose over 4 hours. * Given postprandial elevations in BSGs, will tighten CF and CR today PLAN FOR INPATIENT GLYCEMIC CONTROL: * Hold outpatient oral diabetes medications * Basal insulin - reduced * Lantus 20 units SC daily * Bolus insulin - loosened * NovoLog per scale Q4hrs * Goal Range: Low 110 mg/dL - High 140 mg/dL * Correction Factor: 20 mg/dL/unit * Nutritional / Prandial insulin per carb ratio of 1 unit per 8 grams CHO consumed * This CHO ratio will cover the amount of CHO delivered by tube feeds over 4 hours. See MAR for details. PLAN FOR DISCHARGE: * TBD. A1c is in goal range with glipizide. Likely ok to continue unless steroids or tube feeds are continued at de and then dose adjustment +/- insulin may be needed.
--- NOTE | 2020-04-28 15:21 | Hospitalist Progress Note ---
Date of Service April 28, 2020 Assessment & Plan (1) COVID-19: (2) COPD (chronic obstructive pulmonary disease): (3) History of tobacco abuse: (4) History of head and neck cancer: (5) Acute respiratory failure with hypoxia: Sepsis onadmission This morning again on 4 L of nasal cannula. Remains afebrile. Most recent WBC is within normal limit. Continues to have productive cough. Have completed 10 days of Decadron therapy. Complete 3 days of therapy with ceftriaxone for UTI. Appreciate pulmonary medicine input. CT of the lung showed right middle lobe lung mass and right upper lobe lung nodules with paratracheal and hilar lymphadenopathy which is suspicious for metastatic disease considering history versus primary pulmonary malignancy. Patient will need to follow-up as an outpatient with pulmonary medicine and oncology. Bilateral common iliac artery aneurysms. Will need outpatient vascular follow- up. Did speak with the daughter today. Believe overall he has poor prognosis. Likely has metastatic cancer. Will need outpatient evaluation by pulmonary. Likely needs hospice services. (6) INNA (acute kidney injury): Resolved Continue with water flushes/tube feeding. Monitor ins and outs. Avoid any nephrotoxic agents. (7) Hypotension: Resolved now. Continue with Lopressor 25 mg twice daily. Continue holding amlodipine and enalapril. (8) Uses feeding tube: Continue with tube feeds. Patient is moderate to severely malnourished. Patient is on board. Patient needs feeding supplies at discharge. Discharge recommedations: "bolus TF regimen: 1 carton (250 ml) of Fibersource HN 6x/day (sample schedule: 0700, 1000, 1300, 1600, 1900, 2200). Adjust schedule per pt./dtr preferences. TF would provide 1500 ml TV, 1800 kcal, 81 g protein & 1212 ml free H2O. Provide 60 ml H2O flushes before & after each TF bolus (720 ml total H2O flushes & 1932 ml total free H2O/day. Pt's dtr. should check his wt once weekly via standing scale at home. If wt trends down, she can increase his bolus to 275 ml, 6x/day. Pt's dtr should also monitor for s/s of DHN & increase his free H2O flushes PRN. (9) Diabetes: Lantus was increased to 20U daily for better control since patient is on dexamethasone Glycemic management as per pharmacy. (10) Acute UTI (urinary tract infection): Urinalysis showing positive nitrite/esterase/pyuria Cultures are growing Klebsiella. Completed 8 days of therapy with ceftriaxone (11) Elevated troponin: Patient denies any chest pain. Continue with aspirin. Thrombocytopenia - DVT prophylaxis-Lovenox PT/OT evaluation noted. Patient was recommended inpatient rehab but he wants to go home. Spoke with the daughter again today who stated that she does not want him to go to a [place] facility. She is making all the necessary arrangements and wants to come home tomorrow. Admission and Anticipated Discharge Date Admission Date: April 18, 2020 Subjective Doing okay this morning. Was again hypoxic this morning and placed on 4 L of nasal cannula he awake and alert. Had breakfast reports he is having trouble urinating. No chest pain or shortness of breath. Denies any nausea or vomiting. Has any abdominal pain. Denies any dysuria or increasing frequency but does report that he feels like urinating but nothing comes out. Review of Systems Review of Systems: All systems reviewed & are unremarkable except as noted in HPI & below Physical Exam Physical Exam: General: A&Ox3. Chronically ill-appearing cachectic gentleman HENT: NCAT, MMM, EOMI Eyes: PERRLA Neck: Supple, normal range of motion CVS: normal rate and rhythm Resp: b/l coarse breath sounds Abdomen: Soft, distended nontender, PEG tube in place without any active discharge Extremities: No c/c/e Neuro: No gross focal deficits appreciated Skin: warm and dry, no rashes/lesions/errythema MSK: normal ROM, no joint swelling/erythema Results & Data Results & Data ([facility]) Vital Signs (Past 12 Hours) Vital Signs Temp Pulse Resp BP Pulse Ox 04/28/20 12:53 90 18 91 04/28/20 12:28 89 L 04/28/20 12:26 36.5 C 102 H 22 113/68 04/28/20 07:54 36.5 C 103 H 20 125/70 92 (1) COPD (chronic obstructive pulmonary disease) COPD type: unspecified COPD Qualified Code(s): J44.9 - Chronic obstructive pulmonary disease, unspecified (2) Hypotension Hypotension type: unspecified hypotension type Qualified Code(s): I95.9 - Hypotension, unspecified
[2020-04-28] MEDS: TAMSULOSIN HCL 0.4 MG CAP PO SCH (21:01)
[2020-04-29] MEDS: INSULIN ASPART 100 UNITS/ML 3 ML PEN SC SCH ×6 (00:31→20:35)
[2020-04-29] MEDS: FIBERSOURCE HN 1.2 CAL 1000 ML BAG GT SCH ×2 (02:20→14:45)
[2020-04-29] MEDS: TUBE FEEDING WATER FLUSH GT SCH ×4 (02:22→20:37)
[2020-04-29 07:31] LABS: Basophils # (auto) 0.02 K/uL (0-0.2); Basophils % (auto) 0.2 %; Eosinophils # (auto) 0.04 K/uL (0-0.5); Eosinophils % (auto) 0.3 %; Hematocrit (blood only) 42.9 % (42-52); Hemoglobin 14.5 g/dL (14.0-18.0); Immature Granulocytes # (auto) 0.34 K/uL (0.00-0.02); Lymphocytes # (auto) 1.16 K/uL (1.2-3.4); Lymphocytes % (auto) 10.1 %; Mean Corpuscular Hgb Conc 33.8 g/dL (32-36); Mean Corpuscular Volume 91.9 fL (80-100); Mean Platelet Volume 10.8 fL (7.4-10.4); Monocytes # (auto) 0.79 K/uL (0.11-0.59); Monocytes % (auto) 6.9 %; Neutrophils # (auto) 9.17 K/uL (1.4-6.5); Neutrophils % (auto) 79.5 %; Nucleated RBC # (auto) 0.24 K/uL (0-0); Nucleated RBC % (auto) 2.1 %; Platelet Count 281 K/uL (130-400); RDW Coefficient of Variation 15.6 % (11.5-14.5); RDW Standard Deviation 50.5 fL (36.4-46.3); Red Blood Count 4.67 M/uL (4.7-6.1); White Blood Count 11.52 K/uL (4.8-10.8)
[2020-04-29 08:00] LABS: RBC Morphology Unremarkable
[2020-04-29 08:04] LABS: Albumin Level 1.8 gm/dl (3.4-5.0); BUN Creatinine Ratio 32.5 (10-20); Calcium 8.1 mg/dl (8.5-10.1); Creatinine Clr Calc Pharmacy 66.4 ml/min; Est GFR (African American) 102.2; Est GFR (Non-African American) 88.1; Potassium 3.9 mmol/L (3.5-5.1)
[2020-04-29 08:07] LABS: Albumin Globulin Ratio 0.5 (0.9-2); Bilirubin,Total 0.9 mg/dl (0.2-1); Globulin 3.8 gm/dl (2.5-4.0); Total Protein 5.6 gm/dl (6.4-8.2)
[2020-04-29] MEDS: FINASTERIDE 5 MG TAB PO SCH (08:09)
[2020-04-29] MEDS: CHOLECALCIFEROL 1,000 UNITS 25 MCG TAB PEG SCH (08:09)
[2020-04-29] MEDS: LACTOBACILLUS ACIDOPHILUS 1 GM PACK PO SCH ×2 (08:09→16:13)
[2020-04-29] MEDS: METOPROLOL TARTRATE 50 MG TAB PO SCH ×2 (08:10→20:36)
[2020-04-29] MEDS: UMECLIDINIUM/VILANTEROL 62.5/25MCG 7 PUFFS/INHALER INH SCH (08:11)
[2020-04-29] MEDS: ENOXAPARIN INJ 40 MG/0.4 ML SYR SQ SCH (08:12)
[2020-04-29] MEDS: INSULIN GLARGINE SOLOSTAR 100 UNITS/ML 3 ML PEN SC SCH (08:13)
[2020-04-29] MEDS: ASPIRIN 81 MG CHEW PEG SCH (08:17)
[2020-04-29] MEDS ORDERED: INSULIN GLARGINE SOLOSTAR 100 UNITS/ML 3 ML PEN SC SCH (12:00)
--- NOTE | 2020-04-29 12:54 | Pharmacy Report ---
Pharmacy Glycemic Short Note 2 - Date of Service April 29, 2020 - Glycemic Short BSG Results (Last 24 hours): 04/28/20 04/28/20 04/29/20 16:56 20:58 00:29 Glucose POC Glucose 103 H 104 H 90 04/29/20 04/29/20 04/29/20 04:53 06:56 08:07 Glucose 198 H POC Glucose 160 H 198 H 04/29/20 12:37 Glucose POC Glucose 114 H OUTPATIENT ANTIDIABETIC REGIMEN: * Glipizide 5mg PO daily * A1c = 6.8% on 04/19/20 ASSESSMENT: 04/29: * Patient received a total of 50 units of insulin yesterday * 20 units of basal * 30 units of bolus * Insulin requirements significantly decreased after last dose of dexamethasone on 04/28 * Pt continues on fibersource tube feeds * Fasting BSG continues to trend upward (not a true fasting since patient has continuous tube feeds infusing), therefore Lantus will be increased. 04/28: * Patient received a total of 82 units of insulin yesterday * 35 units of basal + 47 units of bolus * BSGs improved: [phone] mg/dL * Continues on tube feeds * Lantus and Novolog parameters were empirically reduced this morning as patient will no longer be receiving dexamethasone and is not a steroid taper * Monitor trend throughout day- may tighten/increase as needed 04/27: * Mr. Davenport received a total of 78 units of insulin yesterday * 35 units basal + 43 units bolus * BSGs were uncontrolled: [phone] mg/dL * Second shift pharmacist spoke with provider last evening and plan is leave basal dose unchanged and tighten CF/CR * Patient had an episode of asymptomatic hypoglycemia last evening requiring a full amp of D50% to improve BSG * Tube feeds found to be leaking from site so this likely accounts for reason behind hypoglycemia. Patient was unsure how long tube feeds had been leaking. * Fasting BSG this AM was 173 mg/dL - above goal but improved * No change to Lantus per provider * Today is Day #10/10 of IV Dexamethasone. Provider may start patient on steroid taper following this. * Tightened CF/CR last evening. Will tighten goal range to 110-140 mg/dL today to provide more Novolog. * Lunchtime BSG dropped significantly indicating too tight of carb coverage. Will loosen CF/CR very slightly. PLAN FOR INPATIENT GLYCEMIC CONTROL: * Hold outpatient oral diabetes medications * Basal insulin - increase * Lantus 25 units SC daily * Bolus insulin - no change * NovoLog per scale Q4hrs * Goal Range: Low 110 mg/dL - High 140 mg/dL * Correction Factor: 20 mg/dL/unit * Nutritional / Prandial insulin per carb ratio of 1 unit per 8 grams CHO consumed * This CHO ratio will cover the amount of CHO delivered by tube feeds over 4 hours. See MAR for details. PLAN FOR DISCHARGE: * TBD. A1c is in goal range with glipizide. Likely ok to continue unless steroids or tube feeds are continued at dc and then dose adjustment +/- insulin may be needed.
--- NOTE | 2020-04-29 14:28 | Palliative Care Consultation ---
Date of Consultation April 29, 2020 Assessment & Plan (1) Dyspnea: Discussed use of medication to relieve air hunger. He does not want medication at this time. His daughter had asked about oxygen for shortness of breath. That will be set up for him at home. We did talk about the lack of co rrelation between oxygen saturation and dyspnea, as well as other ways to relieve air hunger at home. (2) Palliative care encounter: I spoke with Mickey about his current status. He asked me what the plan was for him moving forward. Initially, I asked him what his understanding was and he discussed the pneumonia and covid infection. I asked him if he would want to have information about his health and prognosis or would prefer that I speak with his daughter, Tamia. He stated that he wanted to know. We reviewed lung mass and concern for malignancy. He was, not surprisingly, upset about this and stated that "I never expected this to happen". He then told me that he wanted to go home. We reviewed option of going home with support at [facility] for his daughter to care for him and focus on his comfort for his remaining time. He asked me several times how soon he could go home. I spoke with Tamia on the phone. She confirms that goal is hospice care at home. Discussed with case management who will work on plan for discharge. (3) Pneumonia due to COVID-19 virus: (4) Sepsis: (5) Acute respiratory failure with hypoxia: (6) History of head and neck cancer: (7) Lung nodules: (8) COPD (chronic obstructive pulmonary disease): COPD type: unspecified COPD Qualified Code(s): J44.9 - Chronic obstructive pulmonary disease, unspecified History of Present Illness Reason for Consultation: goals of care Requesting Physician: Dr. Nesbitt Attending Physician: Juventino Nesbitt MD History of Present Illness 75 yo gentleman who was diagnosed with cancer of the tongue in 2003. He had surgery and radiation treatment and has been on enteral feeds via gastric tube. He had been living with his daughter and had been doing ok until he was admitted with covid pneumonia and acute hypoxic respiratory failure on April 18. Workup showed a right lung mass and CT revealed 2.9 cm right middle lobe mass with right upper lobe nodule and paratracheal and hilar adenopathy. He is not currently a candidate for bronchoscopy or further workup and his daughter feels that he would want to return home with hospice care. Mickey is awake and alert. He complains of some mild dyspnea and has had increasing O2 requirements with hypoxia. Allergies Allergy/AdvReac Type Severity Reaction Status Date / Time No Known Allergies Allergy Verified 04/18/20 01:52 Home Medications Medication Instructions Recorded Confirmed Type amlodipine 10 mg PO QAM 05/18/18 04/18/20 History aspirin 81 mg PO QAM 05/18/18 04/18/20 History cholecalciferol (vitamin D3) 2,000 unit PO QAM 05/18/18 04/18/20 History [Vitamin D3] enalapril maleate 10 mg PO BID 05/18/18 04/18/20 History glipizide 5 mg PO DAILY 05/18/18 04/18/20 History metoprolol tartrate 50 mg PO BID 05/18/18 04/18/20 History tamsulosin 0.4 mg PO HS 05/18/18 04/18/20 History albuterol sulfate 2 puff INHALATION QID PRN 05/27/19 04/18/20 History albuterol sulfate 2.5 mg INH Q6H PRN #180 ml 05/27/19 04/18/20 Rx finasteride 5 mg PO DAILY 04/18/20 04/18/20 History Patient History Medical History Acute respiratory failure with hypoxia COPD (chronic obstructive pulmonary disease) Diabetes Family history non-contributory History of head and neck cancer History of tobacco abuse Hypertension Lung nodules Tongue cancer Surgical History No pertinent past surgical history Family History Other Family history non-contributory Social History Smoking Status: Never smoker Tobacco Type: Cigarettes Hx Alcohol Use: No Hx Substance Use: No Preferred Language: Kitt[place] Communication Ability: Effective [place] Required: No Beliefs That Will Affect Care: None Current Living Situation: Family Feels Safe at Home: Yes Safety Concerns: Feels Safe At This Time Assistive Devices: Glasses and Oxygen - Continuous Review of Systems Review of Systems: [place] Symptom Assessment Scale Pain 0/3 Dyspnea 1/3 Nausea 0/3 Anorexia 2/3 Drowsiness 0/3 Anxiety 2/3 Palliative Performance Score 30% Physical Exam Constitutional: + thin and + frail appearing ENMT: Mouth: + dry oral mucous membranes Respiratory: + uses accessory muscles and + cough Gastrointestinal (Abdomen): Inspection/Auscultation: abdomen not distended Musculoskeletal: Extremities: + muscle atrophy Skin: warm and dry Neurologic: no focal motor deficits Psychiatric: Orientation: alert and oriented x 3 PG Care Time/CCT Total # of Minutes Spent Total Time Spent with Patient: Total time spent is greater than 50% in coordination of care (as documented) at patient's floor/unit and/or counseling patient:total time spent 65 minutes with more than 50% of time spent on symptom management, prognosis, goals of care and coordination of care. Coding Level of Care Code 81367 Inpt Consult Level 3 Diagnoses Dyspnea R06.00 Palliative care encounter Z51.5 Pneumonia due to COVID-19 virus U07.1; J12.82 Sepsis A41.9 Acute respiratory failure with hypoxia J96.01 History of head and neck cancer Z85.89 Lung nodules R91.8 COPD (chronic obstructive pulmonary disease) J44.9 COPD type: unspecified COPD
--- NOTE | 2020-04-29 16:14 | Hospitalist Progress Note ---
Date of Service April 29, 2020 Assessment & Plan (1) Acute respiratory failure with hypoxia: Sepsis on admission This morning again on 4 L of nasal cannula. Remains afebrile. Most recent WBC is within normal limit. Continues to have productive cough. Have completed 10 days of Decadron therapy. Complete 8 days of therapy with ceftriaxone for UTI. Appreciate pulmonary medicine input. CT of the lung showed right middle lobe lung mass and right upper lobe lung nodules with paratracheal and hilar lymphadenopathy which is suspicious for metastatic disease considering history versus primary pulmonary malignancy. Patient will need to follow-up as an outpatient with pulmonary medicine and oncology. Bilateral common iliac artery aneurysms. Will need outpatient vascular follow- up. Overall patient has poor prognosis. Given his overall new findings with lung mass and lymphadenopathy, concern is for primary versus metastatic cancer. Spoke with his daughter yesterday and she was okay with proceeding with hospice services patient is a 5 L of nasal cannula today. Overall he has poor prognosis along with malnourishment. Palliative medicine has been consulted. Family has decided to proceed with hospice measures management is working on hospice agency. (2) COVID-19: (3) COPD (chronic obstructive pulmonary disease): No active wheezing or evidence of acute exacerbation. Cont supportive care. Bronchodilators as needed. (4) History of tobacco abuse: (5) History of head and neck cancer: PEG tube placed 4 years ago. (6) INNA (acute kidney injury): Resolved Continue with water flushes/tube feeding. Monitor ins and outs. Avoid any nephrotoxic agents. (7) Hypotension: Resolved now. Continue with Lopressor 25 mg twice daily. Continue holding amlodipine and enalapril. (8) Uses feeding tube: Continue with tube feeds. Patient is moderate to severely malnourished. Patient is on board. Patient needs feeding supplies at discharge. Discharge recommedations: "bolus TF regimen: 1 carton (250 ml) of Fibersource HN 6x/day (sample schedule: 0700, 1000, 1300, 1600, 1900, 2200). Adjust schedule per pt./dtr preferences. TF would provide 1500 ml TV, 1800 kcal, 81 g protein & 1212 ml free H2O. Provide 60 ml H2O flushes before & after each TF bolus (720 ml total H2O flushes & 1932 ml total free H2O/day. Pt's dtr. should check his wt once weekly via standing scale at home. If wt trends down, she can increase his bolus to 275 ml, 6x/day. Pt's dtr should also monitor for s/s of DHN & increase his free H2O flushes PRN. (9) Diabetes: Lantus was increased to 20U daily for better control since patient is on dexamethasone Glycemic management as per pharmacy. (10) Acute UTI (urinary tract infection): Urinalysis showing positive nitrite/esterase/pyuria Cultures are growing Klebsiella. Completed 8 days of therapy with ceftriaxone (11) Elevated troponin: Patient denies any chest pain. Continue with aspirin. Thrombocytopenia - DVT prophylaxis-Lovenox PT/OT evaluation noted. Patient was recommended inpatient rehab but he wants to go home. Spoke with the daughter again today who stated that she does not want him to go to a [place] care facility. She is making all the necessary arrangements and wants to come home tomorrow. Admission and Anticipated Discharge Date Admission Date: April 18, 2020 Subjective Patient was again placed on 5 L of nasal cannula this morning. He did not appear to be in any distress. Not answer most of my questions noted his head yes or no. Review of Systems Review of Systems: All systems reviewed & are unremarkable except as noted in HPI & below Physical Exam Physical Exam: General: A&Ox3. Chronically ill-appearing cachectic gentleman HENT: NCAT, MMM, EOMI Eyes: PERRLA Neck: Supple, normal range of motion CVS: normal rate and rhythm Resp: b/l coarse breath sounds Abdomen: Soft, distended nontender, PEG tube in place without any active discharge Extremities: No c/c/e Neuro: No gross focal deficits appreciated Skin: warm and dry, no rashes/lesions/errythema MSK: normal ROM, no joint swelling/erythema (1) COPD (chronic obstructive pulmonary disease) COPD type: unspecified COPD Qualified Code(s): J44.9 - Chronic obstructive pulmonary disease, unspecified (2) Hypotension Hypotension type: unspecified hypotension type Qualified Code(s): I95.9 - Hypotension, unspecified
[2020-04-29] MEDS: ZOLPIDEM TARTRATE 5 MG TAB PO PRN (20:35)
[2020-04-29] MEDS: BUTT PASTE (ZINC OXIDE 16%) 171 APPLN/57 GM JAR EXT PRN (20:35)
[2020-04-29] MEDS: TAMSULOSIN HCL 0.4 MG CAP PO SCH (20:36)
[2020-04-30] MEDS: INSULIN ASPART 100 UNITS/ML 3 ML PEN SC SCH ×5 (00:26→17:05)
[2020-04-30] MEDS: TUBE FEEDING WATER FLUSH GT SCH ×3 (02:14→14:21)
[2020-04-30] MEDS: FIBERSOURCE HN 1.2 CAL 1000 ML BAG GT SCH ×2 (05:53→05:54)
[2020-04-30] MEDS: BUTT PASTE (ZINC OXIDE 16%) 171 APPLN/57 GM JAR EXT PRN (05:54)
[2020-04-30] MEDS: LACTOBACILLUS ACIDOPHILUS 1 GM PACK PO SCH (08:43)
[2020-04-30] MEDS: UMECLIDINIUM/VILANTEROL 62.5/25MCG 7 PUFFS/INHALER INH SCH (08:43)
[2020-04-30] MEDS: METOPROLOL TARTRATE 50 MG TAB PO SCH (08:44)
[2020-04-30] MEDS: ENOXAPARIN INJ 40 MG/0.4 ML SYR SQ SCH (08:45)
[2020-04-30] MEDS ORDERED: INSULIN GLARGINE SOLOSTAR 100 UNITS/ML 3 ML PEN SC SCH ×2 (09:00)
--- NOTE | 2020-04-30 09:47 | Discharge Summary ---
Date of Service April 30, 2020 Admission HPI Per Admitting Provider 75-year-old male with past medical history significant for type 2 diabetes, asthma, hypertension, history of tongue cancer, status post surgery and radiation, status post gastrostomy, mild depression, who lives with his daughter, ambulates with a walker. EMS was called because the patient had chills and shakiness and when the EMS arrived, he was hypotensive. With the fluid bolus, blood pressure improved and he was saturating 82% and with oxygen saturation improved. In the ER when he came in, blood pressure was in the 90s. With the fluids, blood pressure improved. Currently, he was tapered off of oxygen and saturating 93% on room air. He has chronic cough with phlegm, which is nothing new. Denies any fevers. Just is feeling cold. Denies any shortness of breath, no chest pain. No headache, no blurred vision, no runny nose, no sore throat. He takes all his pills from the gastrostomy tube and also is on tube feedings. He says he is somewhat constipated. No abdominal pain, no nausea. Normal bladder movements. No rash. Currently resting comfortably and hemodynamically stable. Denies any COVID exposure. No one is sick in the family.Because of surgery for his mouth cancer difficult to understand him. Admission Exam Per Admitting Provider PHYSICAL EXAMINATION: GENERAL: The patient is of moderate build, not in acute distress. VITAL SIGNS: Temperature 36.4, pulse when he came was in the 90s, currently 88, blood pressure when he came in was 95/54 currently 113/52, oxygen 93% on room air. 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 Right eye pupil is reactive to light. Oral mucosa somewhat dry. NECK: No JVD, no neck masses. CARDIOVASCULAR: S1, S2 heard, regular rate and rhythm, no murmur, no gallop. RESPIRATORY SYSTEM: Normal AP diameter. No accessory muscle use. No wheezing, no crackles. ABDOMEN: Soft, bowel sounds present. Gastrostomy tube seen. Gastrostomy tube site slightly excoriation of the skin, but no drainage seen. EXTREMITIES: No edema, no erythema. CENTRAL NERVOUS SYSTEM: Nonfocal. Principal Diagnosis (1) Sepsis (2) COVID-19: Acute respiratory failure with hypoxia: (3) COPD (4) History of tobacco abuse: (5) History of head and neck cancer: (6) INNA (acute kidney injury): (7) Hypotension: (8) Uses feeding tube: (9) Diabetes: (10) Acute UTI (urinary tract infection): (11) Elevated troponin: (12) Thrombocytopenia Discharge Exam ROS-No Headache, No Visual Changes, No Nausea, No Vomiting, No Fever, No Chills, No Neck Pain or Stiffness, No Chest Pain, No Palpitations, No SOB, No HAY, No Cough, No Sputum, No Wheezing, No Abdominal Pain, No Diarrhea, No Hematemesis, No Hemoptysis, No Unexpected Weight Loss, No Flank pain, No Melena, No Hematochezia, No Frequency, No Urgency, No Burning, No Hematuria, No Rashes, No Diaphoresis. Appetite is Normal Physical Exam Gen-AAO x 3, NAD, Afebrile, Cachectic Head-NCAT, Blind OS, No Posterior Pharyngeal Erythema Neck-Supple, No JVD, No Thyromegaly, No Masses, No LAD, No Bruits Lungs-Clear to Auscultation Bilaterally, No Rales, No Rhonchi, No Wheezing, No Crepitus Chest-No S4, +S1, +S2, No S3, No Murmurs, No Rubs, No Gallops, No Ectopy Abdomen-Soft, Bowel Sounds Present, Non Tender, Non Distended, No Hepatomegaly, No Splenomegaly, No Palpable Masses, No Rebound, No Rigidity, No Guarding Musculoskeletal-Full Range of Motion Bilaterally, No CVAT Extremities-No Cyanosis, No Clubbing, No Edema Nuero-Cranial Nerves II-XII grossly intact, Motor WNL, DTRs WNL, Strength WNL, Non Focal Psych-Normal Mood Discharge Data Allergies Allergy/AdvReac Type Severity Reaction Status Date / Time No Known Allergies Allergy Verified 04/18/20 01:52 Consultations 04/18/20 04:39 ED Decision to Admit Stat 04/18/20 07:32 Consult Case Management - Discharge Planning Routine 04/18/20 08:00 Consult Gastroenterology Routine 04/18/20 08:11 Consult Pulmonology Routine 04/29/20 08:41 Consult Palliative Care Routine Ordered Studies 04/18/20 02:13 CT abd pelvis IV con only Urgent CT angio chest PE protocol Urgent Current Diagnoses Sepsis, unspecified organism (04/18/20) Type 2 diabetes mellitus without complications (04/18/20) Unspecified protein-calorie malnutrition (04/18/20) Hypotension, unspecified (04/18/20) Pneumonia due to coronavirus disease 2019 (04/18/20) Chronic obstructive pulmonary disease, unspecified (04/18/20) Acute respiratory failure with hypoxia (04/18/20) Acute kidney failure, unspecified (04/18/20) Urinary tract infection, site not specified (04/18/20) Tachycardia, unspecified (04/18/20) Dyspnea, unspecified (04/18/20) Abnormal levels of other serum enzymes (04/18/20) Other specified abnormalities of plasma proteins (04/18/20) Other nonspecific abnormal finding of lung field (04/18/20) COVID-19 (04/18/20) Encounter for prophylactic measures, unspecified (04/18/20) Encounter for palliative care (04/18/20) Personal history of malignant neoplasm of other organs and systems (04/18/20) Personal history of nicotine dependence (04/18/20) Presence of other specified devices (04/18/20) Allergies No Known Allergies Allergy (Verified 04/18/20 01:52) Height/Weight/Isolation Height 5 ft 10 in Weight 57.5 kg Isolation Type COVID Precautions,Airborne Precautions Chemistry 04/29/20 06:56 Sodium 137 Potassium 3.9 Chloride 101 Carbon Dioxide 30 Anion Gap 6.0 BUN 25 H Creatinine 0.77 Glucose 198 H Hospital Course (1) Acute respiratory failure with hypoxia: Sepsis on admission Has completed 10 days of Decadron therapy. Completed 8 days of therapy with ceftriaxone for UTI. CT of the lung showed right middle lobe lung mass and right upper lobe lung nodules with paratracheal and hilar lymphadenopathy which is suspicious for metastatic disease considering history versus primary pulmonary malignancy. DC today with home hospice c/o daughter Bilateral common iliac artery aneurysms. Patient has grave prognosis. Given his overall new findings with lung mass and lymphadenopathy, concern is for primary versus metastatic cancer. Partner poke with his daughter yesterday and she was okay with proceeding with hospice services patient. Overall he has poor prognosis along with malnourishment. Palliative medicine has been consulted. Family has decided to proceed with hospice measures management. (2) COVID-19: (3) COPD (chronic obstructive pulmonary disease): No active wheezing or evidence of acute exacerbation. Cont supportive care. Bronchodilators as needed. (4) History of tobacco abuse: (5) History of head and neck cancer: PEG tube placed 4 years ago. (6) INNA (acute kidney injury): Resolved Continue with water flushes/tube feeding. Monitor ins and outs. Avoid any nephrotoxic agents. (7) Hypotension: Resolved now. Continue with Lopressor 25 mg twice daily. Continue holding amlodipine and enalapril. (8) Uses feeding tube: Continue with tube feeds. Patient is moderate to severely malnourished. Patient is on board. Patient needs feeding supplies at discharge. Discharge recommedations: "bolus TF regimen: 1 carton (250 ml) of Fibersource HN 6x/day (sample schedule: 0700, 1000, 1300, 1600, 1900, 2200). Adjust schedule per pt./dtr preferences. TF would provide 1500 ml TV, 1800 kcal, 81 g protein & 1212 ml free H2O. Provide 60 ml H2O flushes before & after each TF bolus (720 ml total H2O flushes & 1932 ml total free H2O/day. Pt's dtr. should check his wt once weekly via standing scale at home. If wt trends down, she can increase his bolus to 275 ml, 6x/day. Pt's dtr should also monitor for s/s of DHN & increase his free H2O flushes PRN. (9) Diabetes: Lantus was increased to 20U daily for better control since patient is on dexamethasone Glycemic management as per pharmacy. (10) Acute UTI (urinary tract infection): Urinalysis showing positive nitrite/esterase/pyuria Cultures are growing Klebsiella. Completed 8 days of therapy with ceftriaxone (11) Elevated troponin: Patient denies any chest pain. Continue with aspirin. Thrombocytopenia - Daughter stated that she does not want him to go to a longterm. She is making all the necessary arrangements and wants him home today. Total Time Total Time Spent Total Time Spent (In Minutes): 45 mins Total Time Includes: Examination of the Patient, Discharge Planning and Medication Reconciliation Discharge Plan Discharge Items Patient Disposition: Hospice - Home Reason For Visit: CHILLS,HYPOTENSION Discharge Diagnosis: (1) Sepsis (2) COVID-19: Acute respiratory failure with hypoxia: (3) COPD (4) History of tobacco abuse: (5) History of head and neck cancer: (6) INNA (acute kidney injury): (7) Hypotension: (8) Uses feeding tube: (9) Diabetes: (10) Acute UTI (urinary tract infection): (11) Elevated troponin: (12) Thrombocytopenia Condition on Discharge: Serious Activity: As commented below Activity Comment: as tolerated Lifting: None Bathing: No limitations Exercise/Sports: None Weightbearing Comment: Weight bearing as tolerated/fall risk Non-emergency contact: Primary Care Provider Call non-emergency contact if: you have any medication questions Follow-up/Referrals: Mary Hicks DO [Primary Care Provider] - (Date & Time 04/29/2020 12:40 PM Provider Mary Hicks DO Department [facility] PLEASE NOTE THAT THIS IS A TELEPHONE APPOINTMENT. YOUR PHYSICIAN WILL CALL YOU AT THE APPOINTMENT TIME. IF YOU HAVE ANY QUESTIONS REGARDING YOUR APPOINTMENT, PLEASE CALL ) Diet: Other - See Diet Comment Diet Comment: "bolus TF regimen: 1 carton (250 ml) of Fibersource HN 6x/day (sample sched Addtl Attending Provider Instructions: none Pending Studies at Discharge: No Stand-Alone Forms: My [facility] Medications and DC Order Prescriptions: New Lantus Solostar U-100 Insulin 100 unit/mL (3 mL) Insulin Pen 27 unit SC DAILY Qty: 15 RF: 0 Continued enalapril maleate 10 mg Tablet 10 mg PO BID RF: 0 aspirin 81 mg Tablet,Delayed Release (Dr/Ec) 81 mg PO QAM RF: 0 tamsulosin 0.4 mg Capsule 0.4 mg PO HS RF: 0 amlodipine 10 mg Tablet 10 mg PO QAM RF: 0 metoprolol tartrate 50 mg Tablet 50 mg PO BID RF: 0 cholecalciferol (vitamin D3) [Vitamin D3] 2,000 unit Tablet 2,000 unit PO QAM RF: 0 albuterol sulfate 90 mcg/actuation Hfa Aerosol Inhaler 2 puff INHALATION QID PRN (Reason: Shortness Of Breath Or Wheezing) RF: 0 albuterol sulfate 2.5 mg /3 mL (0.083 %) solution for nebulization 2.5 mg INH Q6H PRN (Reason: shortness of breath or wheezing) Qty: 180 RF: 0 finasteride 5 mg Tablet 5 mg PO DAILY RF: 0 Discontinued glipizide 5 mg Tablet 5 mg PO DAILY RF: 0 Discharge Orders: Discharge Order (Routine); Ordered 04/30/20 Ordered By: Rajeev Colbert/Other Patient Handouts: High Blood Sugar (Hyperglycemia), Hypoglycemia (Low Blood Sugar), Managing Type 2 Diabetes, 2019-[facility] Admission Data Admit Date/Time: 04/18/20 06:00 Attending Provider: Rajeev Urrutia Admit Provider: Abner Brock Primary Care Provider: Mary Hicks Other Providers: Abner Brock ; Sukumar Spaulding ; Rosa Daley ; [facility] ; Chhaya Keane
[2020-04-30] MEDS: FINASTERIDE 5 MG TAB PO SCH (10:06)
[2020-04-30] MEDS: ASPIRIN 81 MG CHEW PEG SCH (10:06)
[2020-04-30] MEDS: CHOLECALCIFEROL 1,000 UNITS 25 MCG TAB PEG SCH (10:07)
--- NOTE | 2020-04-30 11:45 | Palliative Care Progress Note ---
Date of Service April 30, 2020 Assessment & Plan (1) Palliative care encounter: Plan for discharge home today with hospice. I spoke with his daughter, Tamia, on the phone. She reports having good support and feels ready to care for him at home. She denied any questions or concerns. Admission and Anticipated Discharge Date Admission Date: April 18, 2020 Subjective Resting comfortably. Review of Systems Review of Systems: limited due to covid 19 Physical Exam Constitutional: + thin and + frail appearing; no acute distress Respiratory: + uses accessory muscles and + cough Gastrointestinal (Abdomen): Inspection/Auscultation: abdomen not distended Musculoskeletal: Extremities: + muscle atrophy Results & Data ([facility]) Vital Signs (Past 12 Hours) Vital Signs Temp Pulse Resp BP Pulse Ox 04/30/20 07:55 98.4 F 126 H 20 136/73 92 04/30/20 00:10 99.5 F 108 H 18 124/65 89 L PG Care Time/CCT Total # of Minutes Spent Total Time Spent with Patient: Total time spent is greater than 50% in coordination of care (as documented) at patient's floor/unit and/or counseling patient: Coding Level of Care Code 63078 Subseq Hosp Care Lvl 1 Diagnoses Palliative care encounter Z51.5
== END 2020-04-30 17:36 | disposition hospice, home (50) ==
LOC: ED 00:51 → SUATTDRO 06:00 → 2S 06:00 → 2W 04-26 14:09

== ENCOUNTER 2021-01-19 06:18 | Inpatient (IN) ==
[2021-01-19] MEDS ORDERED: SODIUM CHLORIDE 0.9% 1000ML 1,000 ML IV STA (06:27)
[2021-01-19] MEDS ORDERED: MoRPHine SULFATE 4 MG/ML 1 ML CARP\\VIAL IV PRN (06:27)
[2021-01-19] MEDS ORDERED: ONDANSETRON INJ 2 MG/ML 2 ML VIAL IV STA (06:27)
--- NOTE | 2021-01-19 06:31 | Emergency Department Note ---
Impression & Plan Catheter-associated urinary tract infection, Abdominal pain ED Provider Note NAME: ILIANA HENSLEY AGE: 75 SEX: M : 1945 ARRIVES VIA: Ambulance INFORMANT: Patient, EMS ED PROVIDER(S): Sadiq Hooks DO CHIEF COMPLAINT: Abdominal pain HPI: The patient is a 75-year-old male who has a history of head neck cancer who presented to the emergency department for an evaluation of abdominal pain. The patient describes lower abdominal pain which began gradually over the last 24 hours but then became significantly worse this morning. The patient has a chronic indwelling Matute catheter. He states that this is not been changed recently. It was scheduled to be changed but the appointment could not be made. The patient has hematuria as well as cloudy urine. The catheter reportedly was draining urine. The patient was noted to have significant tachycardia prior to arrival. The patient himself denies having any chest pain or difficulty breathing but does complain of a dry cough. He has a history of COPD. He stat es his cough is not new for him. He is not been seen by his primary care physician recently. He denies having any fever. He denies having any swelling in the legs. ROS: See above HPI for pertinent positives & negatives. A total of 10 systems reviewed and were otherwise negative. PAST MEDICAL HISTORY: See Below PAST SURGICAL HISTORY: See Below FAMILY HISTORY: See Below SOCIAL HISTORY: See Below HOME MEDICATIONS: See Below ALLERGIES: See Below VITALS: See Below PHYSICAL EXAMINATION: GENERAL: The patient is awake and alert. He appears very cachectic appearing. 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 EARS, NOSE, MOUTH AND THROAT: The nose is without any evidence of any deformity. Mucous members are dry. NECK: The neck is nontender and supple. RESPIRATORY: Normal respiratory effort is noted there is no evidence of wheezing rhonchi or rales CARDIOVASCULAR: Tachycardic and regular heart sounds are noted to auscultation. There is no definite murmur. GASTROINTESTINAL: The abdomen was soft. There is suprapubic tenderness to palpation with bladder fullness. A feeding tube was in place. The site was clear. The Matute was draining cloudy urine with gross hematuria noted in the tube. MUSCULOSKELETAL/EXTREMITIES: There is no evidence of gross deformity full range of motion is noted in the hips and shoulders. SKIN: There is no obvious evidence of any rash. There are no petechiae, pallor or cyanosis noted. NEUROLOGIC: Patient is awake alert and oriented x3. MEDICAL DECISION MAKING: The patient is a 75-year-old male who presented to the emergency department for an evaluation of abdominal pain. The patient has a history of head neck cancer. He has a chronic indwelling Matute. He reports that this was not changed at the usual time. His urine appears to be consistent with urinary tract infection. I did review the patient's recent cultures. He has had E. coli which has been resistant to multiple antibiotics as well as Pseudomonas in the urine. The patient was treated with Zosyn in the emergency department. He was also treated with IV pain medication and IV normal saline. I discussed the patient's condition with the on-call [facility]. Given the patient's antibiotic resistance pattern he may require inpatient IV antibiotics. They have agreed to evaluate the patient in the emergency department for further management and disposition. Triage Nursing notes reviewed. Prior medical records reviewed Vital Signs: reviewed and remarkable for no significant abnormalities Differential diagnosis: Testicular torsion, mass, infection, hernia, hydrocele, epididymitis, STI, trauma, intra-abdominal process, as well as other pathologies. ER treatment provided: See below Diagnostics interpreted by me: ECG: none Cardiac Monitoring: An order was placed for continuous cardiac monitoring. The monitor shows a rate of 150 bpm with sinus tachycardia. Laboratory studies: As stated above and show below. Imaging studies: See below Consultation(s): I discussed this case with Citlaly who is on-call for the [facility] group. They will evaluate the patient. Past Med/Surg History Medical History Acute respiratory failure with hypoxia COPD (chronic obstructive pulmonary disease) Diabetes Family history non-contributory History of head and neck cancer History of tobacco abuse Hypertension Lung nodules Tongue cancer Surgical History No pertinent past surgical history Family History (Updated 01/19/21 @ 06:28 by Sadiq Hooks DO) Other Family history non-contributory Social History Smoking Status: Former smoker Tobacco Type: Cigarettes Hx Alcohol Use: No Hx Substance Use: No Preferred Language: Irish Communication Ability: Effective Communication Consultant Required: No Beliefs That Will Affect Care: None Current Living Situation: Family Feels Safe at Home: Yes Assistive Devices: Glasses and Oxygen - Continuous Allergies Allergies Allergy/AdvReac Type Severity Reaction Status Date / Time No Known Allergies Allergy Verified 11/29/20 11:46 Home Meds Home Medications Medication Instructions Recorded Confirmed aspirin 81 mg tablet,delayed 81 mg PO QAM 05/18/18 01/19/21 release (Aspirin Low Dose) metoprolol tartrate 50 mg tablet 50 mg PO BID 05/18/18 01/19/21 (Lopressor) albuterol sulfate 90 mcg/actuation 2 puff INHALATION Q4H PRN 05/27/19 01/19/21 aerosol inhaler (Ventolin HFA) albuterol sulfate 2.5 mg INH Q4H PRN 11/29/20 01/19/21 glipizide 10 mg tablet (Glucotrol) 10 mg PO DAILY 11/29/20 01/19/21 Results & Data (ED) Vital Signs Vital Signs - 24 hr 01/19/21 06:26 01/19/21 06:30 01/19/21 06:40 Temperature Temperature Source Pulse Rate 139 H 137 H 136 H Pulse Rate [Apical] Pulse Rate from SpO2 Sensor 140 H 133 H Pulse Rhythm Pulse Strength Respiratory Rate 15 25 H 20 Respiratory Effort / Characteristics Respiratory Depth Respiratory Pattern Blood Pressure Blood Pressure [Left Arm] Blood Pressure Mean Blood Pressure Mean [Left Arm] Blood Pressure Position Pulse Oximetry 98 99 Oxygen Delivery Method Oxygen Flow Rate Sepsis Recent Fever Within 48 Hours Sepsis New/Unexplained Change in Mental Status Sepsis Action Taken by Nursing 01/19/21 06:47 01/19/21 06:50 01/19/21 07:00 Temperature 36.6 C Temperature Source Oral Pulse Rate 143 H 132 H 128 H Pulse Rate [Apical] Pulse Rate from SpO2 Sensor 132 H 129 H Pulse Rhythm Regular Pulse Strength Normal Respiratory Rate 18 26 H 13 Respiratory Effort / Characteristics Non-Labored Respiratory Depth Normal Respiratory Pattern Regular Blood Pressure 130/107 H Blood Pressure [Left Arm] Blood Pressure Mean 114 Blood Pressure Mean [Left Arm] Blood Pressure Position Sitting Pulse Oximetry 98 100 100 Oxygen Delivery Method Nasal Cannula Oxygen Flow Rate 2 Sepsis Recent Fever Within 48 Hours No Sepsis New/Unexplained Change in Mental Status N/A Sepsis Action Taken by Nursing No Action Required 01/19/21 07:10 01/19/21 07:20 01/19/21 07:30 Temperature Temperature Source Pulse Rate 130 H 131 H 134 H Pulse Rate [Apical] Pulse Rate from SpO2 Sensor 130 H 131 H 133 H Pulse Rhythm Pulse Strength Respiratory Rate 16 17 19 Respiratory Effort / Characteristics Respiratory Depth Respiratory Pattern Blood Pressure Blood Pressure [Left Arm] Blood Pressure Mean Blood Pressure Mean [Left Arm] Blood Pressure Position Pulse Oximetry 100 100 100 Oxygen Delivery Method Oxygen Flow Rate Sepsis Recent Fever Within 48 Hours Sepsis New/Unexplained Change in Mental Status Sepsis Action Taken by Nursing 01/19/21 07:40 01/19/21 07:50 01/19/21 08:00 Temperature Temperature Source Pulse Rate 132 H 120 H 122 H Pulse Rate [Apical] Pulse Rate from SpO2 Sensor 132 H 119 H 122 H Pulse Rhythm Pulse Strength Respiratory Rate 23 16 15 Respiratory Effort / Characteristics Respiratory Depth Respiratory Pattern Blood Pressure 143/99 H Blood Pressure [Left Arm] Blood Pressure Mean 113 Blood Pressure Mean [Left Arm] Blood Pressure Position Pulse Oximetry 100 100 100 Oxygen Delivery Method Oxygen Flow Rate Sepsis Recent Fever Within 48 Hours Sepsis New/Unexplained Change in Mental Status Sepsis Action Taken by Nursing 01/19/21 08:10 01/19/21 08:17 01/19/21 08:20 Temperature Temperature Source Pulse Rate 126 H 130 H Pulse Rate [Apical] 120 H Pulse Rate from SpO2 Sensor 127 H 131 H Pulse Rhythm Pulse Strength Respiratory Rate 15 20 17 Respiratory Effort / Characteristics Respiratory Depth Respiratory Pattern Blood Pressure Blood Pressure [Left Arm] 143/99 H Blood Pressure Mean Blood Pressure Mean [Left Arm] 113 Blood Pressure Position Pulse Oximetry 100 100 100 Oxygen Delivery Method Room Air Oxygen Flow Rate Sepsis Recent Fever Within 48 Hours Sepsis New/Unexplained Change in Mental Status Sepsis Action Taken by Nursing 01/19/21 08:30 01/19/21 08:40 01/19/21 08:50 Temperature Temperature Source Pulse Rate 124 H 122 H 121 H Pulse Rate [Apical] Pulse Rate from SpO2 Sensor 124 H 122 H 122 H Pulse Rhythm Pulse Strength Respiratory Rate 16 15 17 Respiratory Effort / Characteristics Respiratory Depth Respiratory Pattern Blood Pressure Blood Pressure [Left Arm] Blood Pressure Mean Blood Pressure Mean [Left Arm] Blood Pressure Position Pulse Oximetry 100 99 99 Oxygen Delivery Method Oxygen Flow Rate Sepsis Recent Fever Within 48 Hours Sepsis New/Unexplained Change in Mental Status Sepsis Action Taken by Nursing 01/19/21 09:00 01/19/21 09:10 01/19/21 09:20 Temperature Temperature Source Pulse Rate 120 H 126 H 122 H Pulse Rate [Apical] Pulse Rate from SpO2 Sensor 120 H 125 H 123 H Pulse Rhythm Pulse Strength Respiratory Rate 15 15 15 Respiratory Effort / Characteristics Respiratory Depth Respiratory Pattern Blood Pressure Blood Pressure [Left Arm] Blood Pressure Mean Blood Pressure Mean [Left Arm] Blood Pressure Position Pulse Oximetry 99 100 100 Oxygen Delivery Method Oxygen Flow Rate Sepsis Recent Fever Within 48 Hours Sepsis New/Unexplained Change in Mental Status Sepsis Action Taken by Nursing 01/19/21 09:30 01/19/21 09:40 01/19/21 09:50 Temperature Temperature Source Pulse Rate 119 H 122 H 121 H Pulse Rate [Apical] Pulse Rate from SpO2 Sensor 119 H 122 H 123 H Pulse Rhythm Pulse Strength Respiratory Rate 15 15 16 Respiratory Effort / Characteristics Respiratory Depth Respiratory Pattern Blood Pressure 131/90 Blood Pressure [Left Arm] Blood Pressure Mean 103 Blood Pressure Mean [Left Arm] Blood Pressure Position Pulse Oximetry 100 100 100 Oxygen Delivery Method Oxygen Flow Rate Sepsis Recent Fever Within 48 Hours Sepsis New/Unexplained Change in Mental Status Sepsis Action Taken by Nursing 01/19/21 10:00 01/19/21 10:10 01/19/21 10:20 Temperature Temperature Source Pulse Rate 121 H 120 H 118 H Pulse Rate [Apical] 120 H Pulse Rate from SpO2 Sensor 122 H 120 H 118 H Pulse Rhythm Pulse Strength Respiratory Rate 19 14 16 Respiratory Effort / Characteristics Respiratory Depth Respiratory Pattern Blood Pressure 121/89 Blood Pressure [Left Arm] 121/89 Blood Pressure Mean 99 Blood Pressure Mean [Left Arm] 99 Blood Pressure Position Pulse Oximetry 100 100 100 Oxygen Delivery Method Nasal Cannula Oxygen Flow Rate 2 Sepsis Recent Fever Within 48 Hours Sepsis New/Unexplained Change in Mental Status Sepsis Action Taken by Nursing 01/19/21 10:30 01/19/21 10:40 01/19/21 10:50 Temperature Temperature Source Pulse Rate 121 H 121 H 119 H Pulse Rate [Apical] Pulse Rate from SpO2 Sensor 121 H 122 H 118 H Pulse Rhythm Pulse Strength Respiratory Rate 19 21 18 Respiratory Effort / Characteristics Respiratory Depth Respiratory Pattern Blood Pressure Blood Pressure [Left Arm] Blood Pressure Mean Blood Pressure Mean [Left Arm] Blood Pressure Position Pulse Oximetry 99 99 99 Oxygen Delivery Method Oxygen Flow Rate Sepsis Recent Fever Within 48 Hours Sepsis New/Unexplained Change in Mental Status Sepsis Action Taken by Nursing 01/19/21 11:00 01/19/21 11:10 01/19/21 11:20 Temperature Temperature Source Pulse Rate 120 H 120 H 121 H Pulse Rate [Apical] Pulse Rate from SpO2 Sensor 121 H 120 H 122 H Pulse Rhythm Pulse Strength Respiratory Rate 23 19 21 Respiratory Effort / Characteristics Respiratory Depth Respiratory Pattern Blood Pressure 125/77 Blood Pressure [Left Arm] Blood Pressure Mean 93 Blood Pressure Mean [Left Arm] Blood Pressure Position Pulse Oximetry 99 100 100 Oxygen Delivery Method Oxygen Flow Rate Sepsis Recent Fever Within 48 Hours Sepsis New/Unexplained Change in Mental Status Sepsis Action Taken by Nursing 01/19/21 11:30 01/19/21 11:40 01/19/21 11:50 Temperature Temperature Source Pulse Rate 120 H 115 H 119 H Pulse Rate [Apical] Pulse Rate from SpO2 Sensor 119 H 115 H 120 H Pulse Rhythm Pulse Strength Respiratory Rate 17 18 22 Respiratory Effort / Characteristics Respiratory Depth Respiratory Pattern Blood Pressure Blood Pressure [Left Arm] Blood Pressure Mean Blood Pressure Mean [Left Arm] Blood Pressure Position Pulse Oximetry 100 100 100 Oxygen Delivery Method Oxygen Flow Rate Sepsis Recent Fever Within 48 Hours Sepsis New/Unexplained Change in Mental Status Sepsis Action Taken by Nursing 01/19/21 12:00 01/19/21 12:10 01/19/21 12:20 Temperature Temperature Source Pulse Rate 121 H 120 H 114 H Pulse Rate [Apical] Pulse Rate from SpO2 Sensor 118 H 120 H 114 H Pulse Rhythm Pulse Strength Respiratory Rate 22 24 17 Respiratory Effort / Characteristics Respiratory Depth Respiratory Pattern Blood Pressure Blood Pressure [Left Arm] Blood Pressure Mean Blood Pressure Mean [Left Arm] Blood Pressure Position Pulse Oximetry 95 99 99 Oxygen Delivery Method Oxygen Flow Rate Sepsis Recent Fever Within 48 Hours Sepsis New/Unexplained Change in Mental Status Sepsis Action Taken by Nursing 01/19/21 12:30 01/19/21 12:40 01/19/21 12:50 Temperature Temperature Source Pulse Rate 113 H 113 H 115 H Pulse Rate [Apical] Pulse Rate from SpO2 Sensor 114 H 114 H 115 H Pulse Rhythm Pulse Strength Respiratory Rate 17 17 18 Respiratory Effort / Characteristics Respiratory Depth Respiratory Pattern Blood Pressure 126/77 Blood Pressure [Left Arm] Blood Pressure Mean 93 Blood Pressure Mean [Left Arm] Blood Pressure Position Pulse Oximetry 100 99 97 Oxygen Delivery Method Oxygen Flow Rate Sepsis Recent Fever Within 48 Hours Sepsis New/Unexplained Change in Mental Status Sepsis Action Taken by [facility] Medications Current Medication List: was personally reviewed by me Laboratory Data Attestation: I reviewed the patient's lab results. Result diagrams: 01/19/21 06:40 01/19/21 06:40 Lab Results 01/19/21 01/19/21 01/19/21 Range/Units 06:40 06:40 06:40 WBC 11.91 H (4.8-10.8) K/uL RBC 4.67 L (4.7-6.1) M/uL Hgb 13.9 L (14.0-18.0) g/dL Hct 42.6 (42-52) % MCV 91.2 (80-100) fL MCH 29.8 (25-34) pg MCHC 32.6 (32-36) g/dL RDW Std Deviation 51.1 H (36.4-46.3) fL RDW Coeff of Jose R 15.3 H (11.5-14.5) % Plt Count 269 (130-400) K/uL MPV 11.5 H (7.4-10.4) fL Immature Gran % (Auto) 0.3 % Neut % (Auto) 80.1 % Lymph % (Auto) 12.8 % Dickey % (Auto) 6.3 % Eos % (Auto) 0.3 % Baso % (Auto) 0.2 % Neut # (Auto) 9.55 H (1.4-6.5) K/uL Lymph # (Auto) 1.52 (1.2-3.4) K/uL Dickey # (Auto) 0.75 H (0.11-0.59) K/uL Eos # (Auto) 0.04 (0-0.5) K/uL Baso # (Auto) 0.02 (0-0.2) K/uL Immature Gran # (Auto) 0.03 H (0.00-0.02) K/uL PT 10.3 (9.0-12.0) Seconds INR 1.0 (0.9-1.1) APTT 27.0 (21.0-31.0) Seconds PTT Ratio 1.0 Sodium 140 (136-145) mmol/L Potassium 3.9 (3.5-5.1) mmol/L Chloride 104 (98-107) mmol/L Carbon Dioxide 24 (21-32) mmol/L Anion Gap 12.0 H (3-11) BUN 25 H (7-18) mg/dl Creatinine 0.79 (0.6-1.4) mg/dl Est Cr Clr Drug Dosing Not Reportable Est GFR ( Amer) 101.1 ml/min Est GFR (Non-Af Amer) 87.2 ml/min BUN/Creatinine Ratio 31.2 H (10-20) Glucose 166 H (70-99) mg/dl Lactate (0.4-2.0) mmol/L Calcium 9.3 (8.5-10.1) mg/dl Total Bilirubin 1.0 (0.2-1) mg/dl AST 15 (15-37) U/L ALT 14 (12-78) U/L Alkaline Phosphatase 91 (45-117) U/L Troponin I < 0.015 (0-0.045) ng/ml Total Protein 8.3 H (6.4-8.2) gm/dl Albumin 2.9 L (3.4-5.0) gm/dl Globulin 5.4 H (2.5-4.0) gm/dl Albumin/Globulin Ratio 0.5 L (0.9-2) Lipase 81 (73-393) U/L Urine Color Urine Appearance (Clear) Urine pH (4.5-7.5) Ur Specific Fulda (1.000-1.030) Urine Protein (Negative) Urine Glucose (UA) (Negative) Urine Ketones (Negative) Urine Blood (Negative) Urine Nitrite (Negative) Urine Bilirubin (Negative) Urine Urobilinogen (Negative) Ur Leukocyte Esterase (Negative) Urine RBC (0-4) /hpf Urine WBC (0-5) /hpf Ur Epithelial Cells (0-5) /lpf Urine Bacteria (Negative) SARS-CoV-2, RNA, NAAT (NEGATIVE) 01/19/21 01/19/21 01/19/21 Range/Units 08:20 09:00 Unknown WBC (4.8-10.8) K/uL RBC (4.7-6.1) M/uL Hgb (14.0-18.0) g/dL Hct (42-52) % MCV (80-100) fL MCH (25-34) pg MCHC (32-36) g/dL RDW Std Deviation (36.4-46.3) fL RDW Coeff of Jose R (11.5-14.5) % Plt Count (130-400) K/uL MPV (7.4-10.4) fL Immature Gran % (Auto) % Neut % (Auto) % Lymph % (Auto) % Dickey % (Auto) % Eos % (Auto) % Baso % (Auto) % Neut # (Auto) (1.4-6.5) K/uL Lymph # (Auto) (1.2-3.4) K/uL Dickey # (Auto) (0.11-0.59) K/uL Eos # (Auto) (0-0.5) K/uL Baso # (Auto) (0-0.2) K/uL Immature Gran # (Auto) (0.00-0.02) K/uL PT (9.0-12.0) Seconds INR (0.9-1.1) APTT (21.0-31.0) Seconds PTT Ratio Sodium (136-145) mmol/L Potassium (3.5-5.1) mmol/L Chloride (98-107) mmol/L Carbon Dioxide (21-32) mmol/L Anion Gap (3-11) BUN (7-18) mg/dl Creatinine (0.6-1.4) mg/dl Est Cr Clr Drug Dosing Est GFR ( Amer) ml/min Est GFR (Non-Af Amer) ml/min BUN/Creatinine Ratio (10-20) Glucose (70-99) mg/dl Lactate 2.4 H* (0.4-2.0) mmol/L Calcium (8.5-10.1) mg/dl Total Bilirubin (0.2-1) mg/dl AST (15-37) U/L ALT (12-78) U/L Alkaline Phosphatase (45-117) U/L Troponin I (0-0.045) ng/ml Total Protein (6.4-8.2) gm/dl Albumin (3.4-5.0) gm/dl Globulin (2.5-4.0) gm/dl Albumin/Globulin Ratio (0.9-2) Lipase (73-393) U/L Urine Color Red Urine Appearance Cloudy A (Clear) Urine pH (4.5-7.5) Ur Specific Fulda 1.021 (1.000-1.030) Urine Protein (Negative) Urine Glucose (UA) (Negative) Urine Ketones (Negative) Urine Blood (Negative) Urine Nitrite (Negative) Urine Bilirubin (Negative) Urine Urobilinogen (Negative) Ur Leukocyte Esterase (Negative) Urine RBC >30 H (0-4) /hpf Urine WBC >30 H (0-5) /hpf Ur Epithelial Cells 5-10 H (0-5) /lpf Urine Bacteria 1+ H (Negative) SARS-CoV-2, RNA, NAAT NEGATIVE (NEGATIVE) Administered Medications Discontinued Medications Sodium Chloride (Nss 1000ml) 1,000 mls @ 999 mls/hr IV .[id number] STA Stop: 01/19/21 07:27 Last Infusion: 01/19/21 11:22 Dose: 0 mls/hr Documented by: [id number] Infusion: 01/19/21 10:27 Dose: 0 mls/hr Documented by: [id number] Admin: 01/19/21 07:38 Dose: 999 mls/hr Documented by: [id number] Piperacillin Sod/Tazobactam Sod (Zosyn) 4.5 gm in 120 mls @ 240 mls/hr IV NOW ONE Stop: 01/19/21 10:21 Last Infusion: 01/19/21 11:22 Dose: 0 mls/hr Documented by: [id number] Admin: 01/19/21 10:27 Dose: 240 mls/hr Documented by: [id number] Ondansetron HCl (Ondansetron Inj 2 Mg/Ml 2 Ml Vial) 4 mg IV NOW STA Stop: 01/19/21 06:28 Last Admin: 01/19/21 07:37 Dose: 4 mg Documented by: [id number] Imaging Data Radiologist's Impression: Chest X-Ray 01/19/21 06:27 XR chest 1V portable CLINICAL HISTORY: Atypical chest pain. Abdominal pain. COMPARISON STUDY: Chest CT April 18, 2020. Chest radiograph April 24, 2020. FINDINGS: A 2.6 cm right suprahilar nodule has significantly increased in size since chest CT of April 18, 2020. There is mild right hilar enlargement. Mild left basilar opacity is present. No evidence for pulmonary edema. Cardiac size is normal. No pneumothorax or pleural effusion is noted. IMPRESSION: 1. Significant increase in size of a 2.6 cm right suprahilar nodule since chest CT of April 18, 2020. This is highly suggestive of malignancy. 2. Right hilar enlargement which may reflect lymphadenopathy. 3. Mild left basilar opacity. ACT 112: Positive. There are findings on this exam that require communication between the performing entity and the patient following Patient Test Result Information Act ([place] Act 112) guidelines. Electronically signed by: Rio Dunlap M.D. 01/19/2021 7:09 AM Discharge Plan Visit Data Chief Complaint: Abdominal Pain Stated Complaint: ABDOMINAL PAIN ED Provider: Sadiq Hooks Discharge Problem: Catheter-associated urinary tract infection, Abdominal pain Patient Disposition: Being Evaluated by Hospitalist Discharge Instructions Interventions: ED Discharge Assessment Last Done: 01/19/21 13:20 Forms Stand Alone Forms: [employer] Prescriptions Prescriptions: No Action aspirin [Aspirin Low Dose] 81 mg Tablet,Delayed Release (Dr/Ec) 81 mg PO QAM RF: 0 metoprolol tartrate [Lopressor] 50 mg Tablet 50 mg PO BID RF: 0 albuterol sulfate [Ventolin HFA] 90 mcg/actuation Hfa Aerosol Inhaler 2 puff INHALATION Q4H PRN (Reason: Shortness Of Breath Or Wheezing) RF: 0 glipizide [Glucotrol] 10 mg Tablet 10 mg PO DAILY RF: 0 albuterol sulfate 2.5 mg /3 mL (0.083 %) solution for nebulization 2.5 mg INH Q4H PRN (Reason: shortness of breath or wheezing) RF: 0 Referrals Referrals: Mary Hicks DO [Primary Care Provider] -
[2021-01-19 06:56] LABS: Basophils # (auto) 0.02 K/uL (0-0.2); Basophils % (auto) 0.2 %; Eosinophils # (auto) 0.04 K/uL (0-0.5); Eosinophils % (auto) 0.3 %; Hematocrit (blood only) 42.6 % (42-52); Hemoglobin 13.9 g/dL (14.0-18.0); Immature Granulocytes # (auto) 0.03 K/uL (0.00-0.02); Immature Granulocytes % (auto) 0.3 %; Lymphocytes # (auto) 1.52 K/uL (1.2-3.4); Lymphocytes % (auto) 12.8 %; Mean Corpuscular Hemoglobin 29.8 pg (25-34); Mean Corpuscular Hgb Conc 32.6 g/dL (32-36); Mean Corpuscular Volume 91.2 fL (80-100); Mean Platelet Volume 11.5 fL (7.4-10.4); Monocytes # (auto) 0.75 K/uL (0.11-0.59); Monocytes % (auto) 6.3 %; Neutrophils # (auto) 9.55 K/uL (1.4-6.5); Neutrophils % (auto) 80.1 %; Platelet Count 269 K/uL (130-400); RDW Coefficient of Variation 15.3 % (11.5-14.5); RDW Standard Deviation 51.1 fL (36.4-46.3); Red Blood Count 4.67 M/uL (4.7-6.1); White Blood Count 11.91 K/uL (4.8-10.8)
[2021-01-19 07:06] LABS: Prothrombin Time 10.3 Seconds (9.0-12.0)
--- NOTE | 2021-01-19 07:11 | XRay Report ---
XR chest 1V portable CLINICAL HISTORY: Atypical chest pain. Abdominal pain. COMPARISON STUDY: Chest CT April 18, 2020. Chest radiograph April 24, 2020. FINDINGS: A 2.6 cm right suprahilar nodule has significantly increased in size since chest CT of 2020. There is mild right hilar enlargement. Mild left basilar opacity is present. No eviden ce for pulmonary edema. Cardiac size is normal. No pneumothorax or pleural effusion is noted. IMPRESSION: 1. Significant increase in size of a 2.6 cm right suprahilar nodule since chest CT of April 18. This is highly suggestive of malignancy. 2. Right hilar enlargement which may reflect lymphadenopathy. 3. Mild left basilar opacity. ACT 112: Positive. There are findings on this exam that require communication between the performing entity and the patient following Patient Test Result Information Act ([place] Act 112) guidelines. Electronically signed by: Rio Dunlap M.D. 01/19/2021 7:09 AM
[2021-01-19 07:12] LABS: Alanine Aminotransferase 14 U/L (12-78); Albumin Level 2.9 gm/dl (3.4-5.0); Aspartate Aminotransferase 15 U/L (15-37); BUN Creatinine Ratio 31.2 (10-20); Blood Urea Nitrogen 25 mg/dl (7-18); Calcium 9.3 mg/dl (8.5-10.1); Carbon Dioxide 24 mmol/L (21-32); Chloride 104 mmol/L (98-107); Est GFR (African American) 101.1 ml/min; Est GFR (Non-African American) 87.2 ml/min; Glucose 166 mg/dl (70-99); Lipase 81 U/L (73-393); Potassium 3.9 mmol/L (3.5-5.1); Sodium 140 mmol/L (136-145)
[2021-01-19 07:17] LABS: Albumin Globulin Ratio 0.5 (0.9-2); Alkaline Phosphatase 91 U/L (45-117); Globulin 5.4 gm/dl (2.5-4.0); Total Protein 8.3 gm/dl (6.4-8.2); Troponin I < 0.015 ng/ml (0-0.045)
[2021-01-19 09:38] LABS: Appearance Urine Cloudy (Clear); Color Urine Red; Specific Gravity Urine 1.021 (1.000-1.030)
[2021-01-19 09:42] LABS: RBC Urine >30 /hpf (0-4); WBC Urine >30 /hpf (0-5)
[2021-01-19 09:44] LABS: Bacteria Urine 1+ (Negative)
[2021-01-19] MEDS ORDERED: PIPERACILL/TAZOBAC CONSULT ACTIVE PRN ×2 (09:52→14:08)
[2021-01-19] MEDS ORDERED: PIPERACILLIN/TAZOBACTAM 4.5 GM/120 ML BAG IV ONE (09:52)
--- NOTE | 2021-01-19 10:32 | History & Physical Report ---
Date of Service January 19, 2021 Assessment & Plan (1) UTI (urinary tract infection): (2) Chronic indwelling Matute catheter: Plan: - Admit to med surg -UA appears to be grossly infected, follow urine culture, + hematuria - Holding aspirin with hematuria for now - possibly hold on dc pending improvement -Treating with IV Zosyn due to history of multiresistance to E. coli ESBL, Pseudomonas aeruginosa, and Klebsiella on most recent urinary tract infections earlier this fall -Previously was being changed by hospice -on outpatient review of records it seems he was following with hospice with center home care as of the end of August 2020, confirmed with daughter - Hold on palliative care consult as the patient already is set up for this at home - Bladder scans prn (3) History of head and neck cancer: Plan: -History of such, status post surgical resection and XRT (4) Lung cancer: Plan: -History of lung mass, CXR reviewed showing 2.6 cm right suprahilar nodule since chest CT of April 18, 2020. This is highly suggestive of malignancy. 2. Right hilar enlargement which may reflect lymphadenopathy. 3. Mild left basilar opacity. - No further workup being warranted with pt on hospice (5) Diabetes: Plan: - Last A1c is 6.8, ISS with Accu-Cheks ACHS - Hold glipizide (6) Hypertension: Plan: -Continue metoprolol tartrate 50 mg twice daily, baby aspirin (7) COPD (chronic obstructive pulmonary disease): Plan: -Continue inhalers, Ventolin as needed (8) Uses feeding tube: Plan: -Status post gastrostomy DVT ppx: - teds, scds CODE: DNR/DNI Dispo: From home, likely to remain in the hospital x 1-2 days. 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 He has an indwelling chronic Matute which has not been changed recently, he is also noticing hematuria and cloudy urine. Patient reports that his Matute catheter was due to be changed 2 weeks ago. History of growing out urine cultures with E. coli ESBL with multiple drug resistances, Pseudomonas aeruginosa, Klebsiella pneumonia. His lactic acid is found to be 2.4, leukocytosis with WBC = 11.91. He has been started on IV Zosyn in the ER. Discussed with his daughter, Tamia. Pt is on hospice at home, they do not verbally mention to the patient that he is on hospice, and they do not want to have mention of or other end of life things to him for fear of worsening anxiety. He is aware of being on hospice however becomes easily distressed. Will provide all efforts to keep that conversation lighthearted while here in hospital. Pt currently has hospice set up at home and does not need any further equipment. She reports that he is primarily bedbound, does not take any medication or food via mouth and that it all goes through gastrostomy tube. Allergies Allergy/AdvReac Type Severity Reaction Status Date / Time No Known Allergies Allergy Verified 11/29/20 11:46 Home Medications Medication Instructions Recorded Confirmed Type aspirin 81 mg tablet,delayed 81 mg PO QAM 05/18/18 01/19/21 History release (Aspirin Low Dose) metoprolol tartrate 50 mg tablet 50 mg PO BID 05/18/18 01/19/21 History (Lopressor) albuterol sulfate 90 mcg/actuation 2 puff INHALATION Q4H PRN 05/27/19 01/19/21 History aerosol inhaler (Ventolin HFA) albuterol sulfate 2.5 mg INH Q4H PRN 11/29/20 01/19/21 History glipizide 10 mg tablet (Glucotrol) 10 mg PO DAILY 11/29/20 01/19/21 History Past Med/Surg History Medical History Acute respiratory failure with hypoxia COPD (chronic obstructive pulmonary disease) Diabetes Family history non-contributory History of head and neck cancer History of tobacco abuse Hypertension Lung nodules Tongue cancer Surgical History No pertinent past surgical history Family History (Updated 01/19/21 @ 06:28 by Sadiq Hooks DO) Other Family history non-contributory Social History Smoking Status: Former smoker Tobacco Type: Cigarettes Second Hand Exposure: No; Do You Dip or Chew Tobacco: No; Hx Alcohol Use: No Hx Substance Use: No Preferred Language: Ghanaian Communication Ability: Effective Communication Ability Comment: 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 No dyspnea at rest or on exertion Cardiovascular: No chest pain, tightness or palpitations Abdomen: No pain, nausea, vomiting, diarrhea or constipation, + gastrostomy tube Musculoskeletal: No joint pain, calf pain, swelling Neurologic: + generalized weakness, numbness/tingling, + balance problems, does not walk, primarily bedbound Psychiatric: + Anxiety, mild depression Skin: No rash or itch Physical Exam Physical Exam: General: awake, alert, no apparent distress, + cachectic, thin, muscular atrophy Head: Normocephalic, atraumatic ENT: + Blindness bilaterally, left eye virus/pupil is not present, no pharyngeal exudate, mucous membranes moist Chest: Diminished breath sounds, on 3 L via NC with O2 sats 98%, + coarse wet cough, no adventitious breath sounds Cardiac: Sinus tach, + systolic murmur, no JVD, normal peripheral pulses, good capillary refill Abdominal: NABS x 4 quadrants, soft, + gastrostomy tube intact, no surrounding erythema or edema, nondistended, nontender to palpation, no rebound or guarding Extremities: + Chronic venous stasis changes,no peripheral edema or erythema, calfs nontender to palpation Psych: Normal mood and affect Neuro: AAO x 3, strength intact bilaterally and rated 3/5, no motor deficits, speech is clear, no peripheral sensory deficits Results & Data Results & Data ([facility]) Vital Signs (Past 12 Hours) Vital Signs Temp Pulse Pulse Resp BP BP Pulse Ox 01/19/21 08:17 120 H 20 143/99 H 100 01/19/21 06:47 36.6 C 143 H 18 130/107 H 98 Diagnostic Findings Chest X-Ray 01/19/21 06:27 XR chest 1V portable CLINICAL HISTORY: Atypical chest pain. Abdominal pain. COMPARISON STUDY: Chest CT April 18, 2020. Chest radiograph April 24, 2020. FINDINGS: A 2.6 cm right suprahilar nodule has significantly increased in size since chest CT of April 18, 2020. There is mild right hilar enlargement. Mild left basilar opacity is present. No evidence for pulmonary edema. Cardiac size is normal. No pneumothorax or pleural effusion is noted. IMPRESSION: 1. Significant increase in size of a 2.6 cm right suprahilar nodule since chest CT of April 18, 2020. This is highly suggestive of malignancy. 2. Right hilar enlargement which may reflect lymphadenopathy. 3. Mild left basilar opacity. ACT 112: Positive. There are findings on this exam that require communication between the performing entity and the patient following Patient Test Result Inf ormation Act ([place] Act 112) guidelines. Electronically signed by: Rio Dunlap M.D. 01/19/2021 7:09 AM ECG Additional Comments: 19-JAN-2021 06:29:52 [facility]-EDSTAT ROUTINE RETRIEVAL Sinus tachycardia Possible Left atrial enlargement Nonspecific ST abnormality Abnormal ECG When compared with ECG of 29-NOV-2020 16:55, Criteria for Anteroseptal infarct are no longer Present T wave amplitude has decreased in Inferior leads T wave inversion no longer evident in Anterior leads 25mm/s 10mm/mV 150Hz 9.0.9 12SL 241 HD SONIDO: 12 Unconfirmed Vent. rate 138 BPM VA interval 122 ms QRS duration 68 ms QT/QTc 296/448 ms Code Status & VTE Plan Code Status DNR/DNI - discussed with daughterCARMEN via phone Supervising Physician Co-Signing Physician Notes Patient was seen and examined . Agreed with Citlaly RUFF exam assessment and plan. 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 He has an indwelling chronic Matute which has not been changed recently, he is also noticing hematuria and cloudy urine. Patient is on hospice at home. he was found to have elevated lactic acid and leukocytosis on admission. History of ESBL UTI. He received IV Zosyn in the ER. Urine culture and blood culture collected in the ER. We will continue IV antibiotic with Zosyn. Continue monitor closely. MD Ame
[2021-01-19] MEDS ORDERED: ALBUTEROL HFA 8 GM INHALER INH PRN (14:08)
[2021-01-19] MEDS ORDERED: GLUCOSE 40% GEL 15 GM TUBE PO PRN (14:08)
[2021-01-19] MEDS ORDERED: CARBOHYDRATES FOR HYPOGLYCEMIA PO PRN (14:08)
[2021-01-19] MEDS ORDERED: GLUCOSE 10 TABS/TUBE PO PRN (14:08)
[2021-01-19] MEDS ORDERED: ONDANSETRON INJ 2 MG/ML 2 ML VIAL IV PRN (14:08)
[2021-01-19] MEDS ORDERED: GLUCAGON FOR INJ 1 MG VIAL SQ PRN (14:08)
[2021-01-19] MEDS ORDERED: ACETAMINOPHEN 325 MG TAB PO PRN (14:08)
[2021-01-19] MEDS ORDERED: DEXTROSE 50% 50 ML SYRINGE IV PRN (14:08)
[2021-01-19] MEDS ORDERED: METOPROLOL TARTRATE 50 MG TAB PO SCH (14:08)
[2021-01-19] MEDS: INSULIN ASPART 100 UNITS/ML 3 ML PEN SC SCH ×3 (15:57→20:41)
[2021-01-19] MEDS ORDERED: ACETAMINOPHEN SUSP 325 MG/10.15 ML UDC PEG PRN (16:02)
[2021-01-19] MEDS: SODIUM CHLORIDE 0.9% 1000ML 1,000 ML IV SCH (16:12)
[2021-01-19] MEDS: PIPERACILLIN/TAZOBACTAM 3.375 GM in DEXTROSE 5% 100 ML IV SCH (16:48)
--- NOTE | 2021-01-19 18:47 | XRay Report ---
XR KUB/Abdomen 1 view CLINICAL HISTORY: Check PEG tube placement. COMPARISON STUDY: 11/29/2020 TECHNIQUE: Single view of the abdomen. FINDINGS: The bowel gas pattern is within normal limits without evidence for dilatation or obstruction. On the repacker film of the abdomen, surgical clips are again seen to the left of the T12-L1 level. The patient was then injected with nonionic contrast through the PEG tube. The PEG tube is in the mid body of th e stomach. Contrast is seen within the stomach and extending into the small bowel. No extravasation o f contrast is demonstrated. No abnormal calcifications are seen along the course of the urinary tract s bilaterally. No acute osseous pathology. IMPRESSION: 1.PEG tube in the mid body of the stomach with no extravasation of contrast demonstrated. ACT 112: Negative or not required by law. Electronically signed by: Talib Gomez M.D. 01/19/2021 6:45 PM
[2021-01-19] MEDS: TUBE FEEDING WATER FLUSH PEG SCH (20:59)
[2021-01-19] MEDS: FIBERSOURCE HN 1.2 CAL 1000 ML BAG GT SCH (21:03)
[2021-01-19] MEDS: METOPROLOL TARTRATE 50 MG TAB PEG SCH (21:12)
[2021-01-20] MEDS: TUBE FEEDING WATER FLUSH PEG SCH ×6 (00:14→20:06)
[2021-01-20] MEDS: PIPERACILLIN/TAZOBACTAM 3.375 GM in DEXTROSE 5% 100 ML IV SCH ×4 (00:15→23:09)
[2021-01-20] MEDS: SODIUM CHLORIDE 0.9% 1000ML 1,000 ML IV SCH ×4 (03:58→23:09)
[2021-01-20 08:55] LABS: Hematocrit (blood only) 33.7 % (42-52); Hemoglobin 10.9 g/dL (14.0-18.0); Mean Corpuscular Hemoglobin 29.8 pg (25-34); Mean Corpuscular Hgb Conc 32.3 g/dL (32-36); Mean Corpuscular Volume 92.1 fL (80-100); Mean Platelet Volume 11.1 fL (7.4-10.4); Platelet Count 200 K/uL (130-400); RDW Coefficient of Variation 15.5 % (11.5-14.5); RDW Standard Deviation 52.3 fL (36.4-46.3); Red Blood Count 3.66 M/uL (4.7-6.1); White Blood Count 8.96 K/uL (4.8-10.8)
[2021-01-20 09:26] LABS: Albumin Level 2.1 gm/dl (3.4-5.0); BUN Creatinine Ratio 29.9 (10-20); Calcium 8.3 mg/dl (8.5-10.1); Creatinine Clr Calc Pharmacy 70.7 ml/min; Est GFR (African American) 110.9 ml/min; Est GFR (Non-African American) 95.7 ml/min; Potassium 3.5 mmol/L (3.5-5.1)
[2021-01-20 09:31] LABS: Estimated Average Glucose 126 mg/dl
[2021-01-20 09:47] LABS: Albumin Globulin Ratio 0.5 (0.9-2); Bilirubin,Total 1.1 mg/dl (0.2-1); Globulin 4.2 gm/dl (2.5-4.0); Total Protein 6.3 gm/dl (6.4-8.2)
[2021-01-20] MEDS: METOPROLOL TARTRATE 50 MG TAB PEG SCH ×2 (09:51→21:06)
[2021-01-20] MEDS: INSULIN ASPART 100 UNITS/ML 3 ML PEN SC SCH ×4 (09:52→21:07)
--- NOTE | 2021-01-20 22:58 | Hospitalist Progress Note ---
Date of Service January 20, 2021 Assessment & Plan (1) UTI (urinary tract infection): (2) Chronic indwelling Matute catheter: Plan: UA appears to be grossly infected, follow urine culture, + hematuria Holding aspirin with hematuria for now - possibly hold on dc pending improvement History of ESBL with multiresistant drug was treated with IV Zosyn last month Continue IV antibiotic with Zosyn Blood culture pending (3) History of head and neck cancer: Plan: -History of such, status post surgical resection and XRT (4) Lung cancer: Plan: -History of lung mass, CXR reviewed showing 2.6 cm right suprahilar nodule since chest CT of April 18, 2020. This is highly suggestive of malignancy. 2. Right hilar enlargement which may reflect lymphadenopathy. 3. Mild left basilar opacity. - No further workup being warranted with pt on hospice (5) Diabetes: Plan: - Last A1c is 6.8, ISS with Accu-Cheks ACHS - Hold glipizide (6) Hypertension: Plan: -Continue metoprolol tartrate 50 mg twice daily, baby aspirin (7) COPD (chronic obstructive pulmonary disease): Plan: -Continue inhalers, Ventolin as needed (8) Uses feeding tube: Plan: -Status post gastrostomy DVT ppx: - teds, scds CODE: DNR/DNI Dispo: We will discharge once medically stable Admission and Anticipated Discharge Date Admission Date: January 19, 2021 Subjective Pt was seen and examined for follow of UTI Lying in bed with no acute distress Pt said that he feels fine Denies any chest pain, palpitation, dizziness, shortness of breath. Review of Systems Review of Systems: All systems reviewed & are unremarkable except as noted in Subjective Physical Exam Physical Exam: General: awake, al ert, no apparent d istress, + cachect ic, thin, muscular atrophy Head: Nor mocephalic, atraum atic ENT: + Blindn ess bilaterally, l eft eye virus/pupi l is not present, no pharyngeal exud ate, mucous membra rowena moist Chest: D iminished breath s ounds, on 3 L via NC with O2 sats 98 %, + coarse wet co ugh, no adventitio us breath sounds C ardiac: Sinus tach , + systolic murmu r, no JVD, normal peripheral pulses, good capillary re fill Abdominal: NA BS x 4 quadrants, soft, + gastrostom y tube intact, no surrounding erythe ma or edema, nondi stended, nontender to palpation, no rebound or guardin g Extremities: + C hronic venous marito is changes,no jenaro pheral edema or er ythema, calfs nont ronald to palpation Psych: Normal moo d and affect Neuro : AAO x 3, strengt h intact bilateral ly and rated 3/5, no motor deficits, speech is clear, no peripheral sens ory deficits Results & Data Results & Data ([facility]) Vital Signs (Past 12 Hours) Vital Signs Temp Pulse Resp BP Pulse Ox 01/20/21 22:30 36.3 C L 79 16 129/79 100 01/20/21 20:11 90 16 123/69 93 01/20/21 15:36 36.5 C 94 H 18 146/73 H 99
[2021-01-21] MEDS: TUBE FEEDING WATER FLUSH PEG SCH ×7 (00:01→23:48)
[2021-01-21] MEDS: SODIUM CHLORIDE 0.9% 1000ML 1,000 ML IV SCH ×2 (05:43→15:17)
--- NOTE | 2021-01-21 06:05 | Electrocardiogram Report ---
Test Reason : Blood Pressure : / mmHG Vent. Rate : 138 BPM Atrial Rate : 138 BPM P-R Int : 122 ms QRS Dur : 068 ms QT Int : 296 ms P-R-T Axes : 069 068 067 degrees QTc Int : 448 ms Sinus tachycardia Possible Left atrial enlargement Nonspecific ST abnormality Abnormal ECG When compared with ECG of 29-NOV-2020 16:55, T wave amplitude has decreased in Inferior leads T wave inversion no longer evident in Anterior leads Confirmed by eGrmán Echeverria ([id number]) on 01/21/2021 6:04:43 AM Referred By: Confirmed By:Germán Echeverria
[2021-01-21] MEDS: PIPERACILLIN/TAZOBACTAM 3.375 GM in DEXTROSE 5% 100 ML IV SCH (09:05)
[2021-01-21] MEDS: METOPROLOL TARTRATE 50 MG TAB PEG SCH ×2 (09:06→21:45)
[2021-01-21] MEDS: INSULIN ASPART 100 UNITS/ML 3 ML PEN SC SCH ×4 (09:11→21:56)
[2021-01-21] MEDS: FIBERSOURCE HN 1.2 CAL 1000 ML BAG GT SCH ×2 (09:25→15:05)
--- NOTE | 2021-01-21 15:08 | Hospitalist Progress Note ---
Date of Service January 21, 2021 Assessment & Plan (1) UTI (urinary tract infection): (2) Chronic indwelling Lane catheter: Plan: UA appears to be grossly infected, follow urine culture, + hematuria Holding aspirin with hematuria for now - possibly hold on dc pending improvement Was on iv zosyn. Urine culture growing ESBL E coli similar to last month and some months ago. Chronic catheter associated urinary tract infection Hossein and RN report catheter was changed on admission Suspect colonization at this time based on previous urine culture. However, will treat as patient was symptomatic on presentation Change antibiotics to ertapenem for now and await ID recommendations Previously was on home hospice. CM stated agency will not do iv antibiotics at home Discussed with daughter. She will like patient treated. Will continue treatment for now inpatient with plan to dc home to continue home hospice on dc (3) History of head and neck cancer: Plan: -History of such, status post surgical resection and XRT (4) Lung cancer: Plan: -History of lung mass, CXR reviewed showing 2.6 cm right suprahilar nodule since chest CT of April 18, 2020. This is highly suggestive of malignancy. 2. Right hilar enlargement which may reflect lymphadenopathy. 3. Mild left basilar opacity. 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 Being managed for UTI, catheter associated Patient seen and examined today Reports abdominal pain is resolved Reports occasional cough, unchanged Denied chest pain, SOB, fever, palpitation Denied any nausea, vomiting, diarrhea Physical Exam Constitutional: + well hydrated and + thin; no acute distress Eyes: Opaque left cornea ENMT: external ear and nose normal, oropharynx normal Respiratory: normal respiratory effort, lungs clear to auscultation Cardiovascular: RRR S1 S2 Gastrointestinal (Abdomen): normal bowel sounds, soft, nontender, no hepatosplenomegaly TF ongoing Musculoskeletal: No pedal edema Neurologic: PERRL, EOMI, accommodation nl, no face palsy, no dysarthria Genitourinary: lane in situ Results & Data Results & Data ([facility]) Vital Signs (Past 12 Hours) Vital Signs Temp Pulse Resp BP Pulse Ox 01/21/21 07:41 36.6 C 92 H 16 146/78 H 100 Laboratory Results Abnormal lab results 01/20/21 01/21/21 01/21/21 Range/Units 20:42 08:22 12:08 POC Glucose 182 H 183 H 132 H (70-99) mg/dl 01/21/21 Range/Units 16:55 POC Glucose 150 H (70-99) mg/dl
[2021-01-21] MEDS: ERTAPENEM SODIUM 1,000 MG in SODIUM CHLORIDE 0.9% 50 ML IV SCH (16:04)
[2021-01-22] MEDS: SODIUM CHLORIDE 0.9% 1000ML 1,000 ML IV SCH ×3 (02:18→22:42)
[2021-01-22] MEDS: TUBE FEEDING WATER FLUSH PEG SCH ×5 (04:27→20:30)
[2021-01-22] MEDS ORDERED: Nursing to Pharmacy Communication SCH (04:30)
[2021-01-22] MEDS: INSULIN ASPART 100 UNITS/ML 3 ML PEN SC SCH ×3 (06:10→18:41)
[2021-01-22 06:54] LABS: Hematocrit (blood only) 32.6 % (42-52); Hemoglobin 10.7 g/dL (14.0-18.0); Mean Corpuscular Hemoglobin 29.6 pg (25-34); Mean Corpuscular Hgb Conc 32.8 g/dL (32-36); Mean Corpuscular Volume 90.3 fL (80-100); Mean Platelet Volume 11.6 fL (7.4-10.4); Platelet Count 173 K/uL (130-400); RDW Coefficient of Variation 14.6 % (11.5-14.5); RDW Standard Deviation 48.9 fL (36.4-46.3); Red Blood Count 3.61 M/uL (4.7-6.1); White Blood Count 6.55 K/uL (4.8-10.8)
[2021-01-22 07:24] LABS: BUN Creatinine Ratio 15.2 (10-20); Calcium 7.7 mg/dl (8.5-10.1); Creatinine Clr Calc Pharmacy 101.2 ml/min; Est GFR (African American) 128.6 ml/min; Est GFR (Non-African American) 110.9 ml/min; Potassium 3.2 mmol/L (3.5-5.1)
[2021-01-22] MEDS: METOPROLOL TARTRATE 50 MG TAB PEG SCH ×2 (09:50→22:32)
[2021-01-22] MEDS: FIBERSOURCE HN 1.2 CAL 1000 ML BAG GT SCH (10:32)
[2021-01-22 15:47] VITALS: TEMP 97.9
[2021-01-22] MEDS: ERTAPENEM SODIUM 1,000 MG in SODIUM CHLORIDE 0.9% 50 ML IV SCH (15:52)
--- NOTE | 2021-01-22 16:34 | Hospitalist Progress Note ---
Date of Service January 22, 2021 Assessment & Plan (1) UTI (urinary tract infection): (2) Chronic indwelling Matute catheter: Plan: UA appears to be grossly infected, follow urine culture, + hematuria Holding aspirin with hematuria for now - possibly hold on dc pending improvement Was initially on iv zosyn. Urine culture growing ESBL E coli similar to last month and some months ago. Chronic catheter associated urinary tract infection Hossein and RN report catheter was changed on admission Suspect colonization at this time based on previous urine culture. However, will treat as patient was symptomatic on presentation Continue ertapenem for now and await ID recommendations Previously was on home hospice. CM stated agency will not do iv antibiotics at home Will continue treatment for now inpatient with plan to dc home to continue home hospice on dc (3) History of head and neck cancer: Plan: -History of such, status post surgical resection and XRT (4) Lung cancer: Plan: -History of lung mass, CXR reviewed showing 2.6 cm right suprahilar nodule since chest CT of April 18, 2020. This is highly suggestive of malignancy. 2. Right hilar enlargement which may reflect lymphadenopathy. 3. Mild left basilar opacity. 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 Being managed for UTI, catheter associated Patient seen and examined today Denied any abdominal pain Reports occasional cough, unchanged Denied chest pain, SOB, fever, palpitation Denied any nausea, vomiting, diarrhea Physical Exam Constitutional: + well hydrated and + thin; no acute distress Eyes: opaque left cornea ENMT: external ear and nose normal, oropharynx normal Respiratory: normal respiratory effort, lungs clear to auscultation Cardiovascular: RRR S1 S2 Gastrointestinal (Abdomen): normal bowel sounds, soft, nontender, no hepatosplenomegaly Neurologic: PERRL, EOMI, accommodation nl, no face palsy, no dysarthria Genitourinary: Matute in situ Results & Data Results & Data ([facility]) Vital Signs (Past 12 Hours) Vital Signs Temp Pulse Resp BP Pulse Ox 01/22/21 15:46 36.6 C 83 16 150/78 H 99 01/22/21 08:00 36.7 C 87 16 134/74 99 Laboratory Results Abnormal lab results 01/21/21 01/22/21 01/22/21 Range/Units 20:33 06:04 06:36 RBC (4.7-6.1) M/uL Hgb (14.0-18.0) g/dL Hct (42-52) % RDW Std Deviation (36.4-46.3) fL RDW Coeff of Jose R (11.5-14.5) % MPV (7.4-10.4) fL Potassium 3.2 L (3.5-5.1) mmol/L Creatinine 0.44 L (0.6-1.4) mg/dl Glucose 141 H (70-99) mg/dl POC Glucose 142 H 153 H (70-99) mg/dl Calcium 7.7 L (8.5-10.1) mg/dl 01/22/21 01/22/21 Range/Units 06:36 12:21 RBC 3.61 L (4.7-6.1) M/uL Hgb 10.7 L (14.0-18.0) g/dL Hct 32.6 L (42-52) % RDW Std Deviation 48.9 H (36.4-46.3) fL RDW Coeff of Jose R 14.6 H (11.5-14.5) % MPV 11.6 H (7.4-10.4) fL Potassium (3.5-5.1) mmol/L Creatinine (0.6-1.4) mg/dl Glucose (70-99) mg/dl POC Glucose 156 H (70-99) mg/dl Calcium (8.5-10.1) mg/dl
[2021-01-22] MEDS: POTASSIUM CHLORIDE / WTR 10 MEQ/100 ML PLCT IV SCH ×4 (16:42→20:06)
[2021-01-23] MEDS: INSULIN ASPART 100 UNITS/ML 3 ML PEN SC SCH ×4 (00:44→17:27)
[2021-01-23] MEDS: TUBE FEEDING WATER FLUSH PEG SCH ×6 (00:45→21:44)
[2021-01-23] MEDS ORDERED: LOPERAMIDE LIQUID 120 ML BOTTLE PEG STA (05:11)
[2021-01-23] MEDS: FIBERSOURCE HN 1.2 CAL 1000 ML BAG GT SCH ×2 (05:12→22:06)
[2021-01-23] MEDS: METOPROLOL TARTRATE 50 MG TAB PEG SCH ×2 (08:57→21:44)
[2021-01-23] MEDS: SODIUM CHLORIDE 0.9% 1000ML 1,000 ML IV SCH (09:46)
--- NOTE | 2021-01-23 13:48 | Hospitalist Progress Note ---
Date of Service January 23, 2021 Assessment & Plan (1) UTI (urinary tract infection): (2) Chronic indwelling Matute catheter: Plan: UA appears to be grossly infected, follow urine culture, + hematuria Holding aspirin with hematuria for now - possibly hold on dc pending improvement Was initially on iv zosyn. Urine culture growing ESBL E coli similar to last month and some months ago. Chronic catheter associated urinary tract infection Patient and RN had reported catheter was changed on admission Suspect colonization at this time based on previous urine culture. However, will treat as patient was symptomatic on presentation Continue ertapenem for now and await ID recommendations Will likely complete at least 5 days of antibiotics prior to discharge (3) History of head and neck cancer: Plan: -History of such, status post surgical resection and XRT (4) Lung cancer: Plan: -History of lung mass, CXR reviewed showing 2.6 cm right suprahilar nodule since chest CT of April 18, 2020. This is highly suggestive of malignancy. 2. Right hilar enlargement which may reflect lymphadenopathy. 3. Mild left basilar opacity. - No further workup being warranted with pt on hospice (5) Diabetes: Plan: - Last A1c is 6.8, ISS with Accu-Cheks ACHS - Hold glipizide (6) Hypertension: Plan: -Continue metoprolol tartrate 50 mg twice daily, baby aspirin (7) COPD (chronic obstructive pulmonary disease): Plan: -Continue inhalers, Ventolin as needed (8) Uses feeding tube: Plan: -Status post gastrostomy DVT ppx: - tedfilipe, scds CODE: DNR/DNI Dispo: Home on home hospice Possible dc tomorrow depending on ID recommendations Admission and Anticipated Discharge Date Admission Date: January 19, 2021 Subjective 75-year-old male with PMHx of DM type II, HTN, 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 Being managed for UTI, catheter associated Patient seen and examined today Denied any abdominal pain Reports occasional cough, unchanged Denied chest pain, SOB, fever, palpitation Denied any nausea, vomiting, diarrhea Physical Exam Constitutional: + well hydrated and + thin; no acute distress Eyes: Opaque left cornea ENMT: external ear and nose normal, oropharynx normal Respiratory: normal respiratory effort, lungs clear to auscultation Cardiovascular: RRR S1 S2 Gastrointestinal (Abdomen): normal bowel sounds, soft, nontender, no hepatosplenomegaly PEG in situ with TF ongoing Musculoskeletal: No pedal edema Neurologic: PERRL, EOMI, accommodation nl, no face palsy, no dysarthria Results & Data Results & Data ([facility]) Vital Signs (Past 12 Hours) Vital Signs Temp Pulse Resp BP Pulse Ox 01/23/21 07:12 36.6 C 88 16 154/77 H 100 Laboratory Results Abnormal lab results 01/22/21 01/23/21 01/23/21 Range/Units 18:02 00:09 06:11 POC Glucose 141 H 163 H 151 H (70-99) mg/dl 01/23/21 01/23/21 Range/Units 12:12 17:15 POC Glucose 137 H 130 H (70-99) mg/dl
[2021-01-23] MEDS: ERTAPENEM SODIUM 1,000 MG in SODIUM CHLORIDE 0.9% 50 ML IV SCH (16:23)
[2021-01-23 23:39] VITALS: O2SAT 100
[2021-01-24] MEDS: TUBE FEEDING WATER FLUSH PEG SCH ×3 (00:25→09:24)
[2021-01-24] MEDS: INSULIN ASPART 100 UNITS/ML 3 ML PEN SC SCH ×3 (00:25→13:29)
[2021-01-24 07:42] LABS: BUN Creatinine Ratio 18.1 (10-20); Calcium 8.6 mg/dl (8.5-10.1); Creatinine Clr Calc Pharmacy 89.1 ml/min; Est GFR (Non-African American) 105.3 ml/min; Potassium 3.7 mmol/L (3.5-5.1)
[2021-01-24 07:49] VITALS: BP 134/75; PULSE 93
[2021-01-24] MEDS: METOPROLOL TARTRATE 50 MG TAB PEG SCH (09:24)
--- NOTE | 2021-01-24 14:49 | Discharge Summary ---
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 He has an indwelling chronic Lane which has not been changed recently, he is also noticing hematuria and cloudy urine. Patient reports that his Lane catheter was due to be changed 2 weeks ago. History of growing out urine cultures with E. coli ESBL with multiple drug resistances, Pseudomonas aeruginosa, Klebsiella pneumonia. His lactic acid is found to be 2.4, leukocytosis with WBC = 11.91. He has been started on IV Zosyn in the ER. Discussed with his daughter, Tamia. Pt is on hospice at home, they do not verbally mention to the patient that he is on hospice, and they do not want to have mention of or other end of life things to him for fear of worsening anxiety. He is aware of being on hospice however becomes easily distressed. Will provide all efforts to keep that conversation lighthearted while here in hospital. Pt currently has hospice set up at home and does not need any further equipment. She reports that he is primarily bedbound, does not take any medication or food via mouth and that it all goes through gastrostomy tube. Admission Exam Per Admitting Provider General: awake, alert, no apparent distress, + cachectic, thin, muscular atrophy Head: Normocephalic, atraumatic ENT: + Blindness bilaterally, left eye virus/pupil is not present, no pharyngeal exudate, mucous membranes moist Chest: Diminished breath sounds, on 3 L via NC with O2 sats 98%, + coarse wet cough, no adventitious breath sounds Cardiac: Sinus tach, + systolic murmur, no JVD, normal peripheral pulses, good capillary refill Abdominal: NABS x 4 quadrants, soft, + gastrostomy tube intact, no surrounding erythema or edema, nondistended, nontender to palpation, no rebound or guarding Extremities: + Chronic venous stasis changes,no peripheral edema or erythema, calfs nontender to palpation Psych: Normal mood and affect Neuro: AAO x 3, strength intact bilaterally and rated 3/5, no motor deficits, speech is clear, no peripheral sensory deficits Principal Diagnosis Catheter associated ESBL E. coli Urinary tract infection Discharge Exam Constitutional + well hydrated and + thin; no acute distress Eyes Opaque left cornea ENMT external ear and nose normal, oropharynx normal Respiratory normal respiratory effort, lungs clear to auscultation Cardiovascular RRR S1 S2 Gastrointestinal (Abdomen) normal bowel sounds, soft, nontender, no hepatosplenomegaly PEG tube insitu Musculoskeletal No pedal edema Neurologic PERRL, EOMI, accommodation nl, no face palsy, no dysarthria Psychiatric A+Ox3, euthymic affect Genitourinary Lane in situ Discharge Data Allergies Allergy/AdvReac Type Severity Reaction Status Date / Time No Known Allergies Allergy Verified 11/29/20 11:46 Consultations 01/19/21 10:07 ED Decision to Admit Stat 01/21/21 15:04 Consult Infectious Diseases Routine 01/24/21 11:45 Consult Gastroenterology Routine Hospital Course (1) UTI (urinary tract infection): (2) Chronic indwelling Lane catheter: UA appears to be grossly infected, follow urine culture, + hematuria Holding aspirin with hematuria for now - possibly hold on dc pending improvement Was initially on iv zosyn. Urine culture growing ESBL E coli similar to last month and some months ago. Antibiotics was changed to ertapenem Chronic catheter associated urinary tract infection Patient and RN had reported catheter was changed on admission Suspect colonization at this time based on previous urine culture. However, will treat as patient was symptomatic on presentation ID consult by Dr Rodrigues noted on EPIC. Patient has received 5 days of antibiotics. Presenting symptoms completely resolved (3) History of head and neck cancer: -History of such, status post surgical resection and XRT (4) Lung cancer: History of lung mass, CXR reviewed showing 2.6 cm right suprahilar nodule since chest CT of April 18, 2020. This is highly suggestive of malignancy. 2. Right hilar enlargement which may reflect lymphadenopathy. 3. Mild left basilar opacity. No further workup being warranted with pt on hospice (5) Diabetes: Continue home meds (6) Hypertension: (7) COPD (chronic obstructive pulmonary disease): -Continue inhalers, Ventolin as needed (8) Uses feeding tube: Patient's gastrostomy tube came out this morning Medicaid [address] [place] replaced it. Functioning well afterwards I called daughter and updated her Patient discharged home to continue home hospice Total Time Total Time Spent Total Time Spent (In Minutes): 45 Total Time Includes: Examination of the Patient, Discharge Planning, Medication Reconciliation and Other Discharge Plan Discharge Items Patient Disposition: Hospice - Home Reason For Visit: HEMATURIA,CANCER,UTI Discharge Diagnosis: Catheter associated ESBL E. coli Urinary tract infection Activity: Resume your previous activity Non-emergency contact: Primary Care Provider Call non-emergency contact if: you have any medication questions and your symptoms worsen Follow-up/Referrals: Mary Hicks DO [Primary Care Provider] - Diet: Other - See Diet Comment Diet Comment: Continue your home tube feeding Addtl Attending Provider Instructions: Mr Davenport You came to the hospital with abdominal pain and report of cloudy urine and some bloody urine. You were evaluated and noted to have urinary infection. This is likely colonized due to your chronic lane and previous urine culture growing same bacteria. Nevertheless, you were treated with antibiotics and your symptoms resolved. You are being discharged home to continue care by home hospice. It was a pleasure taking care of you. Pending Studies at Discharge: No Stand-Alone Forms: [facility] Medications and DC Order Prescriptions: Continued aspirin [Aspirin Low Dose] 81 mg Tablet,Delayed Release (Dr/Ec) 81 mg PO QAM RF: 0 metoprolol tartrate [Lopressor] 50 mg Tablet 50 mg PO BID RF: 0 albuterol sulfate [Ventolin HFA] 90 mcg/actuation Hfa Aerosol Inhaler 2 puff INHALATION Q4H PRN (Reason: Shortness Of Breath Or Wheezing) RF: 0 glipizide [Glucotrol] 10 mg Tablet 10 mg PO DAILY RF: 0 albuterol sulfate 2.5 mg /3 mL (0.083 %) solution for nebulization 2.5 mg INH Q4H PRN (Reason: shortness of breath or wheezing) RF: 0 Discharge Orders: Discharge Order (Routine); Ordered 01/24/21 Ordered By: Lorin Colbert/Other Patient Handouts: High Blood Sugar (Hyperglycemia), Hypoglycemia (Low Blood Sugar), Managing Type 2 Diabetes Admission Data Admit Date/Time: 01/19/21 10:46 Attending Provider: Lorin Estevez I. Admit Provider: Jeana Mccloud Primary Care Provider: Mary Hicks Other Providers: Jeana Mccloud ; [facility] ; Natan Malcolm ; Lawrence Carias ; Roland Keen I. ; Gael Hickey II ; Izzy Bell ; Lyndon Moreno ; Arturo Rodrigues ; Pierre Ellington Other Interventions: Discharge Summary Assessment (RN) Last Done: 01/24/21 15:11
--- NOTE | 2021-01-24 15:00 | Consultation Report ---
GASTROENTEROLOGY CONSULTATION DATE OF CONSULTATION: 01/24/2021 RACE: . REASON FOR CONSULTATION: Dislodged PEG tube. HISTORY OF PRESENT ILLNESS: Mickey Davenport is a 75-year-old -[place] male who had PEG tub e placed secondary to cancer of the tongue in 2003. He had surgery as well as radiation therapy. He was admitted with COVID pneumonia and acute hypoxic respiratory failure in March of 2020 and was n oted to have newly diagnosed lung cancer on CT imaging. He was admitted on this admission on with a catheter associated urinary tract infection and abdominal pain. He was successfully treat ed for this and was about to be discharged when he was receiving tube feeds and contacted nursing sta ff stating that he felt wet. Nursing evaluated the patient and discovered that his PEG tube had been dislodged. Nursing noted that the internal balloon on the replacement PEG tube was severely deterio rated and there was no trauma at the site. Review of the patient's medical record reveals that he did have a PEG tube replacement in February of 2020 at [facility] with a 24-Angolan repl acement PEG tube in the ER. I was asked to see the patient in consultation and to replace his PEG tub e at the bedside. He had no complaints at the time that I saw him and denied any abdominal pain, fev ers, chills, nausea, vomiting, hematemesis, melena, hematochezia, or specifically PEG site pain or bl eeding. There was a bandage noted over the fistula site for the PEG tube. He denied any further com plaints. PAST MEDICAL HISTORY: Includes COPD, hypertension, diabetes, history of tongue cancer, history of PE G tube placement, thrombocytopenia, malnutrition, UTI, chronic indwelling [place] catheter, lung cancer , catheter-associated UTI. PAST SURGICAL HISTORY: Includes surgery for removal of tongue cancer, PEG tube placement. ALLERGIES: None. CURRENT MEDICATIONS: Tylenol 650 mg via PEG tube q.4 hours p.r.n., albuterol inhaler 2 puffs every 4 hours p.r.n., ertapenem 1 g IV q.24 hours, Fibersource PEG tube feeds, sliding scale insulin, metopr olol 50 mg via PEG b.i.d., morphine 4 mg IV q. 50 minutes p.r.n. pain, Zofran 4 mg IV q.4 p.r.n. naus ea. SOCIAL HISTORY: He is . He lives with family, has 2 children. He is a former smoker. Jef es any illicit drug use. FAMILY HISTORY: Negative for GI malignancy or inflammatory bowel disease. REVIEW OF SYSTEMS: Negative, other than pertinent positives listed in the HPI. PHYSICAL EXAMINATION: VITAL SIGNS: Showed a temperature of 36.6, pulse 93, respirations 16, blood pressure 134/75, pulse o x 100% on 2 liters via nasal cannula. GENERAL: Chronic ill-appearing malnourished, no acute distress. CHEST: Clear to auscultation in the upper lung rueda posteriorly. Decreased breath sounds in bilat eral bases. CARDIOVASCULAR: Regular rate and rhythm. ABDOMEN: Soft, nontender, nondistended. There are positive bowel sounds. He has no appreciable hep atosplenomegaly. His PEG site is dressed. Upon removal of dressing noted to be a fistulous tract fro m prior PEG tube. EXTREMITIES: No clubbing or edema. PSYCHIATRIC: Alert and oriented x3. No evidence of depressed mood. LABORATORY STUDIES: From today include a sodium of 137, potassium 3.7, chloride 101, bicarbonate 33, BUN 9, creatinine 0.5, blood glucose 156, calcium 8.6. IMPRESSION: A 75-year-old -[place] male status post accidental dislodgement of PEG tube, whi ch was placed secondary to history of tongue cancer, status post chemoradiation. PLAN: At the bedside, I examined the patient's prior PEG site. A 24-Angolan Covidien PEG tube replac ement tube was lubricated and easily inserted into the PEG tube fistula site. Using 20 mL of normal s [place], the internal balloon was inflated. The PEG external bumper was noted to be at 4 cm. It was f reely mobile, flushed easily, and it was verified and placed by auscultation as well as flushing. Th e patient denied any pain following the procedure. Nursing was notified and instructed to place a PE G tube dressing over top of the external bumper, not underneath to avoid the complication of buried b umper syndrome. She was also informed to maintain the external bumper at 4 cm with tight seal agains t the skin to prevent the internal balloon from migrating to the distal stomach, which could potentia lly cause a gastric outlet obstruction. The PEG tube is okay to use for PEG tube feedings and for me dication administration and I will sign off the case at this time. Of note, he should have his PEG t ube replaced every 4 to 6 months to prevent deterioration of the internal balloon and subsequently pr event traumatic removal in the future. Once again, thank you for allowing me to participate in the care of this patient. If you have any fu rther questions, please do not hesitate in contacting me. Job ID: [id number]
[2021-01-24] MEDS: ERTAPENEM SODIUM 1,000 MG in SODIUM CHLORIDE 0.9% 50 ML IV SCH (15:42)
== END 2021-01-24 16:35 | disposition hospice, home (50) | DRG 698 ==
LOC: ED 06:18 → SUATTDRO 10:46 → 3W 10:46